=== PATIENT | female | born 1940 | race Caucasian/White ===

== ENCOUNTER 2019-09-26 19:50 | Emergency (ER) | payer OTHER ==
--- OUTSIDE RECORDS SUMMARY | 2019-09-26 19:53 | XMS REPORT ---
:1940 Author Organization eClinicalWorks Care Team Providers Name Role Phone Reinier Maurice Provider Role Unavailable Allergies No Known Allergies Problems Problem Type Condition Code Onset Dates Condition Status Problem Prediabetes R73.09 Active Problem Hypothyroidism E03.9 Active Problem Chronic kidney disease N18.9 Active Problem Balance problem R26.89 Active Problem Osteoarthritis of multiple joints M15.9 Active Problem Urinary incontinence, unspecified R32 Active type Problem Functional incontinence R39.81 Active Problem Hypertension I10 Active Problem Rheumatoid arthritis M06.9 Active Problem 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
--- OUTSIDE RECORDS SUMMARY | 2019-09-26 19:53 | XMS REPORT ---
:1940 Author Organization [employer]Works Care Team Providers Name Role Phone Reinier Maurice Provider Role Unavailable Allergies, Adverse Reactions, Alerts Substance Reaction Event Type N.K.D.A. Info Not Available Non Drug Allergy Problems Problem Type Condition Code Onset Dates Condition Status Assessment Urinary incontinence, unspecified R32 Active type Assessment Bilateral lower extremity edema R60.0 Active Assessment Hyperlipidemia E78.5 Active Assessment Rheumatoid arthritis M06.9 Active Assessment Hypertension I10 Active Assessment Radiculopathy, lumbar region M54.16 Active Assessment Spinal stenosis, lumbar region M48.061 Active without neurogenic claudication Assessment Iron deficiency anemia, unspecified D50.9 Active iron deficiency anemia type Assessment Hypothyroidism E03.9 Active Problem Chronic kidney disease N18.9 Active Problem Hypothyroidism E03.9 Active Problem Osteoarthritis of multiple joints M15.9 Active Problem Rheumatoid arthritis M06.9 Active Problem Hyperlipidemia E78.5 Active Problem Hypertension I10 Active Problem Iron deficiency anemia, unspecified D50.9 Active iron deficiency anemia type Problem Peripheral polyneuropathy G62.9 Active Problem Stasis dermatitis I83.10 Active Problem Pain in left ankle and joints of M25.572 Active left foot Assessment Vitamin B1 deficiency E51.9 Active Problem Anemia, unspecified type D64.9 Active Problem Pain in right foot M79.671 Active Assessment Peripheral polyneuropathy G62.9 Active Problem Urinary incontinence, unspecified R32 Active type Problem 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 Problem Functional incontinence R39.81 Active Problem Balance problem R26.89 Active Assessment Gout M10.9 Active Problem Bilateral lower extremity edema R60.0 Active Assessment Encounter for wheelchair assessment Z76.89 Active Problem Gastro-esophageal reflux disease K21.9 Active without esophagitis Assessment History of fall within past 90 days Z91.81 Active Problem Degenerative joint disease M19.90 Active Assessment Gastro-esophageal reflux disease K21.9 Active without esophagitis Problem Restless legs syndrome G25.81 Active Assessment Physical debility R53.81 Active Problem Constipation K59.00 Active Assessment 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 Problem Prediabetes R73.09 Active Problem Hypokalemia E87.6 Active Problem Gout M10.9 Active Medications Medication Code Code Instructions Start End Status Dosage System Date Date Align [facility] 54176007895 4 MG Orally Active not defined MiraLax [facility] 97305722435 - Orally twice Active 17 gram daily Klor-Con 10 [facility] 52277340609 10 MEQ Orally Active 1 tablet Twice a day with food Allopurinol [facility] 49052393009 100 MG Orally Active 2 tablet Once a day Tramadol HCl [facility] 71781122705 50 MG Orally Active 1 tablet every 6 hrs as needed Fish Oil [facility] [address]-66 Active not defined Neurontin [facility] 07788222208 300 MG Orally Active 1 capsule Once in the morning, 2 caps at bedtime Linzess [facility] 73623318564 290 MCG Orally Active 1 capsule Once a day Hydrocodone-Acet [facility] 08705388240 7.5-325 MG Active 1 tablet aminophen Orally every 6 as needed hrs Pravastatin [facility] 58040226802 20 MG Orally Active 1 tablet Sodium Once a day Sycamore [facility] [address]-70 Active not defined Tricor [facility] 34454982715 145 MG Orally Active 1 tablet Once a day with food Lasix [facility] 05554848265 40 MG Orally Active 1 tablet Twice a day Centrum Silver [facility] 21859363599 - Orally Active not defined Voltaren [facility] 98347084870 1 % Transdermal Active apply to 4 times a day affected area Gabapentin [facility] 14320044955 600 MG Orally Active 1 tablet Once a day Duloxetine HCl [facility] 67433535867 30 MG Orally Active 1 capsule Once a day Benazepril HCl [facility] 81734847902 40 MG Orally Active 1 tablet Once a day Prevacid [facility] 40807747009 30 MG Orally Active 1 capsule Once a day Plaquenil [facility] 90865294292 200 MG Orally Active 1 tablet Twice a day with food or milk B1 Natural [facility] 58876900916 250 MG Orally Active as directed Levothyroxine [facility] 70585188530 112 MCG Orally Active 1 tablet Sodium Once a day on an empty stomach in the morning Results No Known Results Summary Purpose eClinicalWorks Submission
--- OUTSIDE RECORDS SUMMARY | 2019-09-26 19:53 | XMS REPORT ---
:1940 Author Organization eClinicalWorks Care Team Providers Name Role Phone Reinier Maurice Provider Role Unavailable Allergies, Adverse Reactions, Alerts Substance Reaction Event Type N.K.D.A. Info Not Available Non Drug Allergy Problems Problem Type Condition Code Onset Dates Condition Status Assessment Gout M10.9 Active Assessment Gastro-esophageal reflux disease K21.9 Active without esophagitis Assessment Bilateral lower extremity edema R60.0 Active Assessment Encounter for wheelchair assessment Z76.89 Active Assessment Urinary incontinence, unspecified R32 Active type Assessment Spinal stenosis of lumbar region, M48.061 Active unspecified whether neurogenic claudication present Assessment Rheumatoid arthritis M06.9 Active Assessment Hyperlipidemia E78.5 Active Assessment Anemia, unspecified type D64.9 Active Problem Gout M10.9 Active Assessment Hypertension I10 Active Problem Constipation K59.00 Active Assessment Medicare annual wellness visit, Z00.00 Active subsequent Problem Prediabetes R73.09 Active Problem Hypothyroidism E03.9 Active Problem Chronic kidney disease N18.9 Active Problem Balance problem R26.89 Active Problem Urinary incontinence, unspecified R32 Active type Problem Osteoarthritis of multiple joints M15.9 Active Problem Functional incontinence R39.81 Active Assessment Hypothyroidism E03.9 Active Problem Hypertension I10 Active Problem Rheumatoid arthritis M06.9 Active Problem 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 Problem Hyperlipidemia E78.5 Active Assessment 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 Problem Stasis dermatitis I83.10 Active Assessment History of fall within past 90 days Z91.81 Active Problem Degenerative joint disease M19.90 Active Problem Pain in right foot M79.671 Active Assessment Physical debility R53.81 Active Problem Pain in left ankle and joints of M25.572 Active left foot Problem Gastro-esophageal reflux disease K21.9 Active without esophagitis Problem Hypokalemia E87.6 Active Problem Restless legs syndrome G25.81 Active Problem Bilateral lower extremity edema R60.0 Active Medications Medication Code Code Instructions Start End Status Dosage System Date Date Plaquenil [facility] 37074174263 200 MG Orally Active 1 tablet Twice a day with food or milk Levothyroxine [facility] 61837230777 112 MCG Orally Active 1 tablet Sodium Once a day on an empty stomach in the morning Centrum Silver [facility] 30331556307 - Orally Active not defined Fish Oil [facility] [address]-19 Active not defined Lasix [facility] 36275853265 40 MG Orally Active 1 tablet Twice a day Duloxetine HCl [facility] 28000060343 30 MG Orally Active 1 capsule Once a day Klor-Con 10 [facility] 15592991607 10 MEQ Orally Active 1 tablet Twice a day with food Allopurinol [facility] 60240145273 100 MG Orally Active 2 tablet Once a day Neurontin [facility] 84172785758 300 MG Orally Active 1 capsule Once in the morning, 2 caps at bedtime Mirabegron ER [facility] [address]-08 50 MG Orally January 19Jun Active 1 tablet Once a day 2018 Benazepril HCl [facility] 58435857914 40 MG Orally Active 1 tablet Once a day Gabapentin [facility] 09585228702 600 MG Orally Active 1 tablet Once a day Hydrocodone-Acet [facility] 10935641921 7.5-325 MG Active 1 tablet aminophen Orally every 6 as needed hrs Linzess [facility] 59570783693 290 MCG Orally Active 1 capsule Once a day Prevacid [facility] 37716566742 30 MG Orally Active 1 capsule Once a day Voltaren [facility] 12096747647 1 % Transdermal Active apply to 4 times a day affected area Crescent [facility] [address]-30 Active not defined Align [facility] 18947410667 4 MG Orally Active not defined Mirabegron ER [facility] [address]-12 50 MG Orally January 07Jun Active 1 tablet Once a day 2018 Pravastatin [facility] 10259612340 20 MG Orally Active 1 tablet Sodium Once a day Tramadol HCl [facility] 54813965122 50 MG Orally Active 1 tablet every 6 hrs as needed Tricor [facility] 79427569709 145 MG Orally Active 1 tablet Once a day with food MiraLax [facility] 99121823760 - Orally twice Active 17 gram daily Results No Known Results Summary Purpose eClinicalWorks Submission
--- OUTSIDE RECORDS SUMMARY | 2019-09-26 19:53 | XMS REPORT ---
:1940 Author Organization eClinicalWorks Care Team Providers Name Role Phone Maurice Hills Provider Role Unavailable Allergies No Known Allergies Problems Problem Type Condition Code Onset Dates Condition Status Problem Chronic kidney disease N18.9 Active Problem Rheumatoid arthritis M06.9 Active Problem Hypothyroidism E03.9 Active Problem Functional incontinence R39.81 Active Problem Pain in right foot M79.671 Active Problem Balance problem R26.89 Active Problem Osteoarthritis of multiple joints M15.9 Active Problem Anemia, unspecified type D64.9 Active Problem Hyperlipidemia E78.5 Active Problem Hypertension I10 Active Problem Urinary incontinence, unspecified R32 Active type Problem 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 Problem Degenerative joint disease M19.90 Active Problem Restless legs syndrome G25.81 Active Problem Pain in left ankle and joints of M25.572 Active left foot Problem Stasis dermatitis I83.10 Active Problem Hypokalemia E87.6 Active Problem Gout M10.9 Active Problem Bilateral lower extremity edema R60.0 Active Problem Constipation K59.00 Active Assessment Anemia, unspecified type D64.9 Active Problem Gastro-esophageal reflux disease K21.9 Active without esophagitis Problem Prediabetes R73.09 Active Medications No Known Medications Results No Known Results Summary Purpose eClinicalWorks Submission
--- OUTSIDE RECORDS SUMMARY | 2019-09-26 19:54 | XMS REPORT ---
:1940 [facility] Team Providers Name Role Phone Rach Gottlieb Provider Role Unavailable Allergies, Adverse Reactions, Alerts Substance Reaction Event Type N.K.D.A. 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 Problem Functional incontinence R39.81 Active Problem Balance problem R26.89 Active Problem Bilateral lower extremity edema R60.0 Active Problem Gastro-esophageal reflux disease K21.9 Active without esophagitis Problem Degenerative joint disease M19.90 Active Problem Restless legs syndrome G25.81 Active Problem Constipation K59.00 Active Problem Prediabetes R73.09 Active Problem Hypokalemia E87.6 Active Problem Gout M10.9 Active Medications Medication Code Code Instructions Start End Status Dosage System Date Date Hydrocodone-Acet [facility] 93830083182 7.5-325 MG Active 1 tablet aminophen Orally every 6 as needed hrs Align [facility] 11046807695 4 MG Orally Active not defined MiraLax ND 18758863583 - Orally twice Active 17 gram daily Huntly [facility] [address]-13 Active not defined Plaquenil ND 73271288230 200 MG Orally Active 1 tablet Twice a day with food or milk Klor-Con 10 [facility] 32446881372 10 MEQ Orally Active 1 tablet Twice a day with food Fish Oil [facility] [address]-90 Active not defined Gabapentin [facility] 39990218174 600 MG Orally Active 1 tablet Once a day B1 Natural [facility] 43121502651 250 MG Orally Active as directed Pravastatin [facility] 59590411677 20 MG Orally Active 1 tablet Sodium Once a day Tramadol HCl [facility] 26465560351 50 MG Orally Active 1 tablet every 6 hrs as needed Lasix [facility] 39718827349 40 MG Orally Active 1 tablet Twice a day Prevacid [facility] 87017260822 30 MG Orally Active 1 capsule Once a day Benazepril HCl [facility] 47672877075 40 MG Orally Active 1 tablet Once a day Levothyroxine [facility] 45743020016 112 MCG Orally Active 1 tablet Sodium Once a day on an empty stomach in the morning Linzess [facility] 75781548166 290 MCG Orally Active 1 capsule Once a day Duloxetine HCl [facility] 07245701555 30 MG Orally Active 1 capsule Once a day Neurontin [facility] 21343597147 300 MG Orally Active 1 capsule Once in the morning, 2 caps at bedtime Tricor [facility] 81839191603 145 MG Orally Active 1 tablet Once a day with food Voltaren [facility] 10450983974 1 % Transdermal Active apply to 4 times a day affected area Allopurinol [facility] 52298198809 100 MG Orally Active 2 tablet Once a day Centrum Silver [facility] 48313879792 - Orally Active not defined Results No Known Results Summary Purpose eClinicalWorks Submission
[2019-09-26] MEDS ORDERED: LIDOCAINE 1% MPF 30 ML VIAL ONE (20:17)
--- NOTE | 2019-09-26 20:59 | ER ---
Nurse's Notes [facility] Name: Hanane Huizar Age: 79 yrs Sex: Female : 1940 Arrival Date: 09/26/2019 Time: 19:52 Bed 24 Private MD: Diagnosis: Laceration without foreign body of right elbow Presentation: 19:53 Chief complaint: Patient states: lost her balance and fell, skin tear to right elbow, aj1 bleeding is controlled at this time. Coronavirus screen: The patient has NOT traveled to [place] in the past 14 days. Ebola Screen: Patient denies travel to an Ebola-affected area in the 21 days before illness onset. Complicating Factors: There are no complicating factors for this patient. Initial Sepsis Screen: Does the patient meet any 2 criteria? No. Patient's initial sepsis screen is negative. Does the patient have a suspected source of infection? No. Patient's initial sepsis screen is negative. Risk Assessment: Do you want to hurt yourself or someone else? Patient reports no desire to harm self or others. 19:53 Method Of Arrival: EMS: [facility] aj1 19:53 Acuity: ROSEMARY 4 aj1 Triage Assessment: 20:27 General: Appears in no apparent distress. comfortable, Behavior is calm, cooperative, aj1 appropriate for age. Pain: Complains of pain in right elbow. Injury Description: Laceration sustained to right elbow is bleeding no active bleeding noted. Historical: - Allergies: 20:16 No Known Allergies; aj1 - Home Meds: 20:16 benazepril 40 mg Oral tab 1 tab once daily [Active]; gabapentin 300 mg Oral cap 1 cap aj1 morning [Active]; lansoprazole 30 mg Oral cpDR 1 cap once daily [Active]; pravastatin 20 mg Oral tab 1 tab once daily [Active]; duloxetine oral oral [Active]; Myrbetriq oral oral [Active]; hydrocodone-acetaminophen 5-325 mg Oral tab 1 tab every 12 hours [Active]; hydrochlorothiazide Oral [Active]; - Immunization history:: Flu vaccine is up to date. - Social history:: Smoking status: Patient/guardian denies using tobacco. Screenin:28 Abuse screen: Denies threats or abuse. Denies injuries from another. Nutritional aj1 screening: No deficits noted. Tuberculosis screening: No symptoms or risk factors identified. Assessment: 20:28 General: Appears in no apparent distress. comfortable, Behavior is calm, cooperative, aj1 appropriate for age. Pain: Complains of pain in right elbow. Neuro: Level of Consciousness is awake, alert, obeys commands, Oriented to person, place, time, situation. Cardiovascular: Patient's skin is warm and dry. Respiratory: Airway is patent Respiratory effort is even, unlabored, Respiratory pattern is regular, symmetrical. GI: No signs and/or symptoms were reported involving the gastrointestinal system. : No signs and/or symptoms were reported regarding the genitourinary system. EENT: No signs and/or symptoms were reported regarding the EENT system. Derm: Skin is pink, warm \T\ dry. Musculoskeletal: Range of motion: intact in all extremities. Injury Description: Laceration sustained to right elbow is 0.5 to 2.5 cm long, not bleeding. 21:22 Reassessment: Patient appears in no apparent distress at this time. No changes from aj1 previously documented assessment. Patient and/or family updated on plan of care and expected duration. Pain level reassessed. Patient is alert, oriented x 3, equal unlabored respirations, skin warm/dry/pink. Vital Signs: 19:53 BP 121 / 72; Pulse 80; Resp 18; Temp 97.6; Pulse Ox 96% ; Height 5 ft. 8 in. (172.72 aj1 cm); 21:22 BP 135 / 80; Pulse 82; Resp 18; Pulse Ox 97% on R/A; aj1 ED Course: 19:52 Patient arrived in ED. aj1 19:55 Kenny Banda MD is Attending Physician. tw4 20:06 Triage completed. aj1 20:09 Nicki Veloz, RN is Primary Nurse. aj1 20:27 Arm band placed on. aj1 20:28 Patient has correct armband on for positive identification. Bed in low position. Call aj1 light in reach. Side rails up X2. 20:28 Assist provider with laceration repair on right elbow Set up tray. Performed by aj1 Kenny Banda MD. 21:22 Patient did not have IV access during this emergency room visit. aj1 Administered Medications: No medications were administered Outcome: 20:58 Discharge ordered by . tw4 21:22 Discharged to home via wheelchair, with family. aj1 21:22 Condition: good 21:22 Discharge instructions given to patient, Instructed on discharge instructions, follow up and referral plans. medication usage, wound care, Demonstrated understanding of instructions, follow-up care, medications, wound care, Prescriptions given X 1. 21:23 Patient left the ED. aj1 Signatures: Nicki Veloz RN RN aj1 Kenny Banda MD MD tw4
--- NOTE | 2019-09-26 21:24 | EDPHYS ---
Physician Documentation [facility] Name: Hanane Huizar Age: 79 yrs Sex: Female : 1940 Arrival Date: 09/26/2019 Time: 19:52 Bed 24 Private MD: ED Physician Kenny Banda HPI: 21:18 This 79 yrs old Female presents to ER via EMS with complaints of Laceration tw4 To Arm. 21:18 The patient has a laceration related to: occurred at home. The laceration(s) is(are) tw4 located on the . Onset: The symptoms/episode began/occurred today. Associated signs and symptoms: The patient has no apparent associated signs or symptoms. The patient has not experienced similar symptoms in the past. Historical: - Allergies: 20:16 No Known Allergies; aj1 - Home Meds: 20:16 benazepril 40 mg Oral tab 1 tab once daily [Active]; gabapentin 300 mg Oral cap 1 cap aj1 morning [Active]; lansoprazole 30 mg Oral cpDR 1 cap once daily [Active]; pravastatin 20 mg Oral tab 1 tab once daily [Active]; duloxetine oral oral [Active]; Myrbetriq oral oral [Active]; hydrocodone-acetaminophen 5-325 mg Oral tab 1 tab every 12 hours [Active]; hydrochlorothiazide Oral [Active]; - Immunization history:: Flu vaccine is up to date. - Social history:: Smoking status: Patient/guardian denies using tobacco. ROS: 21:18 Constitutional: Negative for fever, chills, and weight loss, Eyes: Negative for injury, tw4 pain, redness, and discharge, Cardiovascular: Negative for chest pain, palpitations, and edema, Respiratory: Negative for shortness of breath, cough, wheezing, and pleuritic chest pain, Abdomen/GI: Negative for abdominal pain, nausea, vomiting, diarrhea, and constipation, Back: Negative for injury and pain, Neuro: Negative for headache, weakness, numbness, tingling, and seizure, Psych: Negative for depression, anxiety, suicide ideation, homicidal ideation, and hallucinations. 21:18 MS/extremity: Positive for laceration, Negative for acute changes, injury or acute deformity, decreased range of motion, deformity, ecchymosis, erythema. Exam: 21:18 Constitutional: This is a well developed, well nourished patient who is awake, alert, tw4 and in no acute distress. Head/Face: Normocephalic, atraumatic. Chest/axilla: Normal chest wall appearance and motion. Nontender with no deformity. No lesions are appreciated. Cardiovascular: Regular rate and rhythm with a normal S1 and S2. No gallops, murmurs, or rubs. Normal PMI, no JVD. No pulse deficits. Respiratory: Lungs have equal breath sounds bilaterally, clear to auscultation and percussion. No rales, rhonchi or wheezes noted. No increased work of breathing, no retractions or nasal flaring. Abdomen/GI: Soft, non-tender, with normal bowel sounds. No distension or tympany. No guarding or rebound. No evidence of tenderness throughout. Neuro: Awake and alert, GCS 15, oriented to person, place, time, and situation. Cranial nerves II-XII grossly intact. Motor strength 5/5 in all extremities. Sensory grossly intact. Cerebellar exam normal. Normal gait. 21:18 Musculoskeletal/extremity: Extremities: noted in the right elbow: laceration, ROM: no acute changes, Circulation is intact in all extremities. Sensation intact. Vital Signs: 19:53 BP 121 / 72; Pulse 80; Resp 18; Temp 97.6; Pulse Ox 96% ; Height 5 ft. 8 in. (172.72 aj1 cm); 21:22 BP 135 / 80; Pulse 82; Resp 18; Pulse Ox 97% on R/A; aj1 Laceration: 21:18 Wound Repair of 5.1cm ( 2in ) subcutaneous laceration to right elbow. Distal tw4 neuro/vascular/tendon intact. Anesthesia: Local anesthetic administered with 3 mls of 1% lidocaine. Wound prep: Moderate cleansing by nurse. Skin closed with 3-0 Ethilon using interrupted sutures and sterile technique. Dressed with 4x4's. Patient tolerated well. MDM: 19:55 Patient medically screened. tw4 21:18 Differential diagnosis: superficial laceration. Data reviewed: vital signs, nurses tw4 notes. Counseling: I had a detailed discussion with the patient and/or guardian regarding: the historical points, exam findings, and any diagnostic results supporting the discharge/admit diagnosis. Special discussion: I discussed with the patient/guardian in detail that at this point there is no indication for admission to the hospital. It is understood, however, that if the symptoms persist or worsen the patient needs to return immediately for re-evaluation. Administered Medications: No medications were administered Disposition: 09/26/19 20:58 Discharged to Home. Impression: Laceration without foreign body of right elbow. - Condition is Stable. - Discharge Instructions: Laceration Care, Adult. - Prescriptions for Cleocin 150 mg Oral Capsule - take 1 capsule by ORAL route every 6 hours for 5 days; 20 capsule. - Medication Reconciliation Form, Thank You Letter, Antibiotic Education, Prescription Opioid Use form. - Follow up: Private Physician; When: Upon discharge from the Emergency Department; Reason: If symptoms return, Recheck today's complaints, Continuance of care, Re-evaluation by your physician. - Problem is new. - Symptoms have improved. Signatures: Nicki Veloz RN RN aj1 Kenny Banda MD MD tw4 Corrections: (The following items were deleted from the chart) 21:23 20:58 09/26/2019 20:58 Discharged to Home. Impression: Laceration without foreign body aj1 of right elbow. Condition is Stable. Forms are Medication Reconciliation Form, Thank You Letter, Antibiotic Education, Prescription Opioid Use. Follow up: Private Physician; When: Upon discharge from the Emergency Department; Reason: If symptoms return, Recheck today's complaints, Continuance of care, Re-evaluation by your physician. Problem is new. Symptoms have improved. tw4
[2019-09-26 21:35] VITALS: BP 121/72; TEMP 97.6; O2SAT 96
== END 2019-09-26 21:23 | disposition home or self-care (01) ==
LOC: ER 19:50
PROC: 0JQG0ZZ Repair Right Lower Arm Subcutaneous Tissue and Fascia, Open Approach (ICD-10-PCS; principal; 2019-09-26)
DX: S51.011A Laceration without foreign body of right elbow, initial encounter (principal); W18.39XA Other fall on same level, initial encounter; Y93.9 Activity, unspecified; Y92.9 Unspecified place or not applicable
CPT/HCPCS: 99283

== ENCOUNTER 2019-10-07 13:32 | Emergency (ER) | payer OTHER ==
--- OUTSIDE RECORDS SUMMARY | 2019-10-07 13:42 | XMS REPORT ---
[...] End Status Dosage System Date Date Plaquenil [facility] 14504229071 200 MG Orally Active 1 tablet Twice a day with food or milk Levothyroxine [facility] 80466139222 112 MCG Orally Active 1 tablet Sodium Once a day on an empty stomach in the morning Centrum Silver [facility] 78162829191 - Orally Active not defined Fish Oil [facility] [address]-55 Active not defined Lasix [facility] 26956977227 40 MG Orally Active 1 tablet Twice a day Duloxetine HCl [facility] 04028380512 30 MG Orally Active 1 capsule Once a day Klor-Con [address] [facility] 05307557102 10 MEQ Orally Active 1 tablet Twice a day with food Allopurinol [facility] 61647725705 100 MG Orally Active 2 tablet Once a day Neurontin [facility] 93097898901 300 MG Orally Active 1 capsule Once in the morning, 2 caps at bedtime Mirabegron ER [facility] [address]-58 50 MG Orally January 19Jun Active 1 tablet Once a day 2018 Benazepril HCl [facility] 39488203337 40 MG Orally Active 1 tablet Once a day Gabapentin [facility] 44986618864 600 MG Orally Active 1 tablet Once a day Hydrocodone-Acet [facility] 81238650061 7.5-325 MG Active 1 tablet aminophen Orally every 6 as needed hrs Linzess [facility] 43559243037 290 MCG Orally Active 1 capsule Once a day Prevacid [facility] 76641915560 30 MG Orally Active 1 capsule Once a day Voltaren [facility] 63187632673 1 % Transdermal Active apply to 4 times a day affected area [place] [facility] [address]-28 Active not defined Align [facility] 38618696891 4 MG Orally Active not defined Mirabegron ER [facility] [address]-41 50 MG Orally January 07Jun Active 1 tablet Once a day 2018 Pravastatin [facility] 05751172575 20 MG Orally Active 1 tablet Sodium Once a day Tramadol HCl [facility] 89306031379 50 MG Orally Active 1 tablet every 6 hrs as needed Tricor [facility] 70745084120 145 MG Orally Active 1 tablet Once a day with food MiraLax [facility] 79251004216 - Orally twice Active 17 gram daily Results No Known Results Summary Purpose eClinicalWorks Submission
--- OUTSIDE RECORDS SUMMARY | 2019-10-07 13:43 | XMS REPORT ---
[...] End Status Dosage System Date Date Align [facility] 46290190554 4 MG Orally Active not defined MiraLax [facility] 74388352232 - Orally twice Active 17 gram daily Klor-Con 10 [facility] 35423796809 10 MEQ Orally Active 1 tablet Twice a day with food Allopurinol [facility] 45033213718 100 MG Orally Active 2 tablet Once a day Tramadol HCl [facility] 99638780469 50 MG Orally Active 1 tablet every 6 hrs as needed Fish Oil [facility] [address]-39 Active not defined Neurontin [facility] 41132472542 300 MG Orally Active 1 capsule Once in the morning, 2 caps at bedtime Linzess [facility] 30211744950 290 MCG Orally Active 1 capsule Once a day Hydrocodone-Acet [facility] 46714864997 7.5-325 MG Active 1 tablet aminophen Orally every 6 as needed hrs Pravastatin [facility] 58199785741 20 MG Orally Active 1 tablet Sodium Once a day Lamont [facility] [address]-05 Active not defined Tricor [facility] 07470187821 145 MG Orally Active 1 tablet Once a day with food Lasix [facility] 46543573461 40 MG Orally Active 1 tablet Twice a day Centrum Silver [facility] 49678599388 - Orally Active not defined Voltaren [facility] 73592779677 1 % Transdermal Active apply to 4 times a day affected area Gabapentin [facility] 89942649912 600 MG Orally Active 1 tablet Once a day Duloxetine HCl [facility] 23331265880 30 MG Orally Active 1 capsule Once a day Benazepril HCl [facility] 58684506978 40 MG Orally Active 1 tablet Once a day Prevacid [facility] 88249757421 30 MG Orally Active 1 capsule Once a day Plaquenil [facility] 30051509739 200 MG Orally Active 1 tablet Twice a day with food or milk B1 Natural [facility] 68943237719 250 MG Orally Active as directed Levothyroxine [facility] 27017539735 112 MCG Orally Active 1 tablet Sodium Once a day on an empty stomach in the morning Results No Known Results Summary Purpose eClinicalWorks Submission
--- OUTSIDE RECORDS SUMMARY | 2019-10-07 13:43 | XMS REPORT ---
:1940 [facility] Team Providers Name Role Phone Rach [...] End Status Dosage System Date Date Hydrocodone-Acet [facility] 97116922236 7.5-325 MG Active 1 tablet aminophen Orally every 6 as needed hrs Align [facility] 11328143459 4 MG Orally Active not defined MiraLax ND 29155913123 - Orally twice Active 17 gram daily [place] [facility] [address]-86 Active not defined Plaquenil ND 49488957041 200 MG Orally Active 1 tablet Twice a day with food or milk Klor-Con [address] [facility] 41828434683 10 MEQ Orally Active 1 tablet Twice a day with food Fish Oil [facility] [address]-37 Active not defined Gabapentin [facility] 99649136760 600 MG Orally Active 1 tablet Once a day B1 Natural [facility] 22999379231 250 MG Orally Active as directed Pravastatin [facility] 12253879997 20 MG Orally Active 1 tablet Sodium Once a day Tramadol HCl [facility] 64968726645 50 MG Orally Active 1 tablet every 6 hrs as needed Lasix [facility] 05365497773 40 MG Orally Active 1 tablet Twice a day Prevacid [facility] 63005495228 30 MG Orally Active 1 capsule Once a day Benazepril HCl [facility] 05498540754 40 MG Orally Active 1 tablet Once a day Levothyroxine [facility] 92480258959 112 MCG Orally Active 1 tablet Sodium Once a day on an empty stomach in the morning Linzess [facility] 30377393150 290 MCG Orally Active 1 capsule Once a day Duloxetine HCl [facility] 67188091784 30 MG Orally Active 1 capsule Once a day Neurontin [facility] 20630215974 300 MG Orally Active 1 capsule Once in the morning, 2 caps at bedtime Tricor [facility] 72972126312 145 MG Orally Active 1 tablet Once a day with food Voltaren [facility] 66587564624 1 % Transdermal Active apply to 4 times a day affected area Allopurinol [facility] 59103891061 100 MG Orally Active 2 tablet Once a day Centrum Silver [facility] 93441429258 - Orally Active not defined Results No Known Results Summary Purpose eClinicalWorks Submission
--- OUTSIDE RECORDS SUMMARY | 2019-10-07 13:43 | XMS REPORT ---
:1940 Author Organization eClinicalWorks Care Team Providers Name Role Phone [place] Provider Role Unavailable Allergies No Known Allergies Problems Problem Type Condition Code Onset Dates Condition Status Problem Rheumatoid arthritis M06.9 Active Problem Hyperlipidemia E78.5 Active Problem Hypertension I10 Active Problem Iron deficiency anemia, unspecified D50.9 Active iron deficiency anemia type Problem Stasis dermatitis I83.10 Active Problem Peripheral polyneuropathy G62.9 Active Problem Pain in left ankle and joints of M25.572 Active left foot Problem Pain in right foot M79.671 Active Problem Anemia, unspecified type D64.9 Active Problem Urinary incontinence, unspecified R32 Active [...] R73.09 Active Problem Hypokalemia E87.6 Active Problem Chronic kidney disease N18.9 Active Problem Osteoarthritis of multiple 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
[2019-10-07] MEDS ORDERED: LIDOCAINE 1% MPF 5 ML VIAL ONE (14:10)
--- NOTE | 2019-10-07 14:35 | ER ---
Nurse's Notes [facility] Name: Hanane Huizar Age: 79 yrs Sex: Female : 1940 Arrival Date: 10/07/2019 Time: 13:37 Bed 20 Private MD: Diagnosis: Wound Dehiscence Presentation: 10/06 14:09 Chief complaint: Patient states: "I came in last week for stitches, my home health vc nurse took one out on Saturday and it was not ready, she took another one out on Saturday and now the whole thing opened back up.". Coronavirus screen: The patient has NOT traveled to a country currently being monitored by the CDC within the last 14 days. Coronavirus screen: The patient has NOT traveled to a country currently being monitored by the CDC within the last 14 days. Proceed with normal triage procedures. Ebola Screen: No symptoms or risks identified at this time. Initial Sepsis Screen: Does the patient meet any 2 criteria? No. Patient's initial sepsis screen is negative. Does the patient have a suspected source of infection? No. Patient's initial sepsis screen is negative. Risk Assessment: Do you want to hurt yourself or someone else? Patient reports no desire to harm self or others. 14:09 Acuity: ROSEMARY 4 vc 14:09 Method Of Arrival: Wheelchair vc 14:26 Onset of symptoms is unknown. vc Triage Assessment: 14:25 General: Appears in no apparent distress. uncomfortable, Behavior is calm, cooperative, vc appropriate for age. Pain: Denies pain. Historical: - Allergies: 14:25 No Known Allergies; vc - Home Meds: 14:25 benazepril 40 mg Oral tab 1 tab once daily [Active]; duloxetine Oral [Active]; vc gabapentin 300 mg Oral cap 1 cap morning [Active]; Hydrochlorothiazide Oral [Active]; hydrocodone-acetaminophen 5-325 mg Oral tab 1 tab every 12 hours [Active]; lansoprazole 30 mg Oral cpDR 1 cap once daily [Active]; Myrbetriq Oral [Active]; pravastatin 20 mg Oral tab 1 tab once daily [Active]; - PMHx: 14:25 Hypothyroidism; Arthritis; spinal stenosis; Hypertension; Hyperlipidemia; vc - Immunization history:: Adult Immunizations up to date. - Social history:: Smoking status: Patient denies any tobacco usage or history of. Screenin:08 Abuse screen: Denies threats or abuse. Nutritional screening: No deficits noted. vc Tuberculosis screening: No symptoms or risk factors identified. Fall Risk None identified. Assessment: 14:27 General: Appears in no apparent distress. Behavior is calm, cooperative, appropriate vc for age. Pain: Denies pain. Neuro: Level of Consciousness is awake, alert, obeys commands, Oriented to person, place, time, situation, Appropriate for age. Cardiovascular: Capillary refill Patient's skin is warm and dry. Respiratory: Airway is patent Respiratory effort is even, unlabored, Respiratory pattern is regular, symmetrical. GI: No signs and/or symptoms were reported involving the gastrointestinal system. : No signs and/or symptoms were reported regarding the genitourinary system. EENT: No signs and/or symptoms were reported regarding the EENT system. Derm: Wound noted right elbow. Musculoskeletal: No signs and/or symptoms reported regarding the musculoskeletal system. Vital Signs: 13:48 BP 131 / 79; Pulse 85; Resp 18; Temp 98.6; Pulse Ox 94% ; Weight 145.15 kg; Height 5 ms ft. 8 in. (172.72 cm); Pain 6/10; 14:30 BP 139 / 77; Pulse 81; Resp 18; Pulse Ox 90% on R/A; vc 13:48 Body Mass Index 48.66 (145.15 kg, 172.72 cm) ms ED Course: 13:37 Patient arrived in ED. fj1 13:44 Otf Paulino FNP-C is [facility]. la1 13:44 Jovanni Lucas MD is Attending Physician. la1 14:03 Elina Lazaro RN is Primary Nurse. vc 14:13 Triage completed. vc 14:26 Arm band placed on. vc 14:27 Patient has correct armband on for positive identification. cardiac monitor on. Pulse vc ox on. 14:30 Assist provider with laceration repair on right elbow that was 2.5 cm. or less using vc sutures. Set up tray. Performed by Otf VALLE Dressed with 4X4s, Kerlix, Patient tolerated well. Patient did not have IV access during this emergency room visit. Administered Medications: 14:20 Drug: Lidocaine (1 %) 5 mg Route: Infiltration; vc Outcome: 14:33 Discharge ordered by MD. dietz 14:50 Discharged to home via wheelchair, with home health nurse 14:50 Condition: good 14:50 Discharge instructions given to patient, Instructed on discharge instructions, follow up and referral plans. medication usage, Demonstrated understanding of instructions, follow-up care. 14:53 Patient left the ED. vc Signatures: Lucinda Bush ms, Lee, DOSIER OPERATOR-C DOSIER OPERATOR-Cla1 Elina Lazaro RN RN Hood Bedoya fj1
--- NOTE | 2019-10-07 14:35 | EDPHYS ---
Physician Documentation [facility] Name: Hanane Huizar Age: 79 yrs Sex: Female : 1940 Arrival Date: 10/07/2019 Time: 13:37 Bed 20 Private MD: ED Physician Jovanni Lucas HPI: 10/06 13:58 This 79 yrs old Female presents to ER via Unassigned with complaints of la1 Suture Recheck. 13:58 Patient presents to ED for recheck of: laceration. The affected area is on the right la1 elbow. Previous treatment: Treatment type: The patient's original treatment included sutures, Previous recheck: sutures removed a few days ago. Progress: The patient reports wound has dehisced . The patient has not experienced similar symptoms in the past. Historical: - Allergies: 14:25 No Known Allergies; vc - Home Meds: 14:25 benazepril 40 mg Oral tab 1 tab once daily [Active]; duloxetine Oral [Active]; vc gabapentin 300 mg Oral cap 1 cap morning [Active]; Hydrochlorothiazide Oral [Active]; hydrocodone-acetaminophen 5-325 mg Oral tab 1 tab every 12 hours [Active]; lansoprazole 30 mg Oral cpDR 1 cap once daily [Active]; Myrbetriq Oral [Active]; pravastatin 20 mg Oral tab 1 tab once daily [Active]; - PMHx: 14:25 Hypothyroidism; Arthritis; spinal stenosis; Hypertension; Hyperlipidemia; vc - Immunization history:: Adult Immunizations up to date. - Social history:: Smoking status: Patient denies any tobacco usage or history of. ROS: 13:58 Constitutional: Negative for fever, chills, and weight loss, Neck: Negative for injury, la1 pain, and swelling, Cardiovascular: Negative for chest pain, palpitations, and edema, Respiratory: Negative for shortness of breath, cough, wheezing, and pleuritic chest pain, Abdomen/GI: Negative for abdominal pain, nausea, vomiting, diarrhea, and constipation, Back: Negative for injury and pain. 13:58 Skin: Negative for injury, rash, and discoloration, Neuro: Negative for headache, weakness, numbness, tingling, and seizure. 13:58 MS/extremity: Positive for laceration. Exam: 13:59 Constitutional: This is a well developed, well nourished patient who is awake, alert, la1 and in no acute distress. Head/Face: Normocephalic, atraumatic. Chest/axilla: Normal chest wall appearance and motion. Respiratory: No increased work of breathing, Skin: Warm, dry with normal turgor. Normal color with no rashes, no lesions, and no evidence of cellulitis. No redness, swelling, or drainage from right elbow wound, tissue appears healthy. About 1cm wound dehiscence in length and about 1cm deep. Full ROM, cap refill < 2 secs distal to wound. Vital Signs: 13:48 BP 131 / 79; Pulse 85; Resp 18; Temp 98.6; Pulse Ox 94% ; Weight 145.15 kg; Height 5 ms ft. 8 in. (172.72 cm); Pain 6/10; 14:30 BP 139 / 77; Pulse 81; Resp 18; Pulse Ox 90% on R/A; vc 13:48 Body Mass Index 48.66 (145.15 kg, 172.72 cm) ms Laceration: 14:31 Wound Repair of 1cm ( 0.4in ) subcutaneous laceration to right elbow. Linear shaped.. la1 Distal neuro/vascular/tendon intact. Anesthesia: Local anesthetic administered with 2 mls of 1% lidocaine. Wound prep: Moderate cleansing with hibiclenz by me. Skin closed with 1 3-0 Prolene using simple sutures and sterile technique. Patient tolerated well. MDM: 13:51 Patient medically screened. la1 14:32 Data reviewed: vital signs, nurses notes, I have discussed the patient's la1 presentation/case with the attending Emergency Department Physician; and as a result, I will discharge patient. Data interpreted: Pulse oximetry: on room air is 94 %. Interpretation: acceptable. Counseling: I had a detailed discussion with the patient and/or guardian regarding: the historical points, exam findings, and any diagnostic results supporting the discharge/admit diagnosis, the need for outpatient follow up, a family practitioner, to return to the emergency department if symptoms worsen or persist or if there are any questions or concerns that arise at home. ED course: wound was deep through sub q tissue, placed one suture to grossly approximate wound. Instructed pt to FU with the next 7-10 days for wound recheck. . 10/06 14:31 Order name: Wound dressing; Complete Time: 16:25 la1 Administered Medications: 14:20 Drug: Lidocaine (1 %) 5 mg Route: Infiltration; vc Disposition: 16:36 Co-signature as Attending Physician, Jovanni Lucas MD I agree with the assessment and kdr plan of care. Disposition: 10/07/19 14:33 Discharged to Home. Impression: Wound Dehiscence. - Condition is Stable. - Discharge Instructions: Laceration Care, Adult, Sutured Wound Care, Sutured Wound Care, [id number], Wound Dehiscence, [id number]. - Medication Reconciliation Form, Thank You Letter form. - Follow up: Private Physician; When: 2 - 3 days; Reason: Recheck today's complaints, Re-evaluation by your physician. - Problem is an ongoing problem. - Symptoms have improved. Signatures: Jovanni Lucas MD MD kdr Otf Paulino, [facility] Elina Lazaro RN RN vc Corrections: (The following items were deleted from the chart) 14:53 14:33 10/07/2019 14:33 Discharged to Home. Impression: Wound Dehiscence. Condition is vc Stable. Forms are Medication Reconciliation Form, Thank You Letter, Antibiotic Education, Prescription Opioid Use. Follow up: Private Physician; When: 2 - 3 days; Reason: Recheck today's complaints, Re-evaluation by your physician. Problem is an ongoing problem. Symptoms have improved. la1
[2019-10-07 15:00] VITALS: BP 131/79; TEMP 98.6; O2SAT 94
== END 2019-10-07 14:53 | disposition home or self-care (01) ==
LOC: ER 13:32
PROC: 0JQG0ZZ Repair Right Lower Arm Subcutaneous Tissue and Fascia, Open Approach (ICD-10-PCS; principal; 2019-10-07)
DX: T81.30XA Disruption of wound, unspecified, initial encounter (principal); I10 Essential (primary) hypertension; E78.5 Hyperlipidemia, unspecified
CPT/HCPCS: 99284

== ENCOUNTER 2019-10-18 08:16 | Emergency (ER) | payer OTHER ==
--- OUTSIDE RECORDS SUMMARY | 2019-10-18 08:19 | XMS REPORT ---
[...] End Status Dosage System Date Date Plaquenil [facility] [place] [facility]] 95718573970 200 MG Orally Active 1 tablet Twice a day with food or milk Levothyroxine [facility] [place] 2] 79328709153 112 MCG Orally Active 1 tablet Sodium Once a day on an empty stomach in the morning Centrum Silver [facility] [place] 2] 79738933634 - Orally Active not defined Fish Oil [facility] [place]NOTE 2[place] [address]-81 Active not defined Lasix [facility] [place] 2] 11747486812 40 MG Orally Active 1 tablet Twice a day Duloxetine HCl [facility] [place]NOTE 2] 90999758819 30 MG Orally Active 1 capsule Once a day Klor-Con 10 [facility] [place]NOTE 2] 25042581639 10 MEQ Orally Active 1 tablet Twice a day with food Allopurinol [facility] [place]NOTE 2] 62616341848 100 MG Orally Active 2 tablet Once a day Neurontin [facility] [place]NOTE 2] 84745186465 300 MG Orally Active 1 capsule Once in the morning, 2 caps at bedtime Mirabegron ER [facility] [place]NOTE 2] [address]-32 50 MG Orally January 19Jun Active 1 tablet Once a day 2018 Benazepril HCl [facility] [place]NOTE 2] 28577255362 40 MG Orally Active 1 tablet Once a day Gabapentin [facility] [place] 2] 95892751626 600 MG Orally Active 1 tablet Once a day Hydrocodone-Acet [facility] [place]NOTE 2] 43853988828 7.5-325 MG Active 1 tablet aminophen Orally every 6 as needed hrs Linzess [facility] [place] 2] 07403443736 290 MCG Orally Active 1 capsule Once a day Prevacid [facility] [place] 2] 96164473718 30 MG Orally Active 1 capsule Once a day Voltaren [facility] [place]NOTE 2] 97550988411 1 % Transdermal Active apply to 4 times a day affected area [place] [facility] [place]NOTE 2[facility] [address]-48 Active not defined Align [facility] [place]NOTE 2] 40521219467 4 MG Orally Active not defined Mirabegron ER [facility] [place]NOTE 2] [address]-19 50 MG Orally January 07Jun Active 1 tablet Once a day 2018 Pravastatin [facility] [place]NOTE 2] 89268985119 20 MG Orally Active 1 tablet Sodium Once a day Tramadol HCl [facility] [place]NOTE 2] 55003236770 50 MG Orally Active 1 tablet every 6 hrs as needed Tricor [facility] [place]NOTE 2] 23645209070 145 MG Orally Active 1 tablet Once a day with food MiraLax [facility] [place]NOTE 2] 57869607461 - Orally twice Active 17 gram daily Results No Known Results Summary Purpose eClinicalWorks Submission
--- OUTSIDE RECORDS SUMMARY | 2019-10-18 08:20 | XMS REPORT ---
[...] End Status Dosage System Date Date Align [facility] 72806788044 4 MG Orally Active not defined MiraLax [facility] 88984349513 - Orally twice Active 17 gram daily Klor-Con 10 [facility] 76142724047 10 MEQ Orally Active 1 tablet Twice a day with food Allopurinol [facility] 67724712375 100 MG Orally Active 2 tablet Once a day Tramadol HCl [facility] 80047473461 50 MG Orally Active 1 tablet every 6 hrs as needed Fish Oil [facility] [address]-36 Active not defined Neurontin [facility] 20808794256 300 MG Orally Active 1 capsule Once in the morning, 2 caps at bedtime Linzess [facility] 01809271945 290 MCG Orally Active 1 capsule Once a day Hydrocodone-Acet [facility] 79060425914 7.5-325 MG Active 1 tablet aminophen Orally every 6 as needed hrs Pravastatin [facility] 43469236096 20 MG Orally Active 1 tablet Sodium Once a day Lynch [facility] [address]-56 Active not defined Tricor [facility] 34425713170 145 MG Orally Active 1 tablet Once a day with food Lasix [facility] 45231439252 40 MG Orally Active 1 tablet Twice a day Centrum Silver [facility] 44352698438 - Orally Active not defined Voltaren [facility] 24889135759 1 % Transdermal Active apply to 4 times a day affected area Gabapentin [facility] 04330720455 600 MG Orally Active 1 tablet Once a day Duloxetine HCl [facility] 17494947756 30 MG Orally Active 1 capsule Once a day Benazepril HCl [facility] 71781206798 40 MG Orally Active 1 tablet Once a day Prevacid [facility] 92288772910 30 MG Orally Active 1 capsule Once a day Plaquenil [facility] 65550573522 200 MG Orally Active 1 tablet Twice a day with food or milk B1 Natural [facility] 86057932652 250 MG Orally Active as directed Levothyroxine [facility] 14452595747 112 MCG Orally Active 1 tablet Sodium Once a day on an empty stomach in the morning Results No Known Results Summary Purpose eClinicalWorks Submission
--- OUTSIDE RECORDS SUMMARY | 2019-10-18 08:20 | XMS REPORT ---
:1940 [facility] Providers Name Role Phone Rcah Gottlieb Provider Role Unavailable Allergies, Adverse Reactions, [...] System Date Date Hydrocodone-Acet [facility] 28508960875 7.5-325 MG Active 1 tablet aminophen Orally every 6 as needed hrs Align [facility] 67067103570 4 MG Orally Active not defined MiraLax ND 26334790135 - Orally twice Active 17 gram daily [place] [facility] [address]-39 Active not defined Plaquenil ND 78093998996 200 MG Orally Active 1 tablet Twice a day with food or milk Klor-Con 10 [facility] 81450043166 10 MEQ Orally Active 1 tablet Twice a day with food Fish Oil [facility] [address]-10 Active not defined Gabapentin [facility] 72067811126 600 MG Orally Active 1 tablet Once a day B1 Natural [facility] 33835892048 250 MG Orally Active as directed Pravastatin [facility] 35663943219 20 MG Orally Active 1 tablet Sodium Once a day Tramadol HCl [facility] 43020044262 50 MG Orally Active 1 tablet every 6 hrs as needed Lasix [facility] 34287339440 40 MG Orally Active 1 tablet Twice a day Prevacid [facility] 46101546956 30 MG Orally Active 1 capsule Once a day Benazepril HCl [facility] 80193514654 40 MG Orally Active 1 tablet Once a day Levothyroxine [facility] 63937099170 112 MCG Orally Active 1 tablet Sodium Once a day on an empty stomach in the morning Linzess [facility] 77443129403 290 MCG Orally Active 1 capsule Once a day Duloxetine HCl [facility] 27797798262 30 MG Orally Active 1 capsule Once a day Neurontin [facility] 27189906651 300 MG Orally Active 1 capsule Once in the morning, 2 caps at bedtime Tricor [facility] 13058991503 145 MG Orally Active 1 tablet Once a day with food Voltaren [facility] 96584901691 1 % Transdermal Active apply to 4 times a day affected area Allopurinol [facility] 82614039742 100 MG Orally Active 2 tablet Once a day Centrum Silver [facility] 71689539069 - Orally Active not defined Results No Known Results Summary Purpose eClinicalWorks Submission
[2019-10-18] MEDS ORDERED: MUPIROCIN 2% OINT 22GM TUBE TOP ONE (09:33)
[2019-10-18] MEDS ORDERED: Mastisol Adhesive Liq ONE (09:35)
--- NOTE | 2019-10-18 09:46 | ER ---
Nurse's Notes [facility] Name: Hanane Huizar Age: 79 yrs Sex: Female : 1940 Arrival Date: 10/18/2019 Time: 08:23 Bed 20 Private MD: Diagnosis: Fall on same level from slipping, tripping and stumbling;Laceration without foreign body of right elbow Presentation: 10/17 08:15 Chief complaint: EMS states: Pt. legs are weak and she fell this morning. denies rb1 hitting head or LOC. Has a previous laceration on the right elbow that has reopened due to the fall. Pain 02/04. History HTN, hypothyroidism, high cholesterol. NKDA, home medications are Benazepril, Gabapentin, and Hydrocodone. BP 148/61, P 80's, 95-98% RA. Care prior to arrival: None. Mechanism of Injury: Fall from standing position. 08:15 Acuity: ROSEMARY 3 rb1 08:15 Method Of Arrival: EMS: [facility] rb1 08:15 Coronavirus screen: Patient denies fever greater than 100.4F, cough, shortness of rb1 breath, or difficulty breathing. Proceed with normal triage process. Ebola Screen: Patient negative for fever greater than or equal to 101.5 degrees Fahrenheit, and additional compatible Ebola Virus Disease symptoms. Initial Sepsis Screen: Does the patient meet any 2 criteria? No. Patient's initial sepsis screen is negative. Does the patient have a suspected source of infection? Yes: Skin breakdown/wound. Risk Assessment: Do you want to hurt yourself or someone else? Patient reports no desire to harm self or others. 08:15 Onset of symptoms was October 18, 2019. rb1 Historical: - Allergies: 08:15 No Known Allergies; rb1 - Home Meds: 08:15 benazepril 40 mg Oral tab 1 tab once daily [Active]; duloxetine Oral [Active]; rb1 gabapentin 300 mg Oral cap 1 cap morning [Active]; Hydrochlorothiazide Oral [Active]; hydrocodone-acetaminophen 5-325 mg Oral tab 1 tab every 12 hours [Active]; lansoprazole 30 mg Oral cpDR 1 cap once daily [Active]; Myrbetriq Oral [Active]; pravastatin 20 mg Oral tab 1 tab once daily [Active]; - PMHx: 08:15 Arthritis; Hyperlipidemia; Hypertension; Hypothyroidism; spinal stenosis; rb1 - Immunization history: Last tetanus immunization: - up to date. - Social history:: Smoking status: Patient/guardian denies using. Screenin:15 Abuse screen: Denies threats or abuse. Nutritional screening: No deficits noted. rb1 Tuberculosis screening: No symptoms or risk factors identified. Fall Risk Fall in past 12 months (25 points). Secondary diagnosis (15 points) impaired mobility, No IV (0 pts). Ambulatory Aid- Crutches/Cane/Walker (15 pts). Gait- Impaired (20 pts.). Mental Status- Oriented to own ability (0 pts). Total Pacheco Fall Scale indicates High Risk Score (45 or more points). Fall prevention measures have been instituted. Side Rails Up X 2 Placed Close to Nursing Station 1:1 Attendant Assigned Frequent Obs/Assessments Occuring As available patient and family educated on Fall Prevention Program and Strategies. Assessment: 08:15 General: Appears in no apparent distress. comfortable, obese, Behavior is calm, rb1 cooperative, Denies feeling ill. Pain: Complains of pain in right elbow Pain currently is 7 out of 10 on a pain scale. Neuro: Level of Consciousness is awake, alert, obeys commands, Oriented to person, place, time, situation. Neuro: Denies blurred vision dizziness, headache. Cardiovascular: Capillary refill < 3 seconds is brisk in bilateral fingers. Cardiovascular: Denies chest pain. Respiratory: Airway is patent Respiratory effort is even, unlabored, Respiratory pattern is regular, symmetrical. GI: No signs and/or symptoms were reported involving the gastrointestinal system. : No signs and/or symptoms were reported regarding the genitourinary system. Derm: Skin is pink, warm \\T\\ dry. Musculoskeletal: Range of motion: intact in all extremities. Injury Description: Laceration sustained to right elbow is not bleeding. 09:11 Reassessment: Patient appears in no apparent distress at this time. No changes from rb1 previously documented assessment. 09:31 Reassessment: Removed the one loose stitch that was in the right elbow. Performed wound rb1 care on the right elbow, pt. tolerated well. Minimal bleeding noted during cleaning and after wound care. 09:58 Reassessment: Called [facility] and spoke to Maddie. She stated, "Unfortunately we [facility] don't have anyone here that can come and get her." I notified Susana, Screener Perfumer that the pt. needs transportation. Discharge pending due to awaiting transportation. 10:15 Reassessment: Patient appears in no apparent distress at this time. Patient and/or rb1 family updated on plan of care and expected duration. Pain level reassessed. Patient is alert, oriented x 3, equal unlabored respirations, skin warm/dry/pink. No bleeding noted on the right elbow dressing. Vital Signs: 08:15 BP 132 / 66; Pulse 80; Resp 19; Temp 99.2(O); Pulse Ox 96% on R/A; Weight 139.71 kg rb1 (R); Height 5 ft. 8 in. (172.72 cm); Pain 7/10; 09:15 BP 146 / 73; Pulse 83; Resp 18; Pulse Ox 97% on R/A; rb1 10:15 BP 128 / 62; Pulse 84; Resp 18; Pulse Ox 97% on R/A; rb1 08:15 Body Mass Index 46.83 (139.71 kg, 172.72 cm) rb1 ED Course: 08:15 Patient has correct armband on for positive identification. Bed in low position. Call rb1 light in reach. Side rails up X2. Pulse ox on. NIBP on. Warm blanket given. 08:15 Arm band placed on right wrist. rb1 08:23 Patient arrived in ED. rb1 08:24 Peggy Zu[facility]C [facility]. kb 08:24 Jovanni Lucas MD is Attending Physician. kb 08:27 Triage completed. rb1 08:38 Nara Lamb, RN is Primary Nurse. rb1 08:58 Shoulder Right (2 View) XRAY In Process Unspecified. EDMS 08:58 Elbow Right 3 View XRAY In Process Unspecified. EDMS 10:37 No provider procedures requiring assistance completed. Patient did not have IV access rb1 during this emergency room visit. Administered Medications: No medications were administered Outcome: 09:45 Discharge ordered by . kb 10:37 Discharged to [facility] rb1 10:37 Condition: stable 10:37 Discharge instructions given to patient, Instructed on discharge instructions, follow up and referral plans. Demonstrated understanding of instructions, follow-up care, Prescriptions given X none 10:38 Patient left the ED. rb1 Signatures: Dispatcher [employer] EDMS Peggy Zuñiga FNP-C [employer]-Ckb Nara Lamb, RN RN rb1
--- NOTE | 2019-10-18 09:46 | EDPHYS ---
Physician Documentation [facility] Name: Hanane Huizar Age: 79 yrs Sex: Female : 1940 Arrival Date: 10/18/2019 Time: 08:23 Bed 20 Private MD: ED Physician Jovanni Lucas HPI: 10/17 08:32 This 79 yrs old Female presents to ER via EMS with complaints of Fall Injury. kb 08:32 Details of fall: The patient fell from an upright position, while walking. Onset: The kb symptoms/episode began/occurred this morning. Associated injuries: The patient sustained right elbow, hematoma, laceration, swelling. Severity of symptoms: At their worst the symptoms were moderate, in the emergency department the symptoms are unchanged. The patient has not experienced similar symptoms in the past. The patient has been recently seen at the [facility] Emergency Department, a couple of weeks ago, for similar complaints. Pt reports she has weakness in her legs that is chronic from spinal stenosis. Was walking to the restroom this morning and fell hitting her right elbow. Reports she has had a laceration to right elbow from a previous fall that has not healed so it busted back open. Old records reviewed, indicating pt had sutures placed on 09/26/19, then had one suture to reapproximate the wound after dehiscence on 10/07/19. Suture noted to wound now, but no longer tied. Bleeding controlled. Hematoma noted below wound with point tenderness. Full ROM of all other extremities in all joints with no pain. No pain with ROM of right wrist or shoulder. Reports some tenderness upon palpation of right shoulder. . Historical: - Allergies: 08:15 No Known Allergies; rb1 - Home Meds: 08:15 benazepril 40 mg Oral tab 1 tab once daily [Active]; duloxetine Oral [Active]; rb1 gabapentin 300 mg Oral cap 1 cap morning [Active]; Hydrochlorothiazide Oral [Active]; hydrocodone-acetaminophen 5-325 mg Oral tab 1 tab every 12 hours [Active]; lansoprazole 30 mg Oral cpDR 1 cap once daily [Active]; Myrbetriq Oral [Active]; pravastatin 20 mg Oral tab 1 tab once daily [Active]; - PMHx: 08:15 Arthritis; Hyperlipidemia; Hypertension; Hypothyroidism; spinal stenosis; rb1 - Immunization history: Last tetanus immunization: - up to date. - Social history:: Smoking status: Patient/guardian denies using. ROS: 08:32 Constitutional: Negative for fever, chills, and weight loss, ENT: Negative for injury, kb pain, and discharge, Neck: Negative for injury, pain, and swelling, Cardiovascular: Negative for chest pain, palpitations, and edema, Respiratory: Negative for shortness of breath, cough, wheezing, and pleuritic chest pain, Abdomen/GI: Negative for abdominal pain, nausea, vomiting, diarrhea, and constipation, Back: Negative for injury and pain, Neuro: Negative for headache, weakness, numbness, tingling, and seizure. 08:32 MS/extremity: Positive for laceration, pain, swelling, tenderness, of the right elbow. 08:39 MS/extremity: Positive for pain, tenderness, of the anterior aspect of right shoulder. kb Exam: 08:39 Constitutional: This is a well developed, well nourished patient who is awake, alert, kb and in no acute distress. Head/Face: Normocephalic, atraumatic. Neck: Trachea midline, no thyromegaly or masses palpated, and no cervical lymphadenopathy. Supple, full range of motion without nuchal rigidity, or vertebral point tenderness. No Meningismus. Chest/axilla: Normal chest wall appearance and motion. Nontender with no deformity. No lesions are appreciated. Cardiovascular: Regular rate and rhythm with a normal S1 and S2. No gallops, murmurs, or rubs. Normal PMI, no JVD. No pulse deficits. Respiratory: Lungs have equal breath sounds bilaterally, clear to auscultation and percussion. No rales, rhonchi or wheezes noted. No increased work of breathing, no retractions or nasal flaring. Abdomen/GI: Soft, non-tender, with normal bowel sounds. No distension or tympany. No guarding or rebound. No evidence of tenderness throughout. Neuro: Awake and alert, GCS 15, oriented to person, place, time, and situation. Cranial nerves II-XII grossly intact. Motor strength 5/5 in all extremities. Sensory grossly intact. Cerebellar exam normal. Normal gait. 08:39 Musculoskeletal/extremity: Extremities: grossly normal except: noted in the anterior aspect of right shoulder: pain, tenderness, noted in the right elbow: laceration, pain, swelling, tenderness, ROM: limited active range of motion due to pain, in the right elbow, Circulation is intact in all extremities. Sensation intact. Vital Signs: 08:15 BP 132 / 66; Pulse 80; Resp 19; Temp 99.2(O); Pulse Ox 96% on R/A; Weight 139.71 kg rb1 (R); Height 5 ft. 8 in. (172.72 cm); Pain 7/10; 09:15 BP 146 / 73; Pulse 83; Resp 18; Pulse Ox 97% on R/A; rb1 10:15 BP 128 / 62; Pulse 84; Resp 18; Pulse Ox 97% on R/A; rb1 08:15 Body Mass Index 46.83 (139.71 kg, 172.72 cm) rb1 MDM: 08:24 Patient medically screened. kb 08:39 Data reviewed: vital signs, nurses notes. Data reviewed: old medical records, noted in kb HPI. Data interpreted: Pulse oximetry: on room air is 96 %. Interpretation: normal. 09:37 Counseling: I had a detailed discussion with the patient and/or guardian regarding: the kb historical points, exam findings, and any diagnostic results supporting the discharge/admit diagnosis, radiology results, the need for outpatient follow up, a family practitioner, to return to the emergency department if symptoms worsen or persist or if there are any questions or concerns that arise at home. 09:42 ED course: Laceration cleaned with hibiclense, benzoine applied around wound and kb steri-strips placed to approximate the wound. Pt educated to keep wound clean and protected. Sutures not placed due to length of time that wound has been open. . 10/17 08:25 Order name: Shoulder Right (2 View) XRAY; Complete Time: 10:00 kb 10/17 08:25 Order name: Elbow Right 3 View XRAY; Complete Time: 10:00 kb 10/17 08:25 Order name: Wound Care; Complete Time: 09:54 kb Administered Medications: No medications were administered Disposition: 13:23 Co-signature as Attending Physician, Jovanni Lucas MD I agree with the assessment and kdr plan of care. Disposition: 10/18/19 09:45 Discharged to Home. Impression: Fall on same level from slipping, tripping and stumbling, Laceration without foreign body of right elbow. - Condition is Stable. - Discharge Instructions: Nonsutured Laceration Care, Fall Prevention in the Home, [id number]. - Medication Reconciliation Form, Thank You Letter, Antibiotic Education, Prescription Opioid Use form. - Follow up: Private Physician; When: 2 - 3 days; Reason: Recheck today's complaints, Continuance of care, Re-evaluation by your physician. Follow up: Emergency Department; When: As needed; Reason: Worsening of condition. Signatures: Dispatcher [employer] EDMS Peggy Zuñiga, EFREN-Anthony TORRESP-Jovanni Mendieta MD MD kdr Nara Lamb, RN RN rb1 Corrections: (The following items were deleted from the chart) 10:38 09:45 10/18/2019 09:45 Discharged to Home. Impression: Fall on same level from rb1 slipping, tripping and stumbling; Laceration without foreign body of right elbow. Condition is Stable. Forms are Medication Reconciliation Form, Thank You Letter, Antibiotic Education, Prescription Opioid Use. Follow up: Private Physician; When: 2 - 3 days; Reason: Recheck today's complaints, Continuance of care, Re-evaluation by your physician. Follow up: Emergency Department; When: As needed; Reason: Worsening of condition. kb
--- NOTE | 2019-10-18 09:49 | RAD REPORT ---
EXAM DESCRIPTION: Shoulder Right 2 View - 10/18/2019 8:57 am CLINICAL HISTORY: PAIN, fall, right shoulder pain COMPARISON: Chest Single View dated 11/18/2016; Chest Single View dated 10/26/2016 TECHNIQUE: Internal and external rotation views of the right shoulder were obtained. FINDINGS: No fracture or dislocation of the proximal humerus seen. On the internal rotation view the re is a curvilinear calcification along the origin could be a joint or tendon calcification. An acute bone injury is not suspected. Acromial humeral joint space is normal. No AC joint separation suspect ed. There is degenerative change at the AC joint. Small bone density along the superior margin of the clavicle at the AC joint could be a small bone injury or joint capsule calcification. Significant A C joint injury is not suspected. No pathologic bone process. IMPRESSION: As detailed above, degenerative changes at the joint are present. An acute fracture is n ot suspected and no dislocation.
--- NOTE | 2019-10-18 09:51 | RAD REPORT ---
EXAM DESCRIPTION: RAD - Elbow Right 3 View - 10/18/2019 8:57 am CLINICAL HISTORY: PAIN, fall, elbow pain COMPARISON: No comparisons FINDINGS: No fracture is identified and there is no dislocation. No periosteal reaction or pathologi c bone changes seen. Calcifications are seen in the soft tissues proximal forearm possibly small vasc ular calcifications. Foreign body is unlikely. Patient has prominent soft tissues along the posterior aspect of the elbow joint and proximal ulna. T here are questionable air densities present. No history was detailed regarding the soft tissue wound. Extension into the capsule is not suspected. Correlation is needed with any posterior elbow soft tis andreas wound. There is no foreign body seen. IMPRESSION: No fracture or dislocation. No acute bone or joint finding seen. Possible posterior extracapsular soft tissue injury. This needs correlation with exam findings. No fo reign body.
[2019-10-18 10:42] VITALS: BP 146/73; O2SAT 97
== END 2019-10-18 10:38 | disposition home or self-care (01) ==
LOC: ER 08:16
DX: S51.011A Laceration without foreign body of right elbow, initial encounter (principal); W01.0XXA Fall on same level from slipping, tripping and stumbling without subsequent striking against object, initial encounter; Y93.9 Activity, unspecified; Y92.9 Unspecified place or not applicable; I10 Essential (primary) hypertension; E03.9 Hypothyroidism, unspecified; E78.5 Hyperlipidemia, unspecified
CPT/HCPCS: 99284

== ENCOUNTER 2020-01-01 14:01 | Emergency (ER) | payer OTHER ==
--- OUTSIDE RECORDS SUMMARY | 2020-01-01 14:19 | XMS REPORT | Clinical Summary ---
:1940 Author Organization [facility] Address [address] [place] [address] Care Team Providers Name Role Phone Asked, Pcp Primary Care Provider Unavailable Allergies Not on File Medications Not on file Active Problems Not on file Social History Tobacco Use Types Packs/Day Years Used Date Never Assessed Sex Assigned at Date Recorded Not on file Job Start Date Occupation Industry Not on file Not on file Not on file Travel History Travel Start Travel End No recent travel history available. 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
--- OUTSIDE RECORDS SUMMARY | 2020-01-01 14:19 | XMS REPORT | Continuity of Care Document ---
:1940 Author Organization [employer] [facility] Care Team Providers Name Role Phone [employer] [facility] Unavailable Un available Problems Problem Status Onset Classification Date Comments Sourc e Date Reported Hyperlipidemia Active Problem 10/17/2019 Misc her (disorder) Neuro Hypertensive Active Problem 10/17/2019 Mische r disorder, systemic N euro arterial (disorder) Hypothyroidism Active Problem 10/17/2019 Misc her (disorder) Neuro Lumbar Active Problem 10/17/2019 [facility] radiculopathy Neuro (disorder) Morbid obesity Active Problem 10/17/2019 Misc her (disorder) Neuro Muscle pain Active Problem 10/17/2019 [facility] (finding) Neuro Peripheral nerve Active Problem 10/17/2019 Mi yuri disease (disorder) N euro Localized edema Active Problem 10/17/2019 Mis eron (finding) Neuro Thiamin deficiency Active Problem 10/17/2019 Mischer (disorder) Neuro Medications Medication Details Route Status Patient Ordering Order Source Instructions Provider Date thiamine 100 mg 100 mg = 1 Active Misch er oral tablet tab, PO, 019 Neuro Daily, X 60 day, # 60 tab, 2 Refill(s), Pharmacy: [id number] duloxetine 30 MG 30 mg = 1 Active Misch er Enteric Coated cap, PO, 019 Neuro Capsule Daily, # [Cymbalta] 30 cap, 3 Refill(s), Pharmacy: [id number] duloxetine 20 MG 20 mg = 1 Active Misch er Enteric Coated cap, PO, 019 Neuro Capsule Daily, # [Cymbalta] 30 cap, 3 Refill(s), Pharmacy: [id number] tramadol 50 mg = 1 Active Mischer hydrochloride 50 tab, PO, 019 Neuro MG Oral Tablet TID, 0 Refill(s) Allergies, Adverse Reactions, Alerts Substance Category Reaction Severity Reaction Status Date Comments S ource type Reported No Known Assertion Drug Misch er Medication allergy Neuro Allergies Immunizations No Data Provided for This Section Results No Data Provided for This Section Pathology Reports No Data Provided for This Section Diagnostic Reports No Data Provided for This Section Consultation Notes No Data Provided for This Section Discharge Summaries No Data Provided for This Section History and Physicals No Data Provided for This Section Vital Signs Vital Sign Value Date Comments Source Systolic (mm Hg) 125 06/18/2019 [facility]any ro Diastolic (mm Hg) 75 06/18/2019 [facility] Heart Rate 90 06/18/2019 [facility] Respitory Rate 16 06/18/2019 [facility] Height 172.72 cm 06/18/2019 [facility] Weight 145.455 06/18/2019 [facility] BMI Calculated 48.76 06/18/2019 [facility] Systolic (mm Hg) 150 04/23/2019 [facility]any ro Diastolic (mm Hg) 87 04/23/2019 [facility] Heart Rate 79 04/23/2019 [facility] Respitory Rate 16 04/23/2019 [facility] Height 172.72 cm 04/23/2019 [facility] Weight 145.455 04/23/2019 [facility] BMI Calculated 48.76 04/23/2019 [facility] Weight 145.455 01/13/2019 [facility] BMI Calculated 48.76 01/13/2019 [facility] Height 172.72 cm 01/13/2019 [facility] Heart Rate 80 01/13/2019 [facility] Respitory Rate 16 01/13/2019 [facility] Systolic (mm Hg) 148 01/13/2019 [facility]any ro Diastolic (mm Hg) 83 01/13/2019 [facility] BMI Calculated 48.76 11/11/2018 [facility] Heart Rate 91 11/11/2018 [facility] Respitory Rate 16 11/11/2018 [facility] Weight 145.455 11/11/2018 [facility] Height 172.72 cm 11/11/2018 [facility] Systolic (mm Hg) 117 11/11/2018 [facility] Diastolic (mm Hg) 68 11/11/2018 [facility] Encounters Location Location Encounter Encounter Reason Attending ADM [place] Stat us Source Details Type Number For Provider Date Date Visit Outpatient [id number] CAREY 09/10 Active [facility] [id number] CAREY 10/14 Active [facility] [id number] Carey 11/11 Active [facility] [place] [facility] [id number] Carey 11/11 11/12 [facility] [id number] [facility]13 [facility] [place] [facility] [id number] Carey 01/13 01/14 [facility] [id number] Carey 04/23 [facility] [id number] Carey 04/23 04/24 [facility] [id number] Carey 06/18 [facility] [place] [facility] [id number] Carey 06/18 Active [facility] [place] [facility] [id number] Carey 06/18 06/18 [facility] [id number] Carey 06/18 06/19 [facility] [id number] Carey 10/14 Active [facility] [place] [facility] [id number] Carey 10/14 10/14 [facility] Procedures Procedure Code Date Perfomer Comments Source Knee replacement [id number] [facility] Neuro Assessment and Plan No Data Provided for This Section Plan of Care No Data Provided for This Section Social History Social History Date Source Social History TypeResponse 09/10/2018 [facility] Neur o Employment/School 1 Smoking Status Unknown if ever smoked; 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 Reinier Ambrose-PCP Family History No Data Provided for This Section Advance Directives No Data Provided for This Section Functional Status No Data Provided for This Section
--- OUTSIDE RECORDS SUMMARY | 2020-01-01 14:20 | XMS REPORT | Summary of Care ---
:1940 Author Organization [facility] Address [address] [place] [address]- phone Encounter HQ Encntr_alijoel(FIN) [id number] Date(s): 10/15/19 - 10/15/19 [facility] [address] [place] [address]- [phone] Attending Physician: Tho Garcia MD Referring Physician: Tho Garcia MD Vital Signs No data available for this section Problem List Condition Effective Dates Status Health Status Informant Hyperlipidemia(Confirmed) Active Hypertension(Confirmed) Active Hypothyroidism(Confirmed) Active Localized edema Active Lumbar radiculopathy(Confirmed) Active Morbid obesity(Confirmed) Active Myalgia(Confirmed) Active Peripheral neuropathy(Confirmed) Active Vitamin B1 deficiency(Confirmed) Active Allergies, Adverse Reactions, Alerts No Known Medication Allergies Medications No data available for this section Results No data available for this section Immunizations No data available for this section Procedures Procedure Date Related Diagnosis Body Site Status Knee replacement Completed Social History Social History Type Response Employment/School 1 Smoking Status Unknown if ever smoked; Expo sure to Tobacco Smoke Unable to obtain; Cigarette Smoking Last 365 Days Unable to obtain; Reg Smoking Cessation Counseling No entered on: 06/18/19 1Can release medical information to - Dr. Reinier Ambrose-PCP Assessment and Plan No data available for this section
--- OUTSIDE RECORDS SUMMARY | 2020-01-01 14:21 | XMS REPORT ---
:1940 Author Organization [employer] Care Team Providers Name Role Phone Reinier Maurice Provider Role Unavailable Allergies No Known Allergies Problems Problem Type Condition Code Onset Dates Condition Statu s Problem Rheumatoid arthritis M06.9 Active Problem Hyperlipidemia E78.5 Active Problem Hypertension I10 Active Problem Iron deficiency anemia, unspecified D50.9 Active iron deficiency anemia type Problem Stasis dermatitis I83.10 Active Problem Peripheral polyneuropathy G62.9 Ac tive Problem Pain in left ankle and joints of M25.572 Active left foot Problem Pain in right foot M79.671 Active Problem Anemia, unspecified type D64.9 Act carrie Problem Urinary incontinence, unspecified R32 Active type Problem 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 Problem Functional incontinence R39.81 Acti ve Problem Balance problem R26.89 Active Problem Bilateral lower extremity edema R60.0 Active Problem Gastro-esophageal reflux disease K21.9 Active without esophagitis Problem Degenerative joint disease M19.90 A ctive Problem Restless legs syndrome G25.81 Activ e Problem Constipation K59.00 Active Problem Prediabetes R73.09 Active Problem Hypokalemia E87.6 Active Problem Chronic kidney disease N18.9 Activ e Problem Osteoarthritis of multiple 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
--- OUTSIDE RECORDS SUMMARY | 2020-01-01 14:21 | XMS REPORT | Continuity of Care Document ---
:1940 Author Organization [facility] t Address [address] [place] [address] Care Team Providers Name Role Phone Asked, Pcp Primary Care Physician Unavailable Edgar Garcia Attending Clinician Problems Condition Condition Condition Status Onset Resolution Last Treating Co mments Source Name Details Category Date Date Treatment Clinician Date Status Status Problem Active [facility] post total post total Maisha kes - right knee right knee Me moria replacemen replacemen l t [facility] Bilateral Bilateral Problem Active [facility] - extremity extremity Jai annabelle edema edema l [facility] Gastro-eso Gastro-eso Problem Active [facility] phageal phageal [facility] - reflux reflux Memoria disease disease l without without Outpati esophagiti esophagiti en t s s Clinics Gout Gout Problem Active [facility] Hypokalemi Hypokalemi Problem Active [facility] Constipati Constipati Problem Active [facility] on [facility] Hyperlipid Hyperlipid Problem Active [facility] emia emia [facility] Hypertensi Hypertensi Problem Active [facility] Rheumatoid Rheumatoid Problem Active [facility] arthritis arthritis Luke s - Memoria l [facility] Chronic Chronic Problem Active [facility] kidney kidney [facility] - disease disease [facility]ics Prediabete Prediabete Problem Active [facility]ics Hypothyroi Hypothyroi Problem Active [facility] dism dism [facility]ics Osteoarthr Osteoarthr Problem Active [facility] itis of itis of [facility] - multiple multiple Memori a joints joints l Outpati ent Clinics Pain in Pain in Problem Active [facility] right foot right foot Maisha kes - [facility] ent Clinics 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 [facility] - disease disease [facility] Restless Restless Problem Active [facility] legs legs [facility] - syndrome syndrome Mem[facility] a l Outpati ent Clinics Pain in Pain in Problem Active [facility] left ankle left ankle Maisha kes - and joints and joints Me moria of left of left l foot foot Outpati ent Clinics Stasis Stasis Problem Active [facility] dermatitis dermatitis Maisha kes - [facility]oria l Outpat[facility] ent Clinics Urinary Urinary Problem Active [facility] incontinen incontinen Maisha kes - ce, ce, Memoria unspecifie unspecifie l d type d type Outpati ent Clinics Balance Balance Problem Active [facility] problem problem [facility]ics Functional Functional Problem Active [facility] incontinen incontinen Maisha kes - ce ce [facility] Anemia, Anemia, Problem Active [facility] unspecifie unspecifie Maisha kes - d type d type Memoria l Outpati ent Clinics Iron Iron Problem Active [facility] deficiency deficiency Maisha kes - anemia, anemia, Memoria unspecifie unspecifie l d iron d iron Outpati deficiency deficiency en t anemia anemia Clinics type type Peripheral Peripheral Problem Active [facility] polyneurop polyneurop Maisha kes - athy athy [facility]oria l [facility] Hyperlipid Problem Active 2019-10-17 M emoria emia 21:49:45 l (disorder) Andrea n Hyperlipid emia (disorder) Active Problem 10/17/2019 [facility] Hypertensi Problem Active 2019-10-17 M emoria ve 21:49:45 l disorder, [place] systemic Hypertensi arterial ve (disorder) disorder, systemic arterial (disorder) Active Problem 10/17/2019 [facility] Hypothyroi Problem Active 2019-10-17 M emoria dism 21:49:45 l (disorder) Andrea n Hypothyroi dism (disorder) Active Problem 10/17/2019 [facility] Lumbar Problem Active 2019-10-17 Memor ia radiculopa 21:49:45 l thy Lumbar [place] (disorder) radiculopa thy (disorder) Active Problem 10/17/2019 [facility] Morbid Problem Active 2019-10-17 Memor ia obesity 21:49:45 l (disorder) Morbid Herm carolyn obesity (disorder) Active Problem 10/17/2019 [facility] Muscle Problem Active 2019-10-17 Memor ia pain 21:49:45 l (finding) Muscle Lizzette nn pain (finding) Active Problem 10/17/2019 [facility] Peripheral Problem Active 2019-10-17 M emoria nerve 21:49:45 l disease Marlon (disorder) Peripheral nerve disease (disorder) Active Problem 10/17/2019 [facility] Localized Problem Active 2019-10-17 Me moria edema 21:49:45 l (finding) Marlon Localized edema (finding) Active Problem 10/17/2019 [facility] Thiamin Problem Active 2019-10-17 Jai annabelle deficiency 21:49:45 l (disorder) Thiamin Her ohara deficiency (disorder) Active Problem 10/17/2019 [facility] Allergies, Adverse Reactions, Alerts Allergy Allergy Status Severity Reaction(s) Onset Inactive Treating Comm ents Source Name Type Date Date Clinician No Known No Known Active Memori a Medicati Medicati l on on Marlon Allergie Allergie s s Social History Social Habit Start Date Stop Date Quantity Comments Source Sex [facility] [place] [facility] 2018-09-10 2018-09-10 [facility] Sara reynolds 17:28:20 17:28:20 Medications Ordered Filled Start Stop Current Ordering Indication Dosage Frequency Signature Comments Components Source Medication Medication Date Date Medication? Clinician (SIG) Name Name Slow Slow Yes Maurice [address] [facility] Release Release 4-23 [place] [facility] - Iron Iron 00:00: Memoria 00 l Outpati ent Clinics thiamine 2018-07 Yes 100 mg = 1 Mem oria 100 mg oral 0-10 tab, PO, l tablet 13:09: Daily, X Marlon 00 60 day, # 60 tab, 2 Refill(s), Pharmacy: [id number] duloxetine 2018- Yes 30 mg = 1 Me moria 30 MG 6-18 cap, PO, l Enteric 19:19: Daily, # Andrea n Coated 00 30 cap, 3 Capsule Refill(s), [Cymbalta] Pharmacy: [id number] duloxetine 2018- Yes 20 mg = 1 Me moria 20 MG 4-16 cap, PO, l Enteric 19:41: Daily, # Andrea n Coated 00 30 cap, 3 Capsule Refill(s), [Cymbalta] Pharmacy: [id number] tramadol 2018- Yes 50 mg = 1 Jai annabelle hydrochlori 4-16 tab, PO, l de 50 MG 19:40: TID, 0 [place] Oral Tablet 00 Refill(s) Gabapentin Gabapentin Yes Maurice [address] [facility] [place] [facility] MiraLax MiraLax Yes Maurice [address] [facility] [place] [facility] Tramadol Tramadol Yes Maurice [address] HCl HCl [place] as needed [facility] Plaquenil Plaquenil Yes Maurice [address] [facility] [place] with food [facility] - or milk [facility]oria l Outpati ent Clinics Tricor Tricor Yes Maurice TAKE [address] [facility] [place] TABLET [facility] - DAILY WITH Memoria FOOD l Outpati ent Clinics Benazepril Benazepril Yes Maurice [address] [facility] HCl HCl [place] [facility] Hydrocodone Hydrocodone Yes Maurice [address] [facility] [address] -Acetaminop -Acetaminop [place] as needed [facility] - hen hen [facility] l [facility]i ent [facility] Pravastatin Pravastatin Yes Maurice TAKE [address] [facility] Sodium Sodium [place] TABLET [facility] - ONCE DAILY [facility] l Outpati ent Clinics Allopurinol Allopurinol Yes Maurice [address] [facility] [place] [facility] Lasix Lasix Yes Maurice [address] [facility] [place] [facility]ics Linzess Linzess Yes Maurice [address] [place] [facility]ics Fish Oil Fish Oil Yes Maurice not [facility] [place] defined [facility] Neurontin Neurontin Yes Maurice [address] [facility] [place] [facility] Klor-Con 10 Klor-Con 10 Yes Maurice [address] [facility] [place] with food [facility] Duloxetine Duloxetine Yes Maurice [address] [facility] HCl HCl [place] [facility] Levothyroxi Levothyroxi Yes Maurice [address] [facility] ne Sodium ne Sodium [place] on an Martin es - empty Memoria stomach in l the Outpati morning ent Clinics Prevacid Prevacid Yes Maurice [address] [facility] [place] [facility] Cash Cash Yes Maurice not [facility] [place] defined [facility] Align Align Yes Maurice not [facility] [place] defined [facility]ics Voltaren Volterneston Yes Maurice apply to [facility] [place] affected [facility] - area [facility] l Out[facility]i ent Clinics Centrum Centrum Yes Maurice not [facility] Silver Silver [place] defined [facility] B1 Natural B1 Natural Yes Maurice as [facility] [place] directed [facility] Prevacid Prevacid Yes Maurice TAKE [address] [facility] [place] CAPSULE [facility] - ONCE DAILY [facility]oria l Outpati ent Clinics Benazepril Benazepril Yes Maurice TAKE [address] [facility] HCl HCl [place] TABLET [facility] - ONCE DAILY [facility] l Outpati ent Clinics Immunizations Ordered Filled Immunization Date Status Comments [facility] e Immunization Name Name FluAD FluAD 2019-04-[address] [facility] - 00:[facility]00 [facility] Out[facility] FluAD FluAD 2019-04-[address] [facility] 00:[facility]00 [facility] Vital Signs Vital Name Observation Time Observation Value Comments Source Systolic (mm Hg) 2019-06-18 21:30:00 Jai garcia [place] Diastolic (mm Hg) 2019-06-18 21:30:00 [facility] maribelal [place] Heart Rate 2019-06-18 21:30:00 [facility] Respitory Rate 2019-06-18 21:30:00 Sandra Gray Height 2019-06-18 21:30:00 172.72 cm [facility] Weight 2019-06-18 21:30:00 [facility] BMI Calculated 2019-06-18 21:30:00 Sandra Houghann Systolic (mm Hg) 2019-04-23 15:43:00 Jaieric garcia [place] Diastolic (mm Hg) 2019-04-23 15:43:00 [facility] orial [place] Heart Rate 2019-04-23 15:43:00 [facility] Respitory Rate 2019-04-23 15:43:00 Memori al [place] Height 2019-04-23 15:43:00 172.72 cm [facility] [place] Weight 2019-04-23 15:43:00 [facility] [place] BMI Calculated 2019-04-23 15:43:00 [facility] [place] Weight 2019-01-13 18:46:00 [facility] [place] BMI Calculated 2019-01-13 18:46:00 Mem[facility] al [place] Height 2019-01-13 18:46:00 172.72 cm [facility] [place] Heart Rate 2019-01-13 18:46:00 [facility] [place] Respitory Rate 2019-01-13 18:46:00 Mem[facility] al [place] Systolic (mm Hg) 2019-01-13 18:46:00 Jai rial [place] Diastolic (mm Hg) 2019-01-13 18:46:00 Mem orial [place] BMI Calculated 2018-11-11 19:15:00 Memori al [place] Heart Rate 2018-11-11 19:15:00 [facility] [place] Respitory Rate 2018-11-11 19:15:00 Memori al [place] Weight 2018-11-11 19:15:00 [facility] [place] Height 2018-11-11 19:15:00 172.72 cm [facility] [place] Systolic (mm Hg) 2018-11-11 19:15:00 Jai rial [place] Diastolic (mm Hg) 2018-11-11 19:15:00 Mem orial [place] Procedures Procedure Date / Time Performed Performing Clinician [facility] e Knee replacement Ashleigh Chaan n Plan of Care Planned Activity Planned Date Details Comments Source Future Scheduled 2020-02-27 INFLUENZA VACCINE [place] [employer] [facility] 00:00:00 [code = INFLUENZA VACCINE] Future Scheduled 2007 65+ PNEUMOCOCCAL [place] [employer] [facility] 00:00:00 VACCINE (1 of 2 - PCV13) [code = 65+ PNEUMOCOCCAL VACCINE (1 of 2 - PCV13)] Future Scheduled 1992 SHINGLES VACCINES (#1) [place] [facility] [facility] 00:00:00 [code = SHINGLES VACCINES (#1)] Encounters Start End Encounter Admission Attending Care Care Encounter Source Date/Time Date/Time Type Type Clinicians Facility Department ID 2019-12-14 2019-12-14 [facility] [id number] [address] 09:21:00 09:21:00 [facility] Medicine Outpati ent Clinics 2019-11-19 2019-11-19 [facility] [id number] [address] 09:45:00 09:45:00 [place] [employer] [place] - Drive [facility] Medicine Outpati ent Clinics 2019-11-18 2019-11-18 [facility] [id number] [address] 10:34:00 10:34:00 t [place] mention [employer]Decalog s - Drive [facility] Medicine Outpati ent Clinics 2019-10-19 2019-10-19 [facility] [id number] 11:41:00 11:41:00 [place] [employer] - Drive [facility] Medicine Outpati ent Clinics 2019-10-15 2019-10-15 [id number] 13:30:00 13:30:00 Tho Hernández 2019-09-28 2019-09-28 [facility] [id number] [address] 15:31:00 15:31:00 [place] - Drive [facility] Medicine Outpati ent Clinics 2019-07-28 2019-07-28 [facility] [id number] 10:00:00 10:00:00 t Specialty/U Maisha kes - Specialty rology [facility] a /Urology Clinic l Clinic Outpati ent Clinics 2019-07-21 2019-07-21 [facility] [id number] 10:00:00 10:00:00 [place] - Drive [facility] Medicine Outpati ent Clinics 2019-07-14 2019-07-14 [facility] [id number] 09:34:00 09:34:00 [place] - Drive [facility] Medicine Outpati ent Clinics 2019-07-03 2019-07-03 [facility] [id number] 11:52:00 11:52:00 [place] - Drive [facility] Medicine Outpati ent Clinics 2019-06-18 2019-06-18 Outpatient KIERAN Garcia MISCH [id number] 14:45:00 23:59:59 Tho 08 Edgar 2019-06-18 2019-06-18 Outpatient Radha [facility] [id number] 11:15:00 11:15:00 Tho 07 Edgar 2019-06-08 2019-06-08 [facility] [id number] 15:57:00 15:57:[address] Luke [place] - Drive [facility] Medicine Outpati ent Clinics 2019-05-28 2019-05-28 [facility] [id number] 10:15:00 10:15:[address] Luke s - Drive [facility] Medicine Outpati ent Clinics 2019-05-20 2019-05-20 [facility] [id number] 09:33:00 09:33:[address] Luke s - Drive [facility] Medicine Outpati ent Clinics 2019-04-27 2019-04-27 [facility] [id number] [address] 14:22:00 14:22:00 t Specialty/U Maisha kes - Specialty rology [facility] Outpati ent Clinics 2019-04-23 2019-04-23 Outpatient Radha [facility] [id number] 10:30:00 23:59:59 Tho Maranda Edgar 2019-04-17 2019-04-17 [facility] [id number] 14:00:00 14:00:00 t Specialty/U Maisha kes - Specialty rology [facility] Clinic Outpati ent Clinics 2019-04-17 2019-04-17 [facility] [id number] 10:33:00 10:33:[address] Luke s - Drive [facility] Medicine Outpati ent Clinics 2019-02-24 2019-02-24 [facility] [id number] 09:30:00 09:30:[address] Luke s - Drive [facility] Medicine Outpati ent Clinics 2019-01-20 2019-01-20 [facility] [id number] 10:59:00 10:59:00 t Specialty/U Maisha kes - Specialty rology Memori a /Urology Clinic l Clinic Outpati ent Clinics 2019-01-19 2019-01-19 [facility] [id number] 09:29:00 09:29:00 t Specialty/U Maisha kes - Specialty rology Memori a /Urology Clinic l Clinic Outpati ent Clinics 2019-01-15 2019-01-15 [facility] [id number] 10:02:00 10:02:00 t Specialty/U Maisha kes - Specialty rology Memori a /Urology Clinic l Clinic Outpati ent Clinics 2019-01-13 2019-01-13 [id number] 13:30:00 23:59:59 Thokailey Hernández 2019-01-06 2019-01-06 [facility] [id number] 13:15:00 13:15:00 t Specialty/U Maisha kes - Specialty rology Mem[facility] a /Urology Clinic l Clinic Outpati ent Clinics 2018-12-09 2018-12-09 [facility] [id number] 13:00:00 13:00:00 t Specialty/U Maisha kes - Specialty rology Memori a /Urology Clinic l Clinic Outpati ent Clinics 2018-11-25 2018-11-25 [facility] [id number] 09:15:00 09:15:00 [place] - Drive [facility] Outpati ent Clinics 2018-11-11 2018-11-11 [id number] 14:15:00 23:59:59 Thokailey Hernández 2018-08-21 2018-08-21 [facility] [id number] 10:30:00 10:30:00 t [place] mention [employer] s - Drive [facility] Medicine Outpati ent Clinics 2018-08-06 2018-08-06 [facility] [id number] 10:52:00 10:52:00 [place] - Drive [facility] Medicine Outpati ent Clinics 2018-08-04 2018-08-04 [facility] [id number] 09:26:00 09:26:00 [employer] [facility] Outpati ent Clinics 2018-07-31 2018-07-31 [facility] [id number] 13:30:00 13:30:00 [employer] [facility] Outpati ent Clinics 2018-02-19 2018-02-19 [facility] [id number] 13:45:00 13:45:00 [employer] [facility] Outpati ent Clinics 2017-11-05 2017-11-05 [facility] [id number] 09:30:00 09:30:00 [employer] [facility] Results This patient has no known results.
--- OUTSIDE RECORDS SUMMARY | 2020-01-01 14:22 | XMS REPORT ---
:1940 Author Organization [employer] Care Team Providers Name Role Phone Reinier Maurice Provider Role Unavailable Allergies, Adverse Reactions, Alerts Substance Reaction Event Type N.K.D.A. Info Not Available Non Drug Allergy Problems Problem Type Condition Code Onset Dates Condition Statu s Assessment Urinary incontinence, unspecified R32 Active type Assessment Bilateral lower extremity edema R60.0 Active Assessment Hyperlipidemia E78.5 Active Assessment Rheumatoid arthritis M06.9 Active Assessment Hypertension I10 Active Assessment Radiculopathy, lumbar region M54.16 Active Assessment Spinal stenosis, lumbar region M48.061 Active without neurogenic claudication Assessment Iron deficiency anemia, unspecified D50.9 Active iron deficiency anemia type Assessment Hypothyroidism E03.9 Active Problem Chronic kidney disease N18.9 Activ e Problem Hypothyroidism E03.9 Active Problem Osteoarthritis of multiple joints M15.9 Active Problem Rheumatoid arthritis M06.9 Active Problem Hyperlipidemia E78.5 Active Problem Hypertension I10 Active Problem Iron deficiency anemia, unspecified D50.9 Active iron deficiency anemia type Problem Peripheral polyneuropathy G62.9 Ac tive Problem Stasis dermatitis I83.10 Active Problem Pain in left ankle and joints of M25.572 Active left foot Assessment Vitamin B1 deficiency E51.9 Active Problem Anemia, unspecified type D64.9 Act carrie Problem Pain in right foot M79.671 Active Assessment Peripheral polyneuropathy G62.9 Ac tive Problem Urinary incontinence, unspecified R32 Active type Problem 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 Problem Functional incontinence R39.81 Acti ve Problem Balance problem R26.89 Active Assessment Gout M10.9 Active Problem Bilateral lower extremity edema R60.0 Active Assessment Encounter for wheelchair assessment Z76.89 Active Problem Gastro-esophageal reflux disease K21.9 Active without esophagitis Assessment History of fall within past 90 days Z91.81 Active Problem Degenerative joint disease M19.90 A ctive Assessment Gastro-esophageal reflux disease K21.9 Active without esophagitis Problem Restless legs syndrome G25.81 Activ e Assessment Physical debility R53.81 Active Problem Constipation K59.00 Active Assessment 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 Problem Prediabetes R73.09 Active Problem Hypokalemia E87.6 Active Problem Gout M10.9 Active Medications Medication Code Code Instructions Start End Status Dosage System Date Date Prevacid [facility] 57619457082 30 MG Active TAKE 1 CAPSULE ONCE DAILY Allopurinol [facility] 88057144432 100 MG Orally Active 2 tablet Once a day Hydrocodone-Acet [facility] 94418496285 7.5-325 MG Active 1 tablet aminophen Orally every 6 as need ed hrs Plaquenil [facility] 58874839354 200 MG Orally Active 1 ta blet Twice a day with food or milk Levothyroxine [facility] 92297942781 112 MCG Orally Active 1 tablet Sodium Once a day on an empty stomach in the morning Tricor [facility] 84730854535 145 MG Orally Active 1 tabl et Once a day with food Align [facility] 71396498767 4 MG Orally Active not defined Tramadol HCl [facility] 94524159563 50 MG Orally Active 1 tablet every 6 hrs as needed Gabapentin [facility] 74896496956 600 MG Orally Active 1 t ablet Once a day Benazepril HCl [facility] 43613373133 40 MG Active TAKE 1 TABLET ONCE DAILY Linzess [facility] 23315694635 290 MCG Orally Active 1 cap paula Once a day Tricor [facility] 16019360686 145 MG Active TAKE 1 TABLET DAILY WITH FOOD MiraLax [facility] 04016663092 - Orally twice Active 17 gr am daily Fish Oil [facility] [address]-85 Active not defined Lasix [facility] 56668592082 40 MG Active TAKE 1 TABLET TWICE A DAY B1 Natural [facility] 05958072031 250 MG Orally Active as directed Lasix [facility] 49316668414 40 MG Orally Active 1 table t Twice a day Pravastatin [facility] 20808255403 20 MG Orally Active 1 t ablet Sodium Once a day Klor-Con 10 [facility] 88096576510 10 MEQ Orally Active 1 tablet Twice a day with food Duloxetine HCl [facility] 24069025092 30 MG Orally Active 1 capsule Once a day Prevacid [facility] 31241431183 30 MG Orally Active 1 caps ule Once a day Pravastatin [facility] 94958252535 20 MG Active TAKE 1 Sodium TABLET ONCE DAILY Voltaren [facility] 79713583566 1 % Transdermal Active yeimy ly to 4 times a day affected area Slow Release [facility] 98167093034 160 (50 Fe) MG October Active 1 tablet Iron Orally Once a 2019 Centrum Silver [facility] 71631757829 - Orally Active not defined Winston [facility] [address]-78 Active not defined Neurontin [facility] 44228021749 300 MG Orally Active 1 ca psule Once in the morning, 2 caps at bedtime Benazepril HCl [facility] 82970600773 40 MG Orally Active 1 tablet Once a day Results No Known Results Summary Purpose [employer]ClinicalWorks Submission
--- NOTE | 2020-01-01 15:33 | RAD REPORT ---
EXAM DESCRIPTION: Latha Single View01/01/2020 3:00 pm CLINICAL HISTORY: Chest pain COMPARISON: 2016 FINDINGS: The lungs appear clear of acute infiltrate. The heart is normal size IMPRESSION: No acute abnormalities displayed
[2020-01-01 16:12] LABS: Absolute Lymphocytes (CBC) 0.7 K/uL (0.7-4.9); Basophils % 1.2 % (0-1.3); Hematocrit 37.8 % (36.0-45.0); Lymphocytes % 10.4 % (15.3-44.8); MPV 10.2 fL (7.6-11.3); RBC Red Blood Cell Count 4.44 M/uL (3.86-4.86)
[2020-01-01 16:37] LABS: Potassium 3.8 mmol/L (3.5-5.1)
--- NOTE | 2020-01-01 17:23 | RAD REPORT ---
EXAM DESCRIPTION: CT - Head Brain Wo Cont - 01/01/2020 5:06 pm CLINICAL HISTORY: Head injury status post fall. Ataxia. Weakness COMPARISON: None TECHNIQUE: Computed axial tomography of the head was obtained. IV contrast was not requested. All CT scans are performed using dose optimization technique as appropriate and may include automated exposure control or mA/KV adjustment according to patient size. FINDINGS: An intracranial bleed is not seen . The ventricles are normal in caliber. No extra-axial fluid collection is noted. 12 millimeter calcification along the left frontal convexity probably a meningioma. There is no surro unding edema. Mild to moderate low-density within periventricular, deep and subcortical white matter likely ischemi c changes secondary to small vessel disease Fluid within the sinuses/ mastoids is not seen. IMPRESSION: No acute intracranial abnormality is seen. If patient's symptoms persist MRI of the bra in would be recommended.
[2020-01-01 18:01] LABS: Anisocytosis 2+; Blood Morphology Comment NOTED (NOT SEEN); Platelet Estimate ADEQ; Polychromasia SLIGHT; Urine White Blood Cell Casts OK
--- NOTE | 2020-01-01 18:07 | RAD REPORT ---
EXAM DESCRIPTION: MRI - Lumbar Spine Wo Con - 01/01/2020 5:49 pm CLINICAL HISTORY: Spinal stenosis/worsening weakness COMPARISON: 2019 TECHNIQUE: Sagittal T1, T2 and STIR weighted sequences were obtained. Axial T1 and T2 sequences were obtained through the lumbar disc levels. FINDINGS: Small right posterolateral disc herniation L1-2. Ligamentum flavum and facet hypertrophy. Thecal sac measures 7.5 millimeters mild to moderate narrowing of the right neural foramina A large left posterior-lateral disc extrusion is present L2-3 extending superiorly into the left neur al foramina. Ligamentum flavum facet hypertrophy is present. Thecal sac measures 4 millimeters Disc bulge, ligamentum flavum facet hypertrophy L3-4. Moderate narrowing of the right neural foramina . Mild narrowing of the thecal sac Disc bulge, ligamentum flavum and facet hypertrophy L4-5. Moderate narrowing the right neural foramin a. Mild narrowing of the thecal sac Mild spondylosis L5-S1 No significant abnormal signal within the bones IMPRESSION: Large left posterolateral disc extrusion L2-3 extending superiorly and into the left sadia ral foramina. This in combination with spondylosis result in marked central spinal stenosis Small right posterolateral disc herniation L2-3. This in combination with spondylosis result in mild to moderate central spinal stenosis
[2020-01-01] MEDS ORDERED: LIDOCAINE 1% MPF 30 ML VIAL ONE (18:33)
--- NOTE | 2020-01-01 19:03 | EDPHYS ---
Physician Documentation [facility] Name: Hanane Huizar Age: 79 yrs Sex: Female : 1940 Arrival Date: 01/01/2020 Time: 14:17 Bed 14 Private MD: ED Physician Boone Stoner HPI: 12/31 14:58 This 79 yrs old Female presents to ER via EMS with complaints of General rn Weakness. 14:58 Reports generalized weakness, increased lower ext weakness. Reports falls frequently, rn attributed in past to spinal stenosis, has appointment this next week for spinal injections, denies recent changes. Fell today again 3 times, EMS made 3 trips, seemed weaker to them, so brought her in for evaluation. Denies head injury or LOC, neg for chest pain/sob/abd pain/vomiting/diarrhea/cough. No oxygen at home, EMS reports oxygen in mid 80s. . Onset: The symptoms/episode began/occurred today. Severity of symptoms: At their worst the symptoms were moderate in the emergency department the symptoms are unchanged. The patient has experienced similar episodes in the past. The patient has not recently seen a physician. Historical: - Allergies: 14:32 No Known Allergies; vc - Home Meds: 14:32 Myrbetriq Oral [Active]; benazepril 40 mg Oral tab 1 tab once daily [Active]; vc duloxetine Oral [Active]; gabapentin Oral [Active]; Hydrochlorothiazide Oral [Active]; hydrocodone-acetaminophen 5-325 mg Oral tab 1 tab every 12 hours [Active]; lansoprazole 30 mg Oral cpDR 1 cap once daily [Active]; pravastatin 20 mg Oral tab 1 tab once daily [Active]; - PMHx: 14:32 spinal stenosis; Hypothyroidism; Arthritis; Hyperlipidemia; Hypertension; vc - Immunization history:: Adult Immunizations up to date, Last tetanus immunization: up to date Pneumococcal vaccine is up to date, Flu vaccine is up to date. - Social history:: Smoking status: Patient denies any tobacco usage or history of. - Family history:: not pertinent. - Hospitalizations: : No recent hospitalization is reported. ROS: 14:58 Constitutional: Negative for fever, chills, and weight loss, Eyes: Negative for injury, rn pain, redness, and discharge, Neck: Negative for injury, pain, and swelling, Cardiovascular: Negative for chest pain, palpitations, and edema, Respiratory: Negative for shortness of breath, cough, wheezing, and pleuritic chest pain, Abdomen/GI: Negative for abdominal pain, nausea, vomiting, diarrhea, and constipation, Back: Negative for injury and pain, MS/Extremity: + laceration RLE Skin: Negative for injury, rash, and discoloration, Neuro: Negative for headache, and seizure. Exam: 14:58 Constitutional: Overweight female, no acute distress Head/Face: Normocephalic, rn atraumatic. ENT: MMM Cardiovascular: Regular rate and rhythm. No pulse deficits. Respiratory: Speaking full sentences, unlabored. Abdomen/GI: soft, non-tender MS/ Extremity: Pulses equal, no cyanosis. 2cm superficial laceration RLE latera/pre-tibial region. No active bleeding. Neuro: Awake and alert, GCS 15, oriented to person, place, time, and situation. Cranial nerves II-XII grossly intact. Motor strength 3+/5 in all extremities. Decreased but present sensation LLE. Vital Signs: 14:18 BP 115 / 58; Pulse 61; Resp 16; Temp 99.0(O); Pulse Ox 94% on R/A; Weight 145.15 kg; vc Height 5 ft. 8 in. (172.72 cm); 15:00 BP 124 / 57; Pulse 80; Resp 16; Pulse Ox 99% on 2 lpm NC; vc 17:00 BP 145 / 108; Pulse 85; Resp 15; Pulse Ox 97% on R/A; vc 18:00 BP 143 / 57; Pulse 81; Resp 17; Pulse Ox 96% on 2 lpm NC; vc 19:00 BP 144 / 73; Pulse 80; Resp 16; Pulse Ox 98% on R/A; vc 20:00 BP 133 / 71; Pulse 79; Resp 17; Temp 97.9; Pulse Ox 100% ; vc 14:18 Body Mass Index 48.66 (145.15 kg, 172.72 cm) vc MDM: 14:28 Patient medically screened. rn 18:55 Differential Diagnosis disc herniation, spinal cord compression, radiculopathy. Data rn reviewed: vital signs, nurses notes, lab test result(s), radiologic studies, MRI, and as a result, I will admit patient. Counseling: I had a detailed discussion with the patient and/or guardian regarding: the historical points, exam findings, and any diagnostic results supporting the discharge/admit diagnosis, radiology results, the need to transfer to another facility, for higher level of care, [facility] does not immediately have the required specialist. ED course: MRI shows large posterior disc extrusion causing significant spinal stenosis, given worsening symptoms of weakness and bladder. . 12/31 14:31 Order name: CBC with Diff; Complete Time: 18:11 rn 12/31 14:31 Order name: Basic Metabolic Panel; Complete Time: 17:12 rn 12/31 14:34 Order name: BNP; Complete Time: 17:12 rn 12/31 18:02 Order name: CBC Smear Scan; Complete Time: 18:11 EDOH 12/31 14:31 Order name: IV Start; Complete Time: 16:25 rn 12/31 14:31 Order name: Urine Dipstick-Ancillary (obtain specimen) rn 12/31 14:31 Order name: MRI Lumbar Spine wo Con; Complete Time: 18:11 rn 12/31 14:32 Order name: XRAY Chest (1 view); Complete Time: 16:19 rn 12/31 16:19 Order name: CT Head Brain wo Cont; Complete Time: 18:11 rn Administered Medications: 18:20 Drug: Lidocaine (1 %) 20 ml Volume: 20 ml; Route: Infiltration; vc Disposition: 01/01/20 19:02 Transfer ordered to [facility]. Diagnosis are Weakness, Spinal stenosis, lumbar region, Paresthesia of skin. - Reason for transfer: Higher level of care. - Accepting physician is Dr. Pantoja. - Condition is Stable. - Problem is an ongoing problem. - Symptoms have worsened. Signatures: Dispatcher [employer] EDMS Ousmane Silva PA PA jmm Nieto, Roman, MD MD rn Calcote, Vanessa, RN RN vc Corrections: (The following items were deleted from the chart) 22:01 19:02 01/01/2020 19:02 Transfer ordered to [facility]. vc Diagnosis is Weakness; Spinal stenosis, lumbar region; Paresthesia of skin. Reason for transfer: Higher level of care. Accepting physician is Dr. Pantoja. Condition is Stable. Problem is an ongoing problem. Symptoms have worsened. rn
--- NOTE | 2020-01-01 19:03 | ER ---
Nurse's Notes [facility] Name: Hanane Huizar Age: 79 yrs Sex: Female : 1940 Arrival Date: 01/01/2020 Time: 14:17 Bed 14 Private MD: Diagnosis: Weakness;Spinal stenosis, lumbar region;Paresthesia of skin Presentation: 12/31 14:18 Chief complaint: EMS states: "Patient falls everyday, we usually get called once a day vc to every other day for lift assist. Today this was the third time we were called to pick her up off of the floor. We convinced her to come in because she is a little more weak than normal.". Coronavirus screen: Surgical mask placed on patient. Patient moved to private room, placed in contact and droplet isolation with eye protection until further assessment. Patient denies a cough. Patient denies shortness of breath or difficulty breathing. Patient denies measured and/or subjective temperature greater than 100.4F prior to today's visit. Patient denies travel on a cruise ship or to a country the [facility] currently lists as an affected area. Patient denies contact with known and/or suspected case of COVID-19. Ebola Screen: No symptoms or risks identified at this time. Initial Sepsis Screen: Does the patient meet any 2 criteria? No. Patient's initial sepsis screen is negative. Does the patient have a suspected source of infection? No. Patient's initial sepsis screen is negative. Risk Assessment: Do you want to hurt yourself or someone else? Patient reports no desire to harm self or others. 14:18 Method Of Arrival: EMS: [facility] vc 14:18 Acuity: [facility] 3 vc 14:22 Onset of symptoms was January 01, 2020. vc Historical: - Allergies: 14:32 No Known Allergies; vc - Home Meds: 14:32 Myrbetriq Oral [Active]; benazepril 40 mg Oral tab 1 tab once daily [Active]; vc duloxetine Oral [Active]; gabapentin Oral [Active]; Hydrochlorothiazide Oral [Active]; hydrocodone-acetaminophen 5-325 mg Oral tab 1 tab every 12 hours [Active]; lansoprazole 30 mg Oral cpDR 1 cap once daily [Active]; pravastatin 20 mg Oral tab 1 tab once daily [Active]; - PMHx: 14:32 spinal stenosis; Hypothyroidism; Arthritis; Hyperlipidemia; Hypertension; vc - Immunization history:: Adult Immunizations up to date, Last tetanus immunization: up to date Pneumococcal vaccine is up to date, Flu vaccine is up to date. - Social history:: Smoking status: Patient denies any tobacco usage or history of. - Family history:: not pertinent. - Hospitalizations: : No recent hospitalization is reported. Screenin:30 Abuse screen: Denies threats or abuse. Nutritional screening: No deficits noted. vc Tuberculosis screening: No symptoms or risk factors identified. Fall Risk None identified. Assessment: 14:19 Reassessment: Daughter Larissa Huizar [phone]. hb 14:30 General: Appears in no apparent distress. uncomfortable, Behavior is calm, cooperative, vc appropriate for age. Pain: Complains of pain in back Pain currently is 7 out of 10 on a pain scale. Neuro: Level of Consciousness is awake, alert, obeys commands, Oriented to person, place, time, situation. Cardiovascular: Capillary refill < 3 seconds Patient's skin is warm and dry. Respiratory: Airway is patent Respiratory effort is even, unlabored, Respiratory pattern is regular, symmetrical. GI: No signs and/or symptoms were reported involving the gastrointestinal system. : Reports incontinence. EENT: No signs and/or symptoms were reported regarding the EENT system. Derm: Skin is moist, Skin temperature is cool Wound noted lateral aspect of right calf. Musculoskeletal: Range of motion: limited in left hip and right hip. 15:30 Reassessment: Patient appears in no apparent distress at this time. Patient and/or vc family updated on plan of care and expected duration. Pain level reassessed. 15:35 Reassessment: Attempted to start IV 2 times, tech tried twice, unable to start a line. vc Charge nurse notified, Genie will attempt to start an IV. 16:00 Reassessment: Patient appears in no apparent distress at this time. Patient and/or vc family updated on plan of care and expected duration. Pain level reassessed. Patient is alert, oriented x 3, equal unlabored respirations, skin warm/dry/pink. 17:00 Reassessment: Patient appears in no apparent distress at this time. Patient and/or vc family updated on plan of care and expected duration. Pain level reassessed. Patient is alert, oriented x 3, equal unlabored respirations, skin warm/dry/pink. 18:00 Reassessment: Patient appears in no apparent distress at this time. Patient and/or vc family updated on plan of care and expected duration. Pain level reassessed. Patient is alert, oriented x 3, equal unlabored respirations, skin warm/dry/pink. 19:00 Reassessment: Patient appears in no apparent distress at this time. Patient and/or vc family updated on plan of care and expected duration. Pain level reassessed. Patient is alert, oriented x 3, equal unlabored respirations, skin warm/dry/pink. 20:00 Reassessment: Patient appears in no apparent distress at this time. No changes from vc previously documented assessment. Patient and/or family updated on plan of care and expected duration. Pain level reassessed. 21:00 Reassessment: Spoke with daughter Larissa, family made aware patient is to be transferred. vc 22:00 Reassessment: Patient appears in no apparent distress at this time. Patient and/or vc family updated on plan of care and expected duration. Pain level reassessed. Patient changed from soiled clothes. Vital Signs: 14:18 BP 115 / 58; Pulse 61; Resp 16; Temp 99.0(O); Pulse Ox 94% on R/A; Weight 145.15 kg; vc Height 5 ft. 8 in. (172.72 cm); 15:00 BP 124 / 57; Pulse 80; Resp 16; Pulse Ox 99% on 2 lpm NC; vc 17:00 BP 145 / 108; Pulse 85; Resp 15; Pulse Ox 97% on R/A; vc 18:00 BP 143 / 57; Pulse 81; Resp 17; Pulse Ox 96% on 2 lpm NC; vc 19:00 BP 144 / 73; Pulse 80; Resp 16; Pulse Ox 98% on R/A; vc 20:00 BP 133 / 71; Pulse 79; Resp 17; Temp 97.9; Pulse Ox 100% ; vc 14:18 Body Mass Index 48.66 (145.15 kg, 172.72 cm) vc ED Course: 14:17 Patient arrived in ED. vc 14:21 Triage completed. vc 14:22 Elina Lazaro, KYA is Primary Nurse. vc 14:28 Boone Stoner MD is Attending Physician. rn 14:30 Arm band placed on right wrist. vc 14:30 Patient has correct armband on for positive identification. mds nurse on. Pulse vc ox on. NIBP on. 15:00 XRAY Chest (1 view) In Process Unspecified. EDMS 15:00 Missed attempt(s): 20 gauge Bleeding controlled, band aid applied, catheter tip intact. vc 15:10 Missed attempt(s): 24 gauge Bleeding controlled, band aid applied, catheter tip intact. vc 15:56 Inserted saline lock: 22 gauge in left antecubital area, using aseptic technique. Blood hb collected. 17:06 CT Head Brain wo Cont In Process Unspecified. EDMS 17:46 MRI Lumbar Spine wo Con In Process Unspecified. EDMS 18:25 initiated a transfer with Pamela Bro from the [facility]. eb 18:47 Assist provider with laceration repair on lateral aspect of right calf that was 2.5 cm. vc or less using sutures. Set up tray. Performed by Boone Stoner MD Patient tolerated well. 18:[address] Pantoja the neurologist cable television access coordinator for [facility] with Dr. Stoner for patient transfer consultation. 19:38 fidelina Abdul coordinator gave room number and approval time. Dr. Zulma Cuba tt3 is the accepting physician. Pt going to room 2238. Report to be called to [phone]. 22:00 Patient transferred, IV remains in place. vc Administered Medications: 18:20 Drug: Lidocaine (1 %) 20 ml Volume: 20 ml; Route: Infiltration; vc Outcome: 19:02 ER care complete, transfer ordered by . rn 22:00 Transferred by ground EMS to [facility], Transfer form completed. vc X-rays sent w/ patient. 22:00 Condition: good 22:00 Instructed on discharge instructions, the need for transfer. vc 22:01 Patient left the ED. vc Signatures: Dispatcher [employer] EDMS Boone Stoner MD MD rn Baxter, Heather, RN RN hb Botello, Elizabeth eb Calcote, Vanessa, RN RN vc Trim, Tyler tt3 Corrections: (The following items were deleted from the chart) 16:41 16:17 Reassessment: Attempted to start IV 2 times, tech tried twice, unable to start a vc line. Charge nurse notified, Genie will attempt to start an IV. vc
[2020-01-01 22:20] VITALS: BP 133/71; TEMP 97.9; O2SAT 100
== END 2020-01-01 22:01 | disposition short-term general hospital (02) ==
LOC: ER 14:01
DX: M48.061 Spinal stenosis, lumbar region without neurogenic claudication (principal); R20.2 Paresthesia of skin; I10 Essential (primary) hypertension; E78.5 Hyperlipidemia, unspecified
CPT/HCPCS: 36415; 70450; 71045; 72148; 80048; 83880; 85025; 99285

== ENCOUNTER 2021-06-17 19:42 | Emergency (ER) | payer OTHER ==
--- OUTSIDE RECORDS SUMMARY | 2021-06-17 19:45 | XMS REPORT | Continuity of Care Document ---
:[address] [facility] t Address 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 Me moria replacemen replacemen l t [facility] Bilateral Bilateral Problem Active [facility] - extremity extremity Jai annabelle edema edema l [facility] Gastro-eso Gastro-eso Problem Active [facility] phageal phageal [facility] - reflux reflux Memoria disease disease l without without Outpati esophagiti esophagiti en t s s Clinics Gout Gout Problem Active [facility] Hypokalemi Hypokalemi Problem Active [facility] Constipati Constipati Problem Active [facility] on [facility] Hyperlipid Hyperlipid Problem Active [facility] emia emia [facility] Hypertensi Hypertensi Problem Active [facility] on on [facility] - [facility] Rheumatoid Rheumatoid Problem Active [facility] arthritis arthritis Luke s - Memoria l [facility] Chronic Chronic Problem Active [facility] kidney kidney [facility] - disease disease [facility] l [facility] Prediabete Prediabete Problem Active [facility] s [facility]ics Hypothyroi Hypothyroi Problem Active [facility] dism dism [facility] - [facility]ics Osteoarthr Osteoarthr Problem Active [facility] itis of itis of [facility] - multiple multiple Memori a joints joints l [facility] Pain in Pain in Problem Active [facility] right foot right foot Maisha kes - Memoria l [facility]ics 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 [facility] - disease disease [facility] l [facility] Restless Restless Problem Active [facility] legs legs [facility] - syndrome syndrome Memori a l [facility] Pain in Pain in Problem Active [facility] left ankle left ankle Maisha kes - and joints and joints Me moria of left of left l foot foot [facility] Stasis Stasis Problem Active [facility] dermatitis dermatitis Maisha kes - Memoria l [facility] Urinary Urinary Problem Active [facility] incontinen incontinen Maisha kes - ce, ce, Memoria unspecifie unspecifie l d type d type [facility] Balance Balance Problem Active [facility] problem problem [facility] - [facility]ics Functional Functional Problem Active [facility] incontinen incontinen Maisha kes - ce ce [facility] l [facility] Anemia, Anemia, Problem Active [facility] unspecifie unspecifie Maisha kes - d type d type [facility] l [facility] Iron Iron Problem Active [facility] deficiency deficiency Maisha kes - anemia, anemia, Memoria unspecifie unspecifie l d iron d iron Outpati deficiency deficiency en t anemia anemia Clinics type type 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 Clinician (SIG) Name Name Slow Slow 2019-0 Yes Maurice [address] [facility] Release Release 4-23 [place] [facility] - Iron Iron 00:00: Memoria 00 l [facility] Supply Supply Yes Maurice not [facility] defined [facility] - [facility] Align Align Yes Maurice not [facility] defined [facility] - [facility] l [facility] Voltaren Volterneston Yes Maurice apply to [facility] affected [facility] - area [facility] l [facility]ics Centrum Centrum Yes Maurice not [facility] Silver Silver [place] defined [facility] - [facility] B1 Natural B1 Natural Yes Maurice as [facility] directed [facility] - [facility] Prevacid Prevacid Yes Maurice TAKE [address] [facility] [place] CAPSULE [facility] - ONCE DAILY [facility]oria l [facility] Benazepril Benazepril Yes Maurice TAKE [address] [facility] HCl HCl [facility] TABLET [facility] - ONCE DAILY [facility]oria l [facility] Gabapentin Gabapentin Yes Maurice [address] [facility] [place] [facility] MiraLax MiraLax Yes Maurice [address] [facility] [place] [facility] Tramadol Tramadol Yes Maurice [address] HCl HCl [place] as needed [facility] - [facility] Plaquenil Plaquenil Yes Maurice [address] [facility] [place] with food [facility] - or milk [facility]oria l [facility] Tricor Tricor Yes Maurice TAKE [address] [facility] [place] TABLET [facility] - DAILY WITH Memoria FOOD l [facility] Benazepril Benazepril Yes Maurice [address] [address] HCl HCl [place] [facility] Hydrocodone Hydrocodone Yes Maurice [address] -Acetaminop -Acetaminop [place] as needed [facility] - hen hen [facility]oria l [facility] Pravastatin Pravastatin Yes Maurice TAKE [address] [facility] Sodium Sodium [place] TABLET [facility] - ONCE DAILY Memoria l [facility] Allopurinol Allopurinol Yes Maurice [address] [facility] [place] [facility] Lasix Lasix Yes Maurice [address] [facility] [place] [facility]ics Linzess Linzess Yes Maurice [address] [place] [facility] Fish Oil Fish Oil Yes Maurice not [facility] [place] defined [facility] - [facility] Neurontin Neurontin Yes Maurice [address] [facility] [place] [facility] Klor-Con 10 Klor-Con 10 Yes Maurice [address] [facility] [place] with food [facility] - [facility] l [facility] Duloxetine Duloxetine Yes Maurice [address] HCl HCl Hlils [facility] - Memoria l Outpati ent Clinics Levothyroxi Levothyroxi Yes Maurice [address] [facility] ne Sodium ne Sodium [place] on an Martin es - empty Memoria stomach in l the Outpati morning ent Clinics Prevacid Prevacid Yes Maurice [address] [facility] [place] [facility] l Outpat[facility] ent Clinics Immunizations Ordered Filled Immunization Date Status Comments Sourc e Immunization Name Name FluAD FluAD 2019-04-[address] [facility] - 00:00:00 [facility] FluAD FluAD 2019-04-[address] [facility] - 00:00:00 [facility] Vital Signs Vital Name Observation Time Observation Value Comments Source HEIGHT 2020-01-01 00:00:00 172.7 cm WEIGHT 2020-01-01 00:00:00 145 kg HEIGHT 2020-01-01 00:00:00 172.7 cm WEIGHT 2020-01-01 00:00:00 145 kg Procedures This patient has no known procedures. Encounters Start End Encounter Admission Attending Care Care Encounter Source Date/Time Date/Time Type Type Clinicians Facility Department ID 2020-01-01 Inpatient ER [facility] Neurosurger [id number] [facility] 23:22:00 PATRICIA y 2020-01-01 2020-01-01 [facility] [id number] [facility] 13:28:00 13:28:00 [facility] Medicine Outpati ent Clinics 2019-12-14 2019-12-14 [facility] [id number] 09:21:00 09:21:00 [facility] Medicine l Medicine Outpati ent Clinics 2019-11-19 2019-11-19 [facility] [id number] 09:45:00 09:45:00 [facility] Medicine l Medicine Outpati ent Clinics 2019-11-18 2019-11-18 [facility] [id number] 10:34:00 10:34:00 [facility] Medicine l Medicine Outpati ent Clinics 2019-10-19 2019-10-19 [facility] [id number] 11:41:00 11:41:00 t Tyrone Tyrone [employer] Luke s - Drive [facility] Medicine l Medicine Outpati ent Clinics 2019-09-28 2019-09-28 [facility] [id number] 15:31:00 15:31:[address] Luke s - Drive [facility] Medicine l Medicine Outpati ent Clinics 2019-07-28 2019-07-28 [facility] [id number] 10:00:00 10:00:00 t Specialty/U Maisha kes - Specialty rology Memori a /Urology Clinic l Clinic Outpati ent Clinics 2019-07-21 2019-07-21 [facility] [id number] 10:00:00 10:00:00 t Tyrone Tyrone [employer] [place] s - Drive [facility] Medicine l Medicine Outpati ent Clinics 2019-07-14 2019-07-14 [facility] [id number] 09:34:00 09:34:00 t Tyrone Tyrone [employer] s - Drive [facility] Medicine l Medicine Outpati ent Clinics 2019-07-03 2019-07-03 [facility] [id number] 11:52:00 11:52:00 t Tyrone Tyrone [employer] [facility] s - Drive [facility] l Medicine Outpati ent Clinics 2019-06-08 2019-06-08 [facility] [id number] 15:57:00 15:57:00 t Tyrone Tyrone [employer] s - Drive [facility] Medicine l Medicine Outpati ent Clinics 2019-05-28 2019-05-28 [facility] [id number] 10:15:00 10:15:00 t Tyrone Tyrone [employer] Luke s - Drive [facility] Medicine l Medicine Outpati ent Clinics 2019-05-20 2019-05-20 [facility] [id number] 09:33:00 09:33:00 t Tyrone Tyrone [employer] [place] s - Drive [facility] Medicine l Medicine Outpati ent Clinics 2019-04-27 2019-04-27 [facility] [id number] 14:22:00 14:22:00 t Specialty/U Maisha kes - Specialty rology Memori a /Urology Clinic l Clinic Outpati ent Clinics 2019-04-17 2019-04-17 [facility] [id number] 14:00:00 14:00:00 t Specialty/U Maisha kes - Specialty rology Memori a /Urology Clinic l Clinic Outpati ent Clinics 2019-04-17 2019-04-17 [facility] [id number] 10:33:00 10:33:00 t [employer] [facility] Outpati ent Clinics 2019-02-24 2019-02-24 [facility] [id number] 09[facility]30:00 09:30:00 t [employer] Outpati ent Clinics 2019-01-20 2019-01-20 [facility] [id number] 10:59:00 10:59:00 t Specialty/U Maisha kes - Specialty rology Memori a /Urology Clinic l Clinic Outpati ent Clinics 2019-01-19 2019-01-19 [facility] [id number] 09:29:00 09:29:00 t Specialty/U Maisha kes - Specialty rology Memori a /Urology Clinic l Clinic Outpati ent Clinics 2019-01-15 2019-01-15 [facility] [id number] 10:02:00 10:02:00 t Specialty/U Maisha kes - Specialty rology Memori a /Urology Clinic l Clinic Outpati ent Clinics 2019-01-06 2019-01-06 [facility] [id number] 13:15:00 13:15:00 t Specialty/U Maisha kes - Specialty rology Memori a /Urology Clinic l Clinic Outpati ent Clinics 2018-12-09 2018-12-09 [facility] [id number] 13:00:00 13:00:00 t Specialty/U Maisha kes - Specialty rology Memori a /Urology Clinic l Clinic Outpati ent Clinics 2018-11-25 2018-11-25 [facility] [id number] 09:15:00 09:15:00 t [employer] [facility] Outpati ent Clinics 2018-08-21 2018-08-21 [facility] [id number] 10:30:00 10:30:00 t [employer] s - Drive [facility] Outpati ent Clinics 2018-08-06 2018-08-06 [facility] [id number] 10:52:00 10:52:00 t [employer] s - Drive [facility] Medicine Outpati ent Clinics 2018-08-04 2018-08-04 [facility] [id number] 09:26:00 09:26:00 t [employer] - [employer] [facility] Medicine Outpati ent Clinics 2018-07-31 2018-07-31 [facility] [id number] 13:30:00 13:30:00 t [employer] [facility] - [employer] [facility] Medicine Outpati ent Clinics 2018-02-19 2018-02-19 [facility] [id number] 13:45:00 13:45:00 t [employer] [facility] Medicine Outpati ent Clinics 2017-11-05 2017-11-05 [facility] [id number] 09:30:00 09:30:00 t [employer] [facility] Outpati ent Clinics Results Test Description Test Time Test Comments Results Result Comments Source POCT-GLUCOSE METER 2020-01-14 11:06:00 Test Item Value Reference Range Interpretation Comme nts POC-GLUCOSE METER ([employer]) 145 mg/dL 70-110 H : TESTED AT [address] (test code = 1538) [facility], [address]: Rest Room Attendant/Techni omid ID = [id number] for BROWN, SARA POCT-GLUCOSE [id number] 08:37:00 Test Item Value Reference Range Interpretation Comments POC-GLUCOSE METER 101 mg/dL 70-110 : TESTED A T [facility] 6720 (BEAKER) (test code = FRANCK Lundy [facility], 1538) [address]: Rest Room Attendant/Techni omid ID = [id number] for BR OWN, SARA POCT-GLUCOSE [id number] 20:48:00 Test Item Value Reference Range Interpretation Comments POC-GLUCOSE METER 143 mg/dL 70-110 H : TESTED A T [facility] 6720 (BEAKER) (test code = [facility], 1538) [address]: Rest Room Attendant/Techni omid ID = [id number] for KOREY HNSON, JOANQUETTA POCT-GLUCOSE [id number] 16:46:00 Test Item Value Reference Range Interpretation Comments POC-GLUCOSE METER 129 mg/dL 70-110 H : TESTED A T [facility] 6720 (BEAKER) (test code [facility], = 1538) [address]: Rest Room Attendant/Techni omid ID = [id number] for TSEG GAI, TSIGHEREDA POCT-GLUCOSE [id number] 12:23:00 Test Item Value Reference Range Interpretation Comments POC-GLUCOSE METER 130 mg/dL 70-110 H : TESTED A T [facility] 6720 (BEAKER) (test code [facility], = 1538) [address]: Rest Room Attendant/Techni omid ID = [id number] for TSEG GAI, TSIGHEREDA POCT-GLUCOSE [id number] 09:40:00 Test Item Value Reference Range Interpretation Comments POC-GLUCOSE METER 102 mg/dL 70-110 : TESTED A T [facility] 6720 (BEAKER) (test code [facility], = 1538) [address]: Rest Room Attendant/Techni omid ID = [id number] for TSEG GAI, TSIGHEREDA POCT-GLUCOSE [id number] 21:24:00 Test Item Value Reference Range Interpretation Comments POC-GLUCOSE METER 113 mg/dL 70-110 H : TESTED A T [facility] 6720 (BEAKER) (test code = [facility], 1538) [address]: Rest Room Attendant/Techni omid ID = [id number] for KOREY HNSON, JEQUETTA POCT-GLUCOSE [id number] 17:10:00 Test Item Value Reference Range Interpretation Comments POC-GLUCOSE METER 139 mg/dL 70-110 H : TESTED A T [facility] 6720 (BEAKER) (test code [facility], = 1538) [address]: Rest Room Attendant/Techni omid ID = [id number] for TSEG GAI, TSIGHEREDA POCT-GLUCOSE [id number] 13:07:00 Test Item Value Reference Range Interpretation Comments POC-GLUCOSE METER 94 mg/dL 70-110 : TESTED A T [facility] 6720 (BEAKER) (test code [facility], = 1538) [address]: Rest Room Attendant/Techni omid ID = [id number] for TSEG GAI, TSIGHEREDA POCT-GLUCOSE [id number] 09:57:00 Test Item Value Reference Range Interpretation Comments POC-GLUCOSE METER 101 mg/dL 70-110 : TESTED A T [facility] 6720 (BEAKER) (test code [facility], = 1538) [address]: Rest Room Attendant/Techni omid ID = [id number] for TSEG GAI, TSIGHEREDA POCT-GLUCOSE [id number] 00:40:00 Test Item Value Reference Range Interpretation Comments POC-GLUCOSE METER 111 mg/dL 70-110 H : TESTED A T [facility] 6720 (BEAKER) (test code = [facility], 1538) [address]: Rest Room Attendant/Techni omid ID = [id number] for DO VE, CHEKARA POCT-GLUCOSE [id number] 11:38:00 Test Item Value Reference Range Interpretation Comments POC-GLUCOSE METER 133 mg/dL 70-110 H : TESTED A T [facility] 6720 (BEAKER) (test code = [facility], 1538) [address]: Rest Room Attendant/Techni omid ID = [id number] for BR OWN, SARA POCT-GLUCOSE [id number] 08:45:00 Test Item Value Reference Range Interpretation Comments POC-GLUCOSE METER 106 mg/dL 70-110 : TESTED A T [facility] 6720 (BEAKER) (test code = [facility], 1538) [address]: Rest Room Attendant/Techni omid ID = [id number] for BR OWN, SARA TISSUE [id number] 22:15:00Surgical Pathology Report Case: [id number] Authorizing Provider: Zach Mendoza MD Collected: 01/03/2020 11:39 AM Ordering Location: [address] Received: 01/04/2020 09:02 AM Service Pathologist: Nazario Barakat MD Specimen: Disc L2-3 VERTEBRAL COLUMN,INTERVERTEBRAL DISC, L2-3, DISCECTOMY:FRAGMENTS OF FIBROCARTILAGE WITH MILD DEGENERATIVE CHANGES Signing Pathologist Direct Phone Line: [phone] signed by Nazario Barakat MD on 01/10/2020 at 10:15 [id number]; [id number] disc herniationA. Disc L2-3A. Received fresh, labeled with the patient's name, MRN and "disc L2-3" is a 2 x 1.5 x 0.3 cm aggregate of multiple pink-white fibrocar tilagenous tissue fragments. [employer] sections are submitted in A1, following light decalcification.SAMMI Leigh, PA (ASCP)PerformedPOCT- GLUCOSE [id number] 21:12:00 Test Item Value Reference Range Interpretation Comments POC-GLUCOSE METER 115 mg/dL 70-110 H : Notified RN/MD: (MACRINA) (test code = TESTED AT [place] [address]) [facility], [address]: Rest Room Attendant/Techni omid ID = [id number] for DO VE, CHEKARA POCT-GLUCOSE [id number] 17:47:00 Test Item Value Reference Range Interpretation Comments POC-GLUCOSE METER 116 mg/dL 70-110 H : [facility] ([facility] (test code = [facility], 1538) [address]: Rest Room Attendant/Techni omid ID = [id number] for RO DGERS, JAMECA POCT-GLUCOSE [id number] 13:03:00 Test Item Value Reference Range Interpretation Comments POC-GLUCOSE METER 96 mg/dL 70-110 : [facility] ([facility]) (test code = [facility], 153) [address]: Rest Room Attendant/Techni omid ID = [id number] for RODG ERS, JAMECA POCT-GLUCOSE [id number] 08:29:00 Test Item Value Reference Range Interpretation Comments POC-GLUCOSE METER 112 mg/dL 70-110 H : TESTED A T [facility] 6720 ([facility]) (test code = [facility], 153) [address]: Rest Room Attendant/Techni omid ID = [id number] for RO DGERS, JAMECA POCT-GLUCOSE [id number] 23:21:00 Test Item Value Reference Range Interpretation Comments POC-GLUCOSE METER 127 mg/dL 70-110 H : Notified RN/MD: (MACRINA) (test code = TESTED AT [place] [address]) [place], [address]: Rest Room Attendant/Techni omid ID = [id number] for FAISAL PEREZ BASIC METABOLIC [id number] 18:26:00 Test Item Value Reference Range Interpretation Comments SODIUM (BEAKER) 140 meq/L 136-145 (test code = 381) POTASSIUM (BEAKER) 4.0 meq/L 3.5-5.1 (test code = 379) CHLORIDE (BEAKER) 106 meq/L 98-107 (test code = 382) CO2 (BEAKER) (test 27 meq/L 22-29 code = 355) BLOOD UREA NITROGEN 14 mg/dL 7-21 (BEAKER) (test code = 354) CREATININE (BEAKER) 0.73 mg/dL 0.57-1.25 (test code = 358) GLUCOSE RANDOM 120 mg/dL 70-105 H (BEAKER) (test code = 652) CALCIUM (BEAKER) 9.2 mg/dL 8.4-10.2 (test code = 697) EGFR (BEAKER) (test 77 mL/min/1.73 ESTIMA EMIR GFR IS code = 1092) sq m NOT ACCURATE CREATININE CLEARANCE IN PREDICTING GLOMERULAR FILTRATION RATE . ESTIMATED GFR I S NOT APPLICABLE FOR DIALYSIS PATIEN TS. Rest Room Attendant ID - [id number] W/PLT COUNT & AUTO [id number] 18:14:00 Test Item Value Reference Range Interpretation Comments WHITE BLOOD CELL COUNT (BEAKER) 7.0 K/ L 3.5-10.5 (test code = 775) RED BLOOD CELL COUNT (BEAKER) 4.42 M/ L 3.93-5.22 (test code = 761) HEMOGLOBIN (BEAKER) (test code = 11.6 GM/DL 11.2-15.7 410) HEMATOCRIT (BEAKER) (test code = 40.2 % 34.1-44.9 411) MEAN CORPUSCULAR VOLUME (BEAKER) 91.0 fL 79.4-94.8 (test code = 753) MEAN CORPUSCULAR HEMOGLOBIN 26.2 pg 25.6-32.2 (BEAKER) (test code = 751) MEAN CORPUSCULAR HEMOGLOBIN CONC 28.9 GM/DL 32.2-35.5 L (BEAKER) (test code = 752) RED CELL DISTRIBUTION WIDTH 20.5 % 11.7-14.4 H (BEAKER) (test code = 412) PLATELET COUNT (BEAKER) (test 225 K/CU MM 150-450 code = 756) MEAN PLATELET VOLUME (BEAKER) 11.8 fL 9.4-12.3 (test code = 754) NUCLEATED RED BLOOD CELLS 0 /100 WBC 0-0 (BEAKER) (test code = 413) NEUTROPHILS RELATIVE PERCENT 72 % (BEAKER) (test code = 429) LYMPHOCYTES RELATIVE PERCENT 10 % (BEAKER) (test code = 430) MONOCYTES RELATIVE PERCENT 13 % (BEAKER) (test code = 431) EOSINOPHILS RELATIVE PERCENT 2 % (BEAKER) (test code = 432) BASOPHILS RELATIVE PERCENT 2 % (BEAKER) (test code = 437) NEUTROPHILS ABSOLUTE COUNT 5.09 K/ L 1.56-6.13 (BEAKER) (test code = 670) LYMPHOCYTES ABSOLUTE COUNT 0.73 K/ L 1.18-3.74 L (BEAKER) (test code = 414) MONOCYTES ABSOLUTE COUNT (BEAKER) 0.91 K/ L 0.24-0.36 H (test code = 415) EOSINOPHILS ABSOLUTE COUNT 0.17 K/ L 0.04-0.36 (BEAKER) (test code = 416) BASOPHILS ABSOLUTE COUNT (BEAKER) 0.11 K/ L 0.01-0.08 H (test code = 417) IMMATURE GRANULOCYTES-RELATIVE 0 % 0-1 PERCENT (BEAKER) (test code = 2801) POCT-GLUCOSE [id number] 17:23:00 Test Item Value Reference Range Interpretation Comments POC-GLUCOSE METER 125 mg/dL 70-110 H : TESTED A T [facility] 6720 (BEAKER) (test code = [facility], 1538) [address]: Rest Room Attendant/Techni omid ID = [id number] for AK INSONU, WILLIAM POCT-GLUCOSE [id number] 12:56:00 Test Item Value Reference Range Interpretation Comments POC-GLUCOSE METER 127 mg/dL 70-110 H : TESTED A T [facility] 6720 (BEAKER) (test code = [facility], 1538) [address]: Rest Room Attendant/Techni omid ID = [id number] for AK INSONU, WILLIAM POCT-GLUCOSE [id number] 08:53:00 Test Item Value Reference Range Interpretation Comments POC-GLUCOSE METER 105 mg/dL 70-110 : TESTED A T [facility] 6720 (BEAKER) (test code = [facility], 1538) [address]: Rest Room Attendant/Techni omid ID = [id number] for AK INSONU, WILLIAM POCT-GLUCOSE [id number] 21:56:00 Test Item Value Reference Range Interpretation Comments POC-GLUCOSE METER 132 mg/dL 70-110 H : TESTED A T [facility] 6720 (BEAKER) (test code = [facility], 1538) [address]: Rest Room Attendant/Techni omid ID = [id number] for DE NNIS, SILVA POCT-GLUCOSE [id number] 16:35:00 Test Item Value Reference Range Interpretation Comments POC-GLUCOSE METER 100 mg/dL 70-110 : TESTED A T [facility] 6720 (BEAKER) (test code = [facility], 1538) [address]: Rest Room Attendant/Techni omid ID = [id number] for BR OWN, SARA POCT-GLUCOSE [id number] 12:05:00 Test Item Value Reference Range Interpretation Comments POC-GLUCOSE METER 122 mg/dL 70-110 H : TESTED A T [facility] 6720 (BEAKER) (test code = [facility], 1538) 04563: Rest Room Attendant/Techni omid ID = [id number] for BR OWN, SARA POCT-GLUCOSE [id number] 09:03:00 Test Item Value Reference Range Interpretation Comments POC-GLUCOSE METER 100 mg/dL 70-110 : TESTED A T [facility] 6720 (BEAKER) (test code = [facility], 1538) 72627: Rest Room Attendant/Techni omid ID = [id number] for BR OWN, SARA POCT-GLUCOSE [id number] 22:05:00 Test Item Value Reference Range Interpretation Comments POC-GLUCOSE METER 135 mg/dL 70-110 H : TESTED A T [facility] 6720 (BEAKER) (test code = [facility], 153) 79443: Rest Room Attendant/Techni omid ID = [id number] for DE NNIS, SILVA POCT-GLUCOSE [id number] 16:38:00 Test Item Value Reference Range Interpretation Comments POC-GLUCOSE METER 107 mg/dL 70-110 : TESTED A T [facility] 6720 (BEAKER) (test code [facility], = 1538) 97635: Rest Room Attendant/Techni omid ID = [id number] for TSEG GAI, TSIGHEREDA POCT-GLUCOSE [id number] 12:03:00 Test Item Value Reference Range Interpretation Comments POC-GLUCOSE METER 111 mg/dL 70-110 H : TESTED A T [facility] 6720 (BEAKER) (test code [facility], = 1538) 09598: Rest Room Attendant/Techni omid ID = [id number] for TSEG GAI, TSIGHEREDA POCT-GLUCOSE [id number] 22:07:00 Test Item Value Reference Range Interpretation Comments POC-GLUCOSE METER 112 mg/dL 70-110 H : TESTED A T [facility] 6720 (BEAKER) (test code = [facility], 1538) 74833: Rest Room Attendant/Techni omid ID = [id number] for DE NNIS, SILVA POCT-GLUCOSE [id number] 17:28:00 Test Item Value Reference Range Interpretation Comments POC-GLUCOSE METER 93 mg/dL 70-110 : TESTED A T [facility] 6720 (BEAKER) (test code [facility], = 1538) 85247: Rest Room Attendant/Techni omid ID = [id number] for TSEG GAI, TSIGHEREDA POCT-GLUCOSE [id number] 15:47:00 Test Item Value Reference Range Interpretation Comments POC-GLUCOSE METER 128 mg/dL 70-110 H : TESTED A T [facility] 6720 (BEAKER) (test code = [facility], 1538) 02659: Rest Room Attendant/Techni omid ID = [id number] for BR OWN, SARA POCT-GLUCOSE [id number] 09:01:00 Test Item Value Reference Range Interpretation Comments POC-GLUCOSE METER 108 mg/dL 70-110 : TESTED A T [facility] 6720 (BEAKER) (test code = [facility], 1538) 55719: Rest Room Attendant/Techni omid ID = [id number] for BR OWN, SARA POCT-GLUCOSE [id number] 11:17:00 Test Item Value Reference Range Interpretation Comments POC-GLUCOSE METER 105 mg/dL 70-110 : TESTED A T [facility] 6720 (BEAKER) (test code = [facility] [place], 1538) 68367: Rest Room Attendant/Techni omid ID = [id number] for HU NT, KAYKAY POCT-GLUCOSE [id number] 09:40:00 Test Item Value Reference Range Interpretation Comments POC-GLUCOSE METER 106 mg/dL 70-110 : [facility] (test code = [facility], 1538) 89608: Rest Room Attendant/Techni omid ID = [id number] for HU NT, KAYKAY CBC W/PLT COUNT & AUTO [id number] 06:05:00 Test Item Value Reference Range Interpretation Comments WHITE BLOOD CELL COUNT (BEAKER) 5.2 K/ L 3.5-10.5 (test code = 775) RED BLOOD CELL COUNT (BEAKER) 3.77 M/ L 3.93-5.22 L (test code = 761) HEMOGLOBIN (BEAKER) (test code = 9.8 GM/DL 11.2-15.7 L 410) HEMATOCRIT (BEAKER) (test code = 34.6 % 34.1-44.9 411) MEAN CORPUSCULAR VOLUME (BEAKER) 91.8 fL 79.4-94.8 (test code = 753) MEAN CORPUSCULAR HEMOGLOBIN 26.0 pg 25.6-32.2 (BEAKER) (test code = 751) MEAN CORPUSCULAR HEMOGLOBIN CONC 28.3 GM/DL 32.2-35.5 L (BEAKER) (test code = 752) RED CELL DISTRIBUTION WIDTH 21.1 % 11.7-14.4 H (BEAKER) (test code = 412) PLATELET COUNT (BEAKER) (test 149 K/CU MM 150-450 L code = 756) MEAN PLATELET VOLUME (BEAKER) 11.6 fL 9.4-12.3 (test code = 754) NUCLEATED RED BLOOD CELLS 0 /100 WBC 0-0 (BEAKER) (test code = 413) NEUTROPHILS RELATIVE PERCENT 64 % (BEAKER) (test code = 429) LYMPHOCYTES RELATIVE PERCENT 15 % (BEAKER) (test code = 430) MONOCYTES RELATIVE PERCENT 15 % (BEAKER) (test code = 431) EOSINOPHILS RELATIVE PERCENT 4 % (BEAKER) (test code = 432) BASOPHILS RELATIVE PERCENT 3 % (BEAKER) (test code = 437) NEUTROPHILS ABSOLUTE COUNT 3.30 K/ L 1.56-6.13 (BEAKER) (test code = 670) LYMPHOCYTES ABSOLUTE COUNT 0.75 K/ L 1.18-3.74 L (BEAKER) (test code = 414) MONOCYTES ABSOLUTE COUNT (BEAKER) 0.76 K/ L 0.24-0.36 H (test code = 415) EOSINOPHILS ABSOLUTE COUNT 0.20 K/ L 0.04-0.36 (BEAKER) (test code = 416) BASOPHILS ABSOLUTE COUNT (BEAKER) 0.13 K/ L 0.01-0.08 H (test code = 417) IMMATURE GRANULOCYTES-RELATIVE 1 % 0-1 PERCENT (BEAKER) (test code = 2801) LACTIC ACID, [id number] 06:03:00 Test Item Value Reference Range Interpretation Comments LACTATE BLOOD VENOUS (2) (BEAKER) 0.81 mmol/L 0.50-2.20 (test code = 2872) Rest Room Attendant ID - BRIAN MPOCT-GLUCOSE [id number] 08:30:00 Test Item Value Reference Range Interpretation Comments POC-GLUCOSE METER 101 mg/dL 70-110 : TESTED A T [facility] 6720 (BEAKER) (test code = [facility], 1538) 10236: Rest Room Attendant/Techni omid ID = [id number] for WILLIAM LYNCH BASIC METABOLIC [id number] 05:19:00 Test Item Value Reference Range Interpretation Comments SODIUM (BEAKER) 139 meq/L 136-145 (test code = 381) POTASSIUM (BEAKER) 4.2 meq/L 3.5-5.1 (test code = 379) CHLORIDE (BEAKER) 109 meq/L 98-107 H (test code = 382) CO2 (BEAKER) (test 25 meq/L 22-29 code = 355) BLOOD UREA NITROGEN 12 mg/dL 7-21 (BEAKER) (test code = 354) CREATININE (BEAKER) 0.67 mg/dL 0.57-1.25 (test code = 358) GLUCOSE RANDOM 108 mg/dL 70-105 H (BEAKER) (test code = 652) CALCIUM (BEAKER) 7.9 mg/dL 8.4-10.2 L (test code = 697) EGFR (BEAKER) (test 85 mL/min/1.73 ESTIMA EMIR GFR IS code = 1092) sq m NOT ACCURATE CREATININE CLEARANCE IN PREDICTING GLOMERULAR FILTRATION RATE . ESTIMATED GFR I S NOT APPLICABLE FOR DIALYSIS PATIEN TS. Rest Room Attendant ID - BRIAN MPOCT-GLUCOSE [id number] 22:02:00 Test Item Value Reference Range Interpretation Comments POC-GLUCOSE METER 140 mg/dL 70-110 H : TESTED A T [facility] 6720 ([employer]) (test code = [facility], 1538) 32210: Rest Room Attendant/Techni omid ID = [id number] for DE NNIS, SILVA POCT-GLUCOSE [id number] 18:05:00 Test Item Value Reference Range Interpretation Comments POC-GLUCOSE METER 128 mg/dL 70-110 H : TESTED A T [facility] 6720 ([employer]) (test code [facility], = 1538) 10575: Rest Room Attendant/Techni omid ID = [id number] for ZULEYMA TONEYEREDA RAD, CHEST, 1 VIEW, NON [id number] 14:05:00Reason for exam:->Check position of central lineFINAL REPORT TECHNIQUE: Frontal view of the chest. INDICATION: 79-year-old woman after central line placement. COMPARISON: Chest radiograph 01/02/2020. FINDINGS: LINES/TUBES: Right internal jugular central venous catheter tip projects over the expected region of the right brachiocephalic vein. LUNGS: Lungs are well inflated. Mild streaky atelectasis in the left lower lung zone. PLEURA: No pneumothorax or significant pleural effusion. HEART AND MEDIASTINUM: Cardiomediastinal silhouette is unchanged. BONES AND SOFT TISSUES: Unremarkable. IMPRESSION:Lines/tubes as above. Otherwise, no significant change since 01/02/2020. Signed: Nat Mcclellan MDReport Verified Date/Time: 01/03/2020 14:05:38 Reading Location: [facility] C013Y CT Body Reading Room FL, FLUORO, NON-SPECIFIC, UP TO 1 [id number] 10:07:00 Reason for exam:->Lumbar LaminectomyFINAL REPORT Fluoroscopy, less than 1 hour History:Localization for lumbar spine surgery Comparison: none Findings:Fluoroscopic assistance was provided during lumbar spine surgery. The images are taken in lateral projection. The localization device appears at L3. Please see separate procedure note for full details. Total Fluoroscopy time: 46.4 seconds Number of fluoroscopic images obtained: 2 Impression:Fluoroscopy assistance as described above. Findings discussed with Dr. Sosa the emergency room at the time of this dictation. Signed: Nitin Naranjo MDReport Verified Date/Time: 01/03/2020 10:07:45 Reading Location: [facility] B1 C013X Ortho Consult Reading Room [id number] 06:23:00 Test Item Value Reference Range Interpretation Comments FERRITIN (BEAKER) (test code = 39.88 ng/mL 5.00-275.00 361) Rest Room Attendant ID - BRIAN MVITAMIN B12 AND [id number] 06:23:00 Test Item Value Reference Range Interpretation Comments VITAMIN B12 (BEAKER) (test code = 232 pg/mL 213-816 774) FOLATE (BEAKER) (test code = 362) 9.30 ng/mL >=7.00 Rest Room Attendant ID - BRIAN LACY, TIBC, % SAT. (WITHOUT FERRITIN)2020-01-03 05:49:00 Test Item Value Reference Range Interpretation Comments IRON (BEAKER) (test code = 547) 37.0 ug/dL 40.0-160.0 L TOTAL IRON BINDING CAPACITY 436 ug/dL 250-450 (BEAKER) (test code = 769) IRON % SATURATION (2) (BEAKER) 8 % 20-55 L (test code = 2590) Rest Room Attendant ID - BRIAN MBASIC METABOLIC [id number] 05:25:00 Test Item Value Reference Range Interpretation Comments SODIUM (BEAKER) 141 meq/L 136-145 (test code = 381) POTASSIUM (BEAKER) 4.1 meq/L 3.5-5.1 (test code = 379) CHLORIDE (BEAKER) 109 meq/L 98-107 H (test code = 382) CO2 (BEAKER) (test 24 meq/L 22-29 code = 355) BLOOD UREA NITROGEN 13 mg/dL 7-21 (BEAKER) (test code = 354) CREATININE (BEAKER) 0.67 mg/dL 0.57-1.25 (test code = 358) GLUCOSE RANDOM 103 mg/dL 70-105 (DIORAKER) (test code = 652) CALCIUM (DIORAKER) 8.9 mg/dL 8.4-10.2 (test code = 697) EGFR (MACRINA) (test 85 mL/min/1.73 ESTIMA EMIR GFR IS code = 1092) sq m NOT ACCURATE CREATININE CLEARANCE IN PREDICTING GLOMERULAR FILTRATION RATE . ESTIMATED GFR I S NOT APPLICABLE FOR DIALYSIS PATIEN TS. Rest Room Attendant ID - BRIAN MPOCT-GLUCOSE [id number] 18:11:00 Test Item Value Reference Range Interpretation Comments POC-GLUCOSE METER 80 mg/dL 70-110 : [facility] (test code = [facility] [place], 1538) 63517: Rest Room Attendant/Techni omid ID = [id number] for WILLIAM MAGANA SARS-COV2/RT-PCR ([facility])2020-01-02 14:35:00 Test Item Value Reference Range Interpretation Comments SARS-COV2/RT-PCR (test Not Detected Not Detected, Negative code = 0947714) SARS-COV-2 PERFORMING LAB [facility] (test code = 6611317) Negative results do not preclude SARS-CoV-2 infection and should not be used as the sole basis for patient management decisions. Negative results must be combined with clinical observations, patient history, and epidemiological information. A false negative result may occur if a specimen is improperly collected, transported or handled.The limit of detection for this assay is 250 copies/mL.This SARS CoV-2 test is a rapid, real-time RT-PCR test intended for the qualitative detection of nucleic acid from SARS-CoV-2 in a nasopharyngeal swab specimen collected from individuals suspected of COVID-19 by their healthcare provider.This test has not been Food and Drug Administration (FDA) cleared or approved and has been authorized by FDA under an Emergency Use Authorization (EUA). This EUA will be effective until the declaration that circumstances exist justifying the authorization of the emergency use of in vitro diagnostic tests for detection and/or diagnosis of COVID-19 is terminated under Section 564(b)(2) of the Act or the EUA is revoked under Section 564(g) of the Act.Fact Sheet for Healthcare Pro viders:https://www.[employer]/Documents/Xpert%20Xpress%20SARS%20CoV-2/Fact%20Sh eets/302-3802%29AVWR-ISR-0%20HEALTHCARE%20PROVIDERS%20FACT%20SHEET.pdfFact Sheet for Healthcare Patients:https://www.[employer]/Documents/Xpert%20Xpress%20SARS%20CoV-2/Fact%20Sheets/302-3801%20SARS-COV -2%20PATIENT%20FACT%20SHEET.pdfPerforming Laboratory:[facility], [place] [address]MT, SPINE, LUMBAR, WO [id number] 13:56:00FINAL REPORT CT, SPINE, LUMBAR, WO CONTRAST INDICATION: L2-3 disc herniation/surgical planning COMPARISON: None TECHNIQUE: Contiguous noncontrast axial images of the lumbar spineare obtained. Computer reformatted coronal and sagittal images are also provided. Axial images are av ailable in both bone and soft tissue algorithm. DOSE REDUCTION: Dose modulation, iterative reconstruction, and/or weight-based adjustment of the mA/kV was utilized to reduce the radiation dose to as low as reasonably achievable. FINDINGS: Exam is limited by low mlmxnp-qp-vtiav ratio due to patient body habitus. Nomenclature: L5-S1 is axial image 116. Alignment: Normal. Vertebrae: No acute fracture. No aggressive osseous lesions. Spondylosis: Large disc herniation at L2-3 is suboptimally evaluated byCT. There is likely at least moderate canal stenosis. Soft tissues: No acute abnormality. IMPRESSION :Preoperative planning exam. 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 Signed: Catherine Vaughan MDReport Verified Date/Time: 01/02/2020 13:56:46 RAD, CHEST, 1 VIEW, NON [id number] 12:49:00Reason for exam:- >preopShould this be performed at the bedside?->YesFINAL REPORT RAD, CHEST, 1 VIEW, NON DEPT CLINICAL INDICATION: preop TECHNIQUE : AP view of the chest COMPARISON: None FINDINGS: Contents retrocardiac opacity reflect atelectasis.Lungs are otherwise clear. No pleural effusion or pneumothorax. Cardiomediastinal silhouette, dariana, and pulmonary vasculature are normal. No acute osseous abnormality. IMPRESSION:Dense retrocardiac opacity likely reflects atelectasis. Otherwise no acute cardiopulmonary abnormality. Signed: Catherine Vaughan Verified Date/Time: 01/02/2020 12:49:44 /FREE T4 IF [id number] 12:14:00 Test Item Value Reference Range Interpretation Comments THYROID STIMULATING HORMONE 4.784 uIU/mL 0.350-4.940 (BEAKER) (test code = 772) Rest Room Attendant ID - RICHIE CVITAMIN D, [id number] 12:07:00 Test Item Value Reference Range Interpretation Comments VITAMIN D 25-OH (BEAKER) (test 10.1 ng/mL 6.6-49.9 code = 2764) Effective 05/08/2017: Reference Range ChangeNew: 6.6-49.9 ng/mL Previous: 13.0-47.8 ng/mLRecommended Vitamin D Target Range: 30.0-40.0 ng/mLOperator ID - [id number] 11:46:00 Test Item Value Reference Range Interpretation Comments PARTIAL THROMBOPLASTIN TIME 28.1 seconds 22.5-36.0 (BEAKER) (test code = 760) HEPATIC FUNCTION [id number] 08:59:00 Test Item Value Reference Range Interpretation Comments TOTAL PROTEIN (BEAKER) (test code = 5.8 gm/dL 6.0-8.3 L 770) ALBUMIN (BEAKER) (test code = 1145) 3.4 g/dL 3.5-5.0 L BILIRUBIN TOTAL (BEAKER) (test code 0.3 mg/dL 0.2-1.2 = 377) BILIRUBIN DIRECT (BEAKER) (test 0.2 mg/dL 0.1-0.5 code = 706) ALKALINE PHOSPHATASE (BEAKER) (test 46 U/L 40-150 code = 346) AST (SGOT) (BEAKER) (test code = 30 U/L 5-34 353) ALT (SGPT) (BEAKER) (test code = 15 U/L 6-55 347) Rest Room Attendant ID - RICHIE CPROTHROMBIN [id number] 08:53:00 Test Item Value Reference Range Interpretation Comments PROTIME (BEAKER) (test code = 13.5 seconds 11.9-14.2 759) INR (BEAKER) (test code = 370) 1.1 <=5.9 Effective 12/24/2018: PT Reference Range ChangeNew: 11.9-14.2 Previous: 11.7- 14.7RECOMMENDED COUMADIN/WARFARIN INR THERAPY RANGESSTANDARD DOSE: 2.0-3.0 Includes: PROPHYLAXIS for venous thrombosis, systemic embolization; TREATMENT for venous thrombosis and/or pulmonary embolus.HIGH RISK: Target INR is2.5-3.5 for patients wiht mechanical heart valves.BASIC METABOLIC [id number] 06:12:00 Test Item Value Reference Range Interpretation Comments SODIUM (BEAKER) 140 meq/L 136-145 (test code = 381) POTASSIUM (BEAKER) 3.6 meq/L 3.5-5.1 (test code = 379) CHLORIDE (BEAKER) 106 meq/L 98-107 (test code = 382) CO2 (BEAKER) (test 27 meq/L 22-29 code = 355) BLOOD UREA NITROGEN 19 mg/dL 7-21 (BEAKER) (test code = 354) CREATININE (BEAKER) 0.68 mg/dL 0.57-1.25 (test code = 358) GLUCOSE RANDOM 94 mg/dL 70-105 (BEAKER) (test code = 652) CALCIUM (BEAKER) 8.5 mg/dL 8.4-10.2 (test code = 697) EGFR (BEAKER) (test 84 mL/min/1.73 ESTIMA EMIR GFR IS code = 1092) sq m NOT ACCURATE CREATININE CLEARANCE IN PREDICTING GLOMERULAR FILTRATION RATE . ESTIMATED GFR I S NOT APPLICABLE FOR DIALYSIS PATIEN TS. Rest Room Attendant ID - ANEL WCBC W/PLT COUNT & AUTO [id number] 05:39:00 Test Item Value Reference Range Interpretation Comments WHITE BLOOD CELL COUNT (BEAKER) 6.4 K/ L 3.5-10.5 (test code = 775) RED BLOOD CELL COUNT (BEAKER) 3.93 M/ L 3.93-5.22 (test code = 761) HEMOGLOBIN (BEAKER) (test code = 10.1 GM/DL 11.2-15.7 L 410) HEMATOCRIT (BEAKER) (test code = 35.1 % 34.1-44.9 411) MEAN CORPUSCULAR VOLUME (BEAKER) 89.3 fL 79.4-94.8 (test code = 753) MEAN CORPUSCULAR HEMOGLOBIN 25.7 pg 25.6-32.2 (BEAKER) (test code = 751) MEAN CORPUSCULAR HEMOGLOBIN CONC 28.8 GM/DL 32.2-35.5 L (BEAKER) (test code = 752) RED CELL DISTRIBUTION WIDTH 22.0 % 11.7-14.4 H (BEAKER) (test code = 412) PLATELET COUNT (BEAKER) (test 193 K/CU MM 150-450 code = 756) MEAN PLATELET VOLUME (BEAKER) 12.4 fL 9.4-12.3 H (test code = 754) NUCLEATED RED BLOOD CELLS 0 /100 WBC 0-0 (BEAKER) (test code = 413) NEUTROPHILS RELATIVE PERCENT 67 % (BEAKER) (test code = 429) LYMPHOCYTES RELATIVE PERCENT 14 % (BEAKER) (test code = 430) MONOCYTES RELATIVE PERCENT 14 % (BEAKER) (test code = 431) EOSINOPHILS RELATIVE PERCENT 3 % (BEAKER) (test code = 432) BASOPHILS RELATIVE PERCENT 2 % (BEAKER) (test code = 437) NEUTROPHILS ABSOLUTE COUNT 4.29 K/ L 1.56-6.13 (BEAKER) (test code = 670) LYMPHOCYTES ABSOLUTE COUNT 0.90 K/ L 1.18-3.74 L (BEAKER) (test code = 414) MONOCYTES ABSOLUTE COUNT (BEAKER) 0.92 K/ L 0.24-0.36 H (test code = 415) EOSINOPHILS ABSOLUTE COUNT 0.16 K/ L 0.04-0.36 (BEAKER) (test code = 416) BASOPHILS ABSOLUTE COUNT (BEAKER) 0.12 K/ L 0.01-0.08 H (test code = 417) IMMATURE GRANULOCYTES-RELATIVE 0 % 0-1 PERCENT (BEAKER) (test code = 9781)
--- NOTE | 2021-06-17 20:41 | RAD REPORT ---
EXAM DESCRIPTION: RAD - Chest Single View - 06/17/2021 8:27 pm CLINICAL HISTORY: SWELLING Chest pain. COMPARISON: Chest Single View dated 01/01/2020; Chest Single View dated 11/18/2016; Chest Single View d ated 10/26/2016; Chest Single View dated 10/04/2016 FINDINGS: Portable technique limits examination quality. The lungs are grossly clear. The heart is normal in size. No displaced fractures. IMPRESSION: No acute intrathoracic process suspected.
[2021-06-17 21:03] LABS: Absolute Lymphocytes (CBC) 1.4 K/uL (0.7-4.9); Basophils % 0.8 % (0-1.3); Hematocrit 40.4 % (36.0-45.0); Lymphocytes % 13.9 % (15.3-44.8); MPV 9.6 fL (7.6-11.3); RBC Red Blood Cell Count 4.62 M/uL (3.86-4.86)
[2021-06-17 21:08] LABS: Protime INR 0.88
[2021-06-17 21:15] LABS: Albumin 2.6 g/dL (3.4-5.0); BUN Blood Urea Nitrogen 15 mg/dL (7-18); Bicarbonate 29 mmol/L (21-32); Glucose Level 144 mg/dL (74-106); Magnesium 1.9 mg/dL (1.8-2.4); Potassium 3.7 mmol/L (3.5-5.1); Sodium Level 142 mmol/L (136-145)
[2021-06-17 21:24] LABS: ALT/SGPT 15 U/L (12-78); AST/SGOT 15 U/L (15-37); Alkaline Phosphatase 107 U/L (45-117); Bilirubin Direct < 0.1 mg/dL (0-0.2); Bilirubin Total 0.2 mg/dL (0.2-1.0); NT PRO-BNP 158 pg/mL (<450); Protein, Total 6.2 g/dL (6.4-8.2); Troponin (Emerg Dept Use Only) < 0.02 ng/mL (0.0-0.045)
--- NOTE | 2021-06-18 00:05 | EDPHYS ---
Physician Documentation [facility] Name: Hanane Huizar Age: 81 yrs Sex: Female : 1940 Arrival Date: 06/17/2021 Time: 19:43 Bed 13 Private MD: ED Physician Rob Trejo HPI: 06/17 20:54 This 81 yrs old Female presents to ER via Unassigned with complaints of Edema. mh7 20:54 The patient presents with swelling. The complaints affect the left hand and left foot. mh7 Context: The problem was sustained at a fci or assisted living facility, resulted from an unknown cause, the patient is not able to bear weight, the patient is not able to ambulate, Problem is a result from a previous injury: No. Onset: The symptoms/episode began/occurred at an unknown time. Modifying factors: The symptoms are alleviated by nothing. the symptoms are aggravated by nothing. Associated signs and symptoms: Pertinent negatives calf tenderness, fever, nausea, numbness, rash, tingling, vomiting, warmth, weakness. Treatment prior to arrival includes: no previous treatment. Severity of symptoms: At their worst the symptoms were moderate, earlier today, in the emergency department the symptoms are unchanged. According to patient's daughter she has had increased swelling of left foot and left hand that she noticed today. She states patient has had some mild swelling of both areas when last seen a week ago. Patient denies any injuries. She denies any chest pain, shortness of breath, fever, nausea, vomiting, numbness/tingling, or weakness.. Historical: - Home Meds: 20:00 benazepril 40 mg Oral tab 1 tab once daily [Active]; duloxetine Oral [Active]; mr2 hydrocodone-acetaminophen 5-325 mg Oral tab 1 tab every 12 hours [Active]; Hydrochlorothiazide Oral [Active]; - PMHx: 20:00 Arthritis; Hyperlipidemia; Hypertension; Hypothyroidism; spinal stenosis; mr2 - Immunization history:: Adult Immunizations up to date. - Social history:: Smoking status: Patient denies any tobacco usage or history of. ROS: 20:54 Constitutional: Negative for fever, chills, and weight loss, Eyes: Negative for injury, mh7 pain, redness, and discharge, ENT: Negative for injury, pain, and discharge, Neck: Negative for injury, pain, and swelling, Cardiovascular: Negative for chest pain, palpitations, and edema, Respiratory: Negative for shortness of breath, cough, wheezing, and pleuritic chest pain, Abdomen/GI: Negative for abdominal pain, nausea, vomiting, diarrhea, and constipation, Back: Negative for injury and pain, : Negative for injury, bleeding, discharge, and swelling, Skin: Negative for injury, rash, and discoloration, Neuro: Negative for headache, weakness, numbness, tingling, and seizure, Psych: Negative for depression, anxiety, suicide ideation, homicidal ideation, and hallucinations, Allergy/Immunology: Negative for hives, rash, and allergies, Endocrine: Negative for neck swelling, polydipsia, polyuria, polyphagia, and marked weight changes, Hematologic/Lymphatic: Negative for swollen nodes, abnormal bleeding, and unusual bruising. Exam: 20:54 Constitutional: This is a well developed, well nourished patient who is awake, alert, mh7 and in no acute distress. Head/Face: Normocephalic, atraumatic. Eyes: Pupils equal round and reactive to light, extra-ocular motions intact. Lids and lashes normal. Conjunctiva and sclera are non-icteric and not injected. Cornea within normal limits. Periorbital areas with no swelling, redness, or edema. Neck: Trachea midline, no thyromegaly or masses palpated, and no cervical lymphadenopathy. Supple, full range of motion without nuchal rigidity, or vertebral point tenderness. No Meningismus. Chest/axilla: Normal chest wall appearance and motion. Nontender with no deformity. No lesions are appreciated. Cardiovascular: Regular rate and rhythm with a normal S1 and S2. No gallops, murmurs, or rubs. Normal PMI, no JVD. No pulse deficits. 20:54 Abdomen/GI: Soft, non-tender, with normal bowel sounds. No distension or tympany. No guarding or rebound. No evidence of tenderness throughout. Back: No spinal tenderness. No costovertebral tenderness. Full range of motion. 20:54 Skin: Warm, dry with normal turgor. Normal color with no rashes, no lesions, and no evidence of cellulitis. 20:54 Psych: Awake, alert, with orientation to person, place and time. Behavior, mood, and affect are within normal limits. 20:54 Respiratory: the patient does not display signs of respiratory distress, Respirations: normal, Breath sounds: rhonchi, that are mild, are scattered, Respiratory rate: 20 20:54 Musculoskeletal/extremity: Extremities: noted in the left hand and left foot: swelling, ROM: no acute changes, Circulation is intact in all extremities. Sensation intact. Compartment Syndrome exam of affected extremity: is normal. no pain, no numbness, no tingling, no sensation deficit, no palor, no weak pulses, Joints: All joints appear normal with full range of motion. Weight bearing: is unable to bear weight, Tendon exam: specific tendon testing normal through active and passive range of motion Calves: are non-tender, are not equal in size: left is larger than right. 20:54 Neuro: Orientation: is normal, Mentation: is normal, Memory: is normal, Cranial nerves: grossly normal, Cerebellar function: is grossly normal, Motor: moves all fours, Sensation: is normal, Gait: not tested. seizure activity, is not displayed by the patient, Abnormal movements: there are no abnormal movements. Vital Signs: 19:54 BP 121 / 56; Pulse 70; Resp 20; Temp 98.0(O); Pulse Ox 92% on R/A; oe 06/18 00:15 BP 142 / 68; Pulse 64; Resp 18; Temp 98.4; Pulse Ox 97% on R/A; Weight 136.08 kg; mr2 Height 5 ft. 4 in. (162.56 cm); Pain 08/07; 00:15 Body Mass Index 51.49 (136.08 kg, 162.56 cm) mr2 MDM: 00:00 Differential diagnosis: closed fracture, contusion, abrasion, CHF, peripheral edema, mh7 DVT. Data reviewed: vital signs, nurses notes, fci records, old medical records, lab test result(s), cardiac enzymes, CBC, electrolytes, EKG, radiologic studies, plain films, ultrasound. Counseling: I had a detailed discussion with the patient and/or guardian regarding: the historical points, exam findings, and any diagnostic results supporting the discharge/admit diagnosis, lab results, radiology results, the need for outpatient follow up, to return to the emergency department if symptoms worsen or persist or if there are any questions or concerns that arise at home. Response to treatment: the patient's symptoms have markedly improved after treatment. ED course: Well-appearing, no acute distress, vital signs stable, no focal deficits. Discussed all test results and findings with the patient and her family. She denies any complaints. She noted that she has had this swelling for a long time intermittently and was on medication in the past for this. Patient request to be discharged back to nursing facility at this time.. 00:04 Patient medically screened. [facility] 06/17 20:08 Order name: Basic Metabolic Panel; Complete Time: 21:30 [facility] 06/17 20:08 Order name: CBC with Diff; Complete Time: 21:11 [facility] 06/17 20:08 Order name: LFT's; Complete Time: 21:30 [facility] 06/17 20:08 Order name: Magnesium; Complete Time: 21:30 [facility] 06/17 20:08 Order name: NT PRO-BNP; Complete Time: 21:30 [facility] 06/17 20:08 Order name: PT-INR; Complete Time: 21:11 [facility] 06/17 20:08 Order name: Troponin (emerg Dept Use Only); Complete Time: 21:30 [facility] 06/17 20:08 Order name: XRAY Chest (1 view); Complete Time: 21:11 [facility] 06/17 20:08 Order name: EKG; Complete Time: 20:10 [facility] 06/17 20:08 Order name: Cardiac monitoring; Complete Time: 20:14 [facility] 06/17 20:09 Order name: US Extremity Venous Unilateral Ltd [facility] 06/17 20:31 Order name: UPPER EXTREMITY VENOUS UNILATE [facility] 06/17 21:12 Order name: Foot Left 3 View XRAY [facility] 06/17 21:12 Order name: Hand Left 3 View XRAY [facility] 06/17 20:08 Order name: EKG - Nurse/Tech; Complete Time: 20:14 [facility] 06/17 20:08 Order name: IV Saline Lock; Complete Time: 20:14 [facility] 06/17 20:08 Order name: Labs collected and sent; Complete Time: 20:14 [facility] 06/17 20:08 Order name: O2 Per Protocol; Complete Time: 20:14 [facility] 06/17 20:08 Order name: O2 Sat Monitoring; Complete Time: 20:14 [facility] Administered Medications: No medications were administered Disposition Summary: 06/18/21 00:04 Discharge Ordered Location: Home [facility] Problem: chronic [facility] Symptoms: have improved [facility] Condition: Stable [facility] Diagnosis - Peripheral edema [facility] Followup: [facility] - With: Private Physician - When: 1 - 2 days - Reason: Worsening of condition, Recheck today's complaints, Continuance of care, Re-evaluation by your physician Discharge Instructions: - Discharge Summary Sheet [facility] - Edema, [id number] [facility] Forms: - Medication Reconciliation Form [facility] - Thank You Letter [facility] - Antibiotic Education [facility] - Prescription Opioid Use [facility] Signatures: Dispatcher [employer] Rob Rogel MD MD 7 Tin Abarca RN RN mr2
--- NOTE | 2021-06-18 00:05 | ER ---
Nurse's Notes [facility] Name: Hanane Huizar Age: 81 yrs Sex: Female : 1940 Arrival Date: 06/17/2021 Time: 19:43 Bed 13 Private MD: Diagnosis: Peripheral edema Presentation: 06/17 20:00 Chief complaint: Patient states: she has been having edema of the l arm and l leg for mr2 the past few weeks. denies cp, sob. Coronavirus screen: Vaccine status: Patient reports receiving the 2nd dose of the covid vaccine. Ebola Screen: No symptoms or risks identified at this time. Initial Sepsis Screen: Does the patient meet any 2 criteria? No. Patient's initial sepsis screen is negative. Does the patient have a suspected source of infection? No. Patient's initial sepsis screen is negative. Risk Assessment: Do you want to hurt yourself or someone else? Patient reports no desire to harm self or others. Onset of symptoms was May 29, 2021. 20:00 Method Of Arrival: EMS: [facility] mr2 20:00 Acuity: ROSEMARY 3 mr2 Triage Assessment: 20:00 General: Appears in no apparent distress. comfortable. General: Behavior is calm, mr2 cooperative. Pain: Denies pain. Historical: - Home Meds: 20:00 benazepril 40 mg Oral tab 1 tab once daily [Active]; duloxetine Oral [Active]; mr2 hydrocodone-acetaminophen 5-325 mg Oral tab 1 tab every 12 hours [Active]; Hydrochlorothiazide Oral [Active]; - PMHx: 20:00 Arthritis; Hyperlipidemia; Hypertension; Hypothyroidism; spinal stenosis; mr2 - Immunization history:: Adult Immunizations up to date. - Social history:: Smoking status: Patient denies any tobacco usage or history of. Screenin:00 Abuse screen: Denies threats or abuse. Denies injuries from another. Nutritional mr2 screening: No deficits noted. Tuberculosis screening: No symptoms or risk factors identified. Fall Risk IV access (20 points). Gait- Impaired (20 pts.). Assessment: 20:00 Musculoskeletal: Swelling present in left arm and left leg. mr2 Vital Signs: 19:54 BP 121 / 56; Pulse 70; Resp 20; Temp 98.0(O); Pulse Ox 92% on R/A; oe 11/21 00:15 BP 142 / 68; Pulse 64; Resp 18; Temp 98.4; Pulse Ox 97% on R/A; Weight 136.08 kg; mr2 Height 5 ft. 4 in. (162.56 cm); Pain 08/07; 00:15 Body Mass Index 51.49 (136.08 kg, 162.56 cm) mr2 ED Course: 06/17 19:43 Patient arrived in ED. 19:50 Rob Trejo MD is Attending Physician. [facility] 20:00 No provider procedures requiring assistance completed. Inserted saline lock: 20 gauge mr2 in right forearm, using aseptic technique. 20:00 Arm band placed on. mr2 20:00 Bed in low position. Side rails up X2. mr2 20:14 Tin Abarca, RN is Primary Nurse. mr2 20:14 Basic Metabolic Panel Sent. mr2 20:14 CBC with Diff Sent. mr2 20:14 LFT's Sent. mr2 20:14 Magnesium Sent. mr2 20:14 NT PRO-BNP Sent. mr2 20:14 PT-INR Sent. mr2 20:14 Troponin (emerg Dept Use Only) Sent. mr2 20:27 XRAY Chest (1 view) In Process Unspecified. EDMS 22:27 US Extremity Venous Unilateral Ltd In Process Unspecified. EDMS 22:27 UPPER EXTREMITY VENOUS UNILATE In Process Unspecified. EDMS 22:45 Foot Left 3 View XRAY In Process Unspecified. EDMS 22:45 Hand Left 3 View XRAY In Process Unspecified. EDMS 06/18 01:08 Triage completed. mr2 Administered Medications: No medications were administered Outcome: 00:04 Discharge ordered by . Erin 00:30 Discharged to home via ambulance. mr2 00:30 Condition: stable 00:30 Discharge instructions given to patient, Instructed on discharge instructions, follow up and referral plans. 01:08 Patient left the ED. bb Signatures: Dispatcher [employer] EDMS Rizwana Estrada, RN RN Azar Carrillo Maurice, MD MD mh7 Marsh, Wendy Tin Abarca, RN RN mr2 Corrections: (The following items were deleted from the chart) 01:12 01:11 Musculoskeletal: Swelling present in left arm and left leg mr2 mr2
[2021-06-18 01:21] VITALS: BP 121/56; TEMP 98; O2SAT 92
--- NOTE | 2021-06-18 07:44 | RAD REPORT ---
EXAM DESCRIPTION: US - Extremity Venous Uni Ltd - 06/17/2021 10:27 pm CLINICAL HISTORY: SWELLINGof the left leg Preliminary findings provided at the time of the study. COMPARISON: None. TECHNIQUE: Real-time sonographic evaluation of the left lower extremity deep venous system was perfo rmed. FINDINGS: Normal compressibility, flow augmentation, phasic flow and spontaneous flow are identified in the left lower extremity common femoral, superficial femoral, popliteal and posterior tibial vein s. No intraluminal filling defects seen. IMPRESSION: No DVT in the left lower extremity.
--- NOTE | 2021-06-18 07:45 | RAD REPORT ---
EXAM DESCRIPTION: US - UPPER EXTREMITY VENOUS UNILATE - 06/17/2021 10:27 pm CLINICAL HISTORY: Left arm pain and swelling Preliminary findings provided at the time of the study. COMPARISON: None. TECHNIQUE: Real-time sonographic evaluation of the left upper extremity deep venous systems was perf ormed. FINDINGS: Normal compressibility, flow augmentation, phasic flow and spontaneous flow are identified in the left upper extremity deep venous system. No intraluminal filling defects seen. Internal jugul ar and subclavian veins are normal as well. Exam was technically limited due to large body habitus and patient's limited range of motion. IMPRESSION: No DVT identifiable in the left upper extremity.
--- NOTE | 2021-06-18 15:24 | RAD REPORT ---
EXAM DESCRIPTION: RAD - Hand Left 3 View - 06/17/2021 10:45 pm CLINICAL HISTORY: 81 years Female SWELLING COMPARISON: None TECHNIQUE: Four images of the left hand were obtained. FINDINGS: No acute fractures seen. Soft tissue swelling in region of the metacarpals. Degenerative changes DIP joints and PIP joints second, third, fourth, fifth fingers as well as the in terphalangeal joint of thumb. Mild bony demineralization. Well-circumscribed bone density ulna styloid likely related to more remot e trauma. Additional degenerative changes distal radius and ulna. No cortical disruption. No abnormal periosteal reaction. IMPRESSION: No acute fracture or dislocation seen. Moderate osteoarthritic change. Soft tissue swell ing in region of the metacarpals. Electronically signed by: Medina Villalobos MD 06/17/2021 11:19 PM CONCRETE FORM SETTER Due to temporary technical issues with the PACS/Fluency reporting system, reports are being signed by the in house radiologists without review as a courtesy to insure prompt reporting. The interpreting radiologist is fully responsible for the content of the report.
--- NOTE | 2021-06-18 15:36 | RAD REPORT ---
EXAM DESCRIPTION: RAD - Foot Left 3 View - 06/17/2021 10:45 pm CLINICAL HISTORY: SWELLING. COMPARISON: None. TECHNIQUE: Three views of the left foot were obtained: AP, oblique, and lateral radiographs. FINDINGS: No acute osseous abnormality. Lisfranc joint alignment is grossly maintained. Osteopenia a nd diffuse bony heterogeneity. Prominent soft tissue swelling along the dorsum of the foot. Chronic p lantar fascial enthesophyte. Mild hallux valgus. Mild to moderate multifocal degenerative changes IMPRESSION: 1. Prominent soft tissue swelling along the dorsum of the foot. No acute osseous abnor mality identified. 2. Osteopenia and diffuse bony heterogeneity, nonspecific. 3. Mild to moderate degenerative changes. Electronically signed by: Tiffanie Arauz MD 06/17/2021 11:15 PM KENO ATTENDANT Due to temporary technical issues with the PACS/Fluency reporting system, reports are being signed by the in house radiologists without review as a courtesy to insure prompt reporting. The interpreting radiologist is fully responsible for the content of the report.
--- NOTE | 2021-06-21 08:14 | EKG ---
Test Date: 2021-06-17 Test Time: 22:44:47 [place] Hand: RICHARD MEASUREMENT RESULTS: Intervals: Rate: 66 [place]: QRSD: 118 QT: 392 QTc: 410 [place]: P: [place]: QRS: -58 T: -15 INTERPRETIVE STATEMENTS: Accelerated Junctional rhythm Left axis deviation Incomplete right bundle branch block Inferior infarct, age undetermined Possible Anterolateral infarct, age undetermined Abnormal ECG Compared to ECG 11/18/2016 06:17:35 Accelerated junctional rhythm now present Incomplete right bundle-branch block now present Myocardial infarct finding now present Sinus rhythm no longer present Right bundle-branch block no longer present Electronically Signed On 06-21-21 08:04:30 [employer] BLOCKER by Justen Andres
== END 2021-06-18 01:08 | disposition home or self-care (01) ==
LOC: ER 19:42
DX: R60.9 Edema, unspecified (principal); I10 Essential (primary) hypertension; E78.5 Hyperlipidemia, unspecified; E03.9 Hypothyroidism, unspecified
CPT/HCPCS: 36415; 71045; 80048; 80076; 83735; 83880; 84484; 85025; 85610; 93005; 93971; 99284

== ENCOUNTER 2022-04-13 19:21 | Inpatient (IN) | payer OTHER, SELFPAY ==
--- OUTSIDE RECORDS SUMMARY | 2022-04-13 19:26 | XMS REPORT | Continuity of Care Document ---
:1940 Author Organization [facility] t Address [address] [place] [address] Care Team Providers Name Role Phone Asked, No Pcp Primary Care Physician Unavailable Maurice [place] Attending Clinician Unavailable PATRICIA SU Attending Clinician Unavailable Tho Garcia Attending Clinician PATRICIA SU Admitting Clinician Unavailable BROOKE MAHARAJ Admitting Clinician Unavailable Problems Condition Condition Condition Status Onset Resolution Last Treating Co mments Source Name Details Category Date Date Treatment Clinician Date Spinal Spinal Disease Active [facility]05 [facility] lumbar [facility]: Medi crispin region region 00 Center Status Status Problem Active Common post total post total Sp franklyn right knee right knee - [facility] replacemen replacemen [facility] Bilateral Bilateral Problem Active Com mon lower lower Spirit extremity extremity - CH I edema edema [facility] Gastro-eso Gastro-eso Problem Active C ommon phageal phageal Spirit reflux reflux - [facility] disease disease [facility] without without [facility] esophagiti esophagiti Pa dical s s Center Gout Gout Problem Active Common [facility] Hypokalemi Hypokalemi Problem Active C ommon a a [facility] Constipati Constipati Problem Active C ommon on on [facility] Hyperlipid Hyperlipid Problem Active C ommon emia emia [facility] Hypertensi Hypertensi Problem Active C ommon on on Spirit [facility] Rheumatoid Rheumatoid Problem Active Anthony andrews arthritis arthritis Spir it - [facility] Chronic Chronic Problem Active Common kidney kidney Spirit disease disease [facility] Prediabete Prediabete Problem Active Anthony andrews s s [facility] Hypothyroi Hypothyroi Problem Active Anthony andrews dism dism [facility] Osteoarthr Osteoarthr Problem Active Anthony andrews itis of itis of [facility] multiple multiple [facility] joints joints [facility] Pain in Pain in Problem Active Common right foot right foot Sp franklyn - [facility] Degenerati Degenerati Problem Active Anthony andrews ve joint ve joint Spirit disease disease - [facility] Restless Restless Problem Active Commo n legs legs Spirit syndrome syndrome - [facility] Pain in Pain in Problem Active Common left ankle left ankle Sp franklyn and joints and joints - [facility] of left of left foot [facility] Stasis Stasis Problem Active Common dermatitis dermatitis Sp franklyn [facility] Urinary Urinary Problem Active Common incontinen incontinen Sp franklyn ce, ce, - [facility] unspecifie unspecifie St d type d [facility] Balance Balance Problem Active Common problem problem [facility] Functional Functional Problem Active Anthony andrews incontinen incontinen Sp franklyn ce ce [facility] Anemia, Anemia, Problem Active Common unspecifie unspecifie Sp franklyn d type d type [facility] Iron Iron Problem Active Common deficiency deficiency Sp franklyn anemia, anemia, - [facility] unspecifie unspecifie d iron d iron 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 Sp franklyn athy athy [facility] Hyperlipid Hyperlipi Problem Active 2019-10-17 Memoria emia demia 21:49:45 l (disorder) (disorder) He rmann Active Problem 10/17/2019 [facility] Hypertensi Problem Active 2019-10-17 M emoria ve Hypertensi 21:49:45 l disorder, ve Marlon systemic disorder, arterial systemic (disorder) arterial (disorder) Active Problem 10/17/2019 [facility] Hypothyroi Hypothyro Problem Active 2019-10-17 Memoria dism idism 21:49:45 l (disorder) (disorder) Daniel rmann Active Problem 10/17/2019 [facility] Localized Localized Problem Active 2019-10-17 Memoria edema edema 21:49:45 l (finding) (finding) Starla ayde Active Problem 10/17/2019 [facility] Lumbar Lumbar Problem Active 2019-10-17 Jai annabelle radiculopa radiculopa 21:49:45 l thy thy [place] (disorder) (disorder) Active Problem 10/17/2019 [facility] Morbid Morbid Problem Active 2019-10-17 Jai annabelle obesity obesity 21:49:45 l (disorder) (disorder) He rmann Active Problem 10/17/2019 [facility] Muscle Muscle Problem Active 2019-10-17 Jai annabelle pain pain 21:49:45 l (finding) (finding) Starla ayde Active Problem 10/17/2019 [facility] Peripheral Periphera Problem Active 2019-10-17 Memoria nerve l nerve 21:49:45 l disease disease Marlon (disorder) (disorder) Active Problem 10/17/2019 [facility] Thiamin Thiamin Problem Active 2019-10-17 Me moria deficiency deficiency 21:49:45 l (disorder) (disorder) He rmann Active Problem 10/17/2019 [facility] Allergies, Adverse Reactions, Alerts Allergy Allergy Status Severity Reaction(s) Onset Inactive Treating Comm ents Source Name Type Date Date Clinician NO KNOWN Allergy Active [facility] Social History Social Habit Start Date Stop Date Quantity Comments Source History SDOH [facility] Alcohol Std Drinks Medica l Center History SDDE [facility] Alcohol Binge Medical Leif ter History SDDE [facility] Alcohol Comment Medical C enter Alcohol intake 2020-01-04 2020-01-[address] [facility] 00:00:00 00:00:00 non-drinker of Medical Ce nter alcohol (finding) Tobacco use and 2020-01-02 2020-01-[address] Maisha kes exposure 00:00:00 00:00:00 Medical Center History SDOH 2020-01-02 2020-01-[address] [facility] Alcohol Frequency 00:00:00 00:00:00 Medical Center Social History 2018-09-10 2018-09-10 [facility] rodolfo 17:28:20 17:28:20 Sex [birth year] At [birth year] Hindu 00:00:00 00:00:00 Hospital Smoking Status Start Date Stop Date Source Tobacco smoking consumption unknown [facility] Never smoker [facility] Medications Ordered Filled Start Stop Current Ordering Indication Dosage Frequency Signature Comments Components Source Medication Medication Date Date Medication? Clinician (SIG) Name Name benazepriL 2020-0 Yes 40mg QD Take [address] (LOTENSIN) 6-18 by mouth [facility] 40 MG 13:34: daily. Medical tablet [address] [place] [address] gabapentin 2020-0 Yes 600mg [id number] Take [address] (NEURONTIN) 6-18 [id number] mg by L ukes 600 MG 13:34: 3D mouth 3 Medical tablet 32 (three) Center times daily. lansoprazol 2020-0 Yes 30mg QD Take [address] e 6-18 by mouth [facility]ukes (PREVACID) 13:34: daily. Medic al [address] [place] [address] capsule pravastatin 2019-0 Yes 20mg QD Take [address] (PRAVACHOL) 6-18 by mouth Luke s 20 MG 13:34: daily. Medical tablet [address] [place] [address] mirabegron 2020-0 Yes Take by [facility] (MYRBETRIQ 6-18 mouth. [facility]ukes ORAL) 13:34: [address] zinc 2020-0 Yes 1g Q.5D Apply [address] oxide-serg 6-12 topically Martin es latum 00:00: 2 (two) Medical (CRITIC-AID 00 times Center ) 20-51 % daily. Pste topical paste Slow Slow 2019-0 Yes Maurice 1 tablet Common Release Release 4-23 [place] Spirit Iron Iron 00:00: - [facility] [address] [place] [address] thiamine 2018-1 Yes 100 mg = 1 Mem oria 100 mg oral 0-10 tab, PO, l tablet 13:09: Daily, X Marlon 00 60 day, # 60 tab, 2 Refill(s), Pharmacy: [id number] duloxetine 2018-0 Yes 30 mg = 1 Me moria 30 MG 6-18 cap, PO, l Enteric 19:19: Daily, # Andrea n Coated 00 30 cap, 3 Capsule Refill(s), [Cymbalta] Pharmacy: [id number] duloxetine 2018-0 Yes 20 mg = 1 Me moria 20 MG 4-16 cap, PO, l Enteric 19:41: Daily, # Andrea n Coated 00 30 cap, 3 Capsule Refill(s), [Cymbalta] Pharmacy: [id number] tramadol 2019-0 Yes 50 mg = 1 Jai annabelle hydrochlori 4-16 tab, PO, l de 50 MG 19:40: TID, 0 [place] Oral Tablet 00 Refill(s) Levothyroxi Levothyroxi Yes Maurice 1 tablet Common ne Sodium ne Sodium [place] on an Spi rit empty - [facility] stomach in [facility] Prevacid Prevacid Yes Maurice 1 capsule [place] [facility] [place] Yes Maurice not [place] defined [facility] Align Align Yes Maurice not Common [place] defined [facility] Voltaren Voltaren Yes Maurice apply to C ommon [place] [facility] Yes Maurice not Common Silver [place] defined [facility] B1 Natural B1 Natural Yes Maurice as C ommon [place] directed [facility] Prevacid Prevacid Yes Maurice TAKE 1 Com mon [place] CAPSULE Spirit ONCE DAILY [facility] Benazepril Benazepril Yes Maurice TAKE 1 Common HCl HCl Hills TABLET Spirit ONCE DAILY [facility] Gabapentin Gabapentin Yes Maurice 1 tablet [place] [facility] MiraLax MiraLax Yes Maurice 17 gram Comm on Hills [facility] Tramadol Tramadol Yes Maurice 1 tablet C ommon HCl HCl [place] as needed [facility] Plaquenil Plaquenil Yes Maurice 1 tablet [place] with food Spirit or milk [facility] Tricor Tricor Yes Maurice TAKE 1 [place] TABLET Spirit DAILY WITH - [facility] FOOD [facility] Benazepril Benazepril Yes Maurice 1 tablet Common HCl HCl Hills [facility] Hydrocodone Hydrocodone Yes Maurice 1 tablet Common -Acetaminop -Acetaminop [place] as needed [facility] hen hen [facility] Pravastatin Pravastatin Yes Maurice TAKE 1 Common Sodium Sodium [place] TABLET Spirit ONCE DAILY - [facility] Allopurinol Allopurinol Yes Maurice 2 tablet [place] [facility] Lasix Lasix Yes Maurice 1 tablet [place] [facility] Linzess Linzess Yes Maurice 1 capsule Co mmon Hills [facility] Fish Oil Fish Oil Yes Maurice not Commo n Hills defined [facility] Neurontin Neurontin Yes Maurice 1 capsule Common [place] [facility] Klor-Con 10 Klor-Con 10 Yes Maurice 1 tablet [place] with food [facility] Duloxetine Duloxetine Yes Maurice 1 capsule Common HCl HCl Hills [facility] Immunizations Ordered Immunization Filled Immunization Date Status Commen ts Source Name Name FluAD FluAD 2019-04-17 Completed [facility] 00:00:00 [facility] FluAD FluAD 2019-04-17 Completed [facility] 00:00:00 [facility] Vital Signs Vital Name Observation Time Observation Value Comments Source HEIGHT 2020-01-01 00:00:00 172.7 cm WEIGHT 2020-01-01 00:00:00 145 kg HEIGHT 2020-01-01 00:00:00 172.7 cm WEIGHT 2020-01-01 00:00:00 145 kg Systolic (mm Hg) 2019-06-18 21:30:00 Jai garcia Marlon Diastolic (mm Hg) 2019-06-18 21:30:00 [facility] orial Marlon Heart Rate 2019-06-18 21:30:[address] [facility] [place] Respitory Rate 2019-06-18 21:30:00 Sandra al [place] Height 2019-06-18 21:30:00 172.72 cm [facility] Weight 2019-06-18 21:30:00 [facility] BMI Calculated 2019-06-18 21:30:00 Sandra al [place] Systolic (mm Hg) 2019-04-23 15:43:00 Jai rial [place] Diastolic (mm Hg) 2019-04-23 15:43:00 Mem orial [place] Heart Rate 2019-04-23 15:43:[address] [facility] [place] Respitory Rate 2019-04-23 15:43:00 Memmaribel al [place] Height 2019-04-23 15:43:00 172.72 cm [facility] [place] Weight 2019-04-23 15:43:00 [facility] [place] BMI Calculated 2019-04-23 15:43:00 Memori al [place] Weight 2019-01-13 18:46:00 [facility] [place] BMI Calculated 2019-01-13 18:46:00 Memori al [place] Height 2019-01-13 18:46:00 172.72 cm [facility] [place] Heart Rate 2019-01-13 18:46:00 [facility] [place] Respitory Rate 2019-01-13 18:46:00 Memori al [place] Systolic (mm Hg) 2019-01-13 18:46:00 Jai rial [place] Diastolic (mm Hg) 2019-01-13 18:46:00 Mem orial Marlon BMI Calculated 2018-11-11 19:15:00 Memori al [place] Heart Rate 2018-11-11 19:15:00 [facility] [place] Respitory Rate 2018-11-11 19:15:00 Memori al [place] Weight 2018-11-11 19:15:00 [facility] [place] Height 2018-11-11 19:15:00 172.72 cm [facility] [place] Systolic (mm Hg) 2018-11-11 19:15:00 Jai rial [place] Diastolic (mm Hg) 2018-11-11 19:15:00 Mem orial Marlon Procedures Procedure Date / Time Performed Performing Clinician [facility] Knee replacement [facility] Andrea n Plan of Care Planned Activity Planned Date Details Comments Source Future Scheduled 2022-03-29 HEPATITIS B VACCINES Met [facility] Test 01:32:44 (1 of 3 - 3-dose series) [code = HEPATITIS B VACCINES (1 of 3 - 3-dose series)] Future Scheduled 2022-03-29 COVID-19 VACCINE (#1) [facility] Test 01:32:44 [code = COVID-19 VACCINE (#1)] Future Scheduled 2022-03-29 SHINGLES VACCINES (1 Met [facility] Test 01:32:44 of 2) [code = SHINGLES VACCINES (1 of 2)] Future Scheduled 2022-03-29 65+ [facility] 01:32:44 VACCINE (1 - PCV) [code = 65+ PNEUMOCOCCAL VACCINE (1 - PCV)] Future Scheduled 2022-03-29 INFLUENZA VACCINE Method [facility] Hospital Test 01:32:44 [code = INFLUENZA VACCINE] Future Scheduled 2022-03-29 INFLUENZA VACCINE (#1[facility] Test 00:00:00 [code = INFLUENZA Medical Ce nter VACCINE (#1)] Future Scheduled 2021-07-[address] [facility] Test 00:00:00 (12+) [code = Medical Center DEPRESSION SCREENING (12+)] Future Scheduled 2021-07-29 FALLS RISK SCREENING [facility] Test 00:00:00 [code = FALLS RISK Medical C enter SCREENING] Future Scheduled 2020-07-[address] [facility] Test 00:00:00 WELLNESS (YEAR 2 or Medical Center FIRST YEAR if no IPPE) [code = MEDICARE ANNUAL WELLNESS (YEAR 2 or FIRST YEAR if no IPPE)] Future Scheduled 2007 PNEUMOCOCCAL 65+ YRS [facility] Test 00:00:00 (1 - PCV) [code = Medical Ce nter PNEUMOCOCCAL 65+ YRS (1 - PCV)] Future Scheduled 1992 SHINGLES VACCINES ([address] [facility] Test 00:00:00 of 2) [code = SHINGLES Medic al Center VACCINES (1 of 2)] Future Scheduled 1961 DTAP/TDAP/TD VACCINES [facility] Test 00:00:00 (1 - Tdap) [code = Medical C enter DTAP/TDAP/TD VACCINES (1 - Tdap)] Future Scheduled 1960 HEPATITIS C SCREENING [facility] Test 00:00:00 [code = HEPATITIS C Medical Center SCREENING] Future Scheduled 1942 COVID-19 VACCINE (#1) [facility] Test 00:00:00 [code = COVID-[address] VACCINE (#1)] Future Scheduled 1940 DXA SCAN [code = DXA [facility] Test 00:00:00 SCAN] Medical Center Encounters Start End Encounter Admission Attending Care Care Encounter Source Date/Time Date/Time Type Type Clinicians Facility Department ID 2021-08-23 Outpatient [place], [facility] [id number] Common 11:18:47 Maurice [id number] [facility] 2021-08-23 Outpatient Reinier [facility] [id number] Common 11:18:31 Maurice [id number] [facility] 2020-01-01 Inpatient ER CHANGEPR, [facility] Neurosurger [id number] [facility] 23:22:00 PATRICIA de leon 2020-01-01 2020-01-01 [facility] [id number] Common 13:28:00 13:28:00 t [facility] Spir it Road [facility] 2019-12-14 2019-12-14 [facility] [id number] Common 09:21:00 09:21:[address] [facility] 2019-11-19 2019-11-19 [facility] [id number] Common 09:45:00 09:45:[address] [facility] 2019-11-18 2019-11-18 [facility] [id number] Common 10:34:00 10:34:[address] [facility] 2019-10-19 2019-10-19 [facility] [id number] Common 11:41:00 11:41:[address] [facility] 2019-10-15 2019-10-15 Ambulatory nullFlavo MNA [id number] [facility] 18:30:00 18:30:00 Pre-Reg r Neurology 09 l Adali Mason 2019-10-15 2019-10-15 Outpatient MHIE IE [id number] [facility] 13:30:00 13:30:00 09 carlos Mason 2019-10-15 2019-10-15 Outpatient VARSHA GarciaMISCHER MHMISCHER [id number] 13:30:00 13:30:00 Tho 09 Edgar 2019-09-28 2019-09-28 [facility] [id number] Common 15:31:00 15:31:[address] [facility] 2019-07-28 2019-07-28 [facility] [id number] Common 10:00:00 10:00:00 t Specialty/U Sp franklyn Specialty rology - [facility] 2019-07-21 2019-07-21 [facility] [id number] Common 10:00:00 10:00:[address] [facility] 2019-07-14 2019-07-14 [facility] [id number] Common 09:34:00 09:34:[address] [facility] 2019-07-03 2019-07-03 [facility] [id number] Common 11:52:00 11:52:[address] [facility] 2019-06-18 2019-06-19 Outpatient nullFlavo MNA [id number] Memoria 20:45:00 05:59:59 r Neurology 08 l Adali Marlon 2019-06-18 2019-06-18 Outpatient HAROON GarciaSCHMINE MADDOXMISCHER [id number] 14:45:00 23:59:59 Tho Sia Edgar 2019-06-18 2019-06-18 Ambulatory nullFlavo MNA [id number] [facility] 17:15:00 17:15:00 Pre-Reg r Neurology 07 l Adali Mason 2019-06-18 2019-06-18 Outpatient MHIE MHIE [id number] [facility] 14:45:00 14:45:00 08 carlos Marlon 2019-06-18 2019-06-18 Outpatient MHIE MHIE [id number] [facility] 11:15:00 11:15:00 07 carlos Mason 2019-06-18 2019-06-18 Outpatient HAROON GarciaSCHMINE MISCHER [id number] 11:15:00 11:15:00 Tho Robert Hernández 2019-06-08 2019-06-08 [facility] [id number] Common 15:57:00 15:57:[address] [facility] 2019-05-28 2019-05-28 [facility] [id number] Common 10:15:00 10:15:[address] [facility] 2019-05-20 2019-05-20 [facility] [id number] Common 09:33:00 09:33:00 t [employer] Spir it [address] [facility] 2019-04-27 2019-04-27 [facility] [id number] Common 14:22:00 14:22:00 t Specialty/U Sp franklyn Specialty rology - [facility] 2019-04-23 2019-04-24 Outpatient nullFlavo MNA [id number] [facility] 15:30:00 04:59:59 r Neurology 06 l Adali Mason 2019-04-23 2019-04-23 Outpatient Radha MHMISCHER MHMISCHER [id number] 10:30:00 23:59:59 Tho Maranda Edgar 2019-04-23 2019-04-23 Outpatient VARSHAIE VARSHAIE [id number] [facility] 10:30:00 10:30:00 06 carlos Marlon 2019-04-17 2019-04-17 [facility] [id number] Common 14:00:00 14:00:00 t Specialty/U Sp franklyn Specialty rology - [facility] 2019-04-17 2019-04-17 [facility] [id number] Common 10:33:00 10:33:00 t [employer] Spir [facility] 2019-02-24 2019-02-24 [facility] [id number] Common 09:30:00 09:30:00 t [employer] Spir it [facility] 2019-01-20 2019-01-20 [facility] [id number] Common 10:59:00 10:59:00 t Specialty/U Sp franklyn Specialty rology - [facility] 2019-01-19 2019-01-19 [facility] [id number] Common 09:29:00 09:29:00 t Specialty/U Sp franklyn Specialty rology - [facility] 2019-01-15 2019-01-15 Out[facility] [id number] Common 10:02:00 10:02:00 t Specialty/U Sp franklyn Specialty rology - [facility] 2019-01-13 2019-01-14 Outpatient nullFlavo MNA [id number] Memoria 18:30:00 04:59:59 r Neurology 05 l Adali Chaann 2019-01-13 2019-01-13 Outpatient HAROON GarciaSCHER MISCHER [id number] 13:30:00 23:59:59 Tho Shanda Hernández 2019-01-13 2019-01-13 Outpatient MHIE MHIE [id number] [facility] 13:30:00 13:30:00 05 carlos Marlon 2019-01-06 2019-01-06 [facility] [id number] Common 13:15:00 13:15:00 t Specialty/U Sp franklyn Specialty rology - [facility] 2018-12-09 2018-12-09 [facility] [id number] Common 13:00:00 13:00:00 t Specialty/U Sp franklyn Specialty rology - [facility] 2018-11-25 2018-11-25 [facility] [id number] Common 09:15:00 09:15:00 t [employer] [facility] it [facility] 2018-11-11 2018-11-12 Outpatient nullFlavo MNA [id number] Memoria 19:15:00 04:59:59 r Neurology 04 l [place] Marlon 2018-11-11 2018-11-11 Outpatient [facility] [id number] 14:15:00 23:59:59 Tho Arthur Hernández 2018-11-11 2018-11-11 Outpatient MHIE MHIE [id number] [facility] 14:15:00 14:15:00 04 carlos Mason 2018-10-14 2018-10-14 Outpatient MHIE MHIE [id number] [facility] 13:00:00 13:00:00 03 carlos Mason 2018-09-10 2018-09-10 Outpatient MHIE MHIE [id number] Memoria 10:30:00 10:30:00 02 carlos Mason 2018-08-21 2018-08-21 [facility] [id number] Common 10:30:00 10:30:[address] [facility] 2018-08-06 2018-08-06 [facility] [id number] Common 10:52:00 10:52:[address] [facility] 2018-08-04 2018-08-04 [facility] [id number] Common 09:26:00 09:26:[address] [facility] 2018-07-31 2018-07-31 Out[facility] [id number] Common 13:30:00 13:30:[address] [facility] 2018-02-19 2018-02-19 [facility] [id number] Common 13:45:00 13:45:[address] [facility] 2017-11-05 2017-11-05 [facility] [id number] Common 09:30:00 09:30:[address] Sp[address] [facility] Results Test Description Test Time Test Comments Results Result Comments Source POCT-GLUCOSE METER 2020-01-14 11:06:00 Test Item Value Reference Range Interpretation Comme nts POC-GLUCOSE METER (BEAKER) 145 mg/dL 70-110 H : TESTED AT [facility] [address] [place] [address] (test code = 1538) [facility], [address]: Burr Grinder/Techni omid ID = [id number] for BROWN, SARA POCT-GLUCOSE [id number] 08:37:00 Test Item Value Reference Range Interpretation Comments POC-GLUCOSE METER 101 mg/dL 70-110 : TESTED A T [facility] 6720 (BEAKER) (test code = FRANCK Lundy [facility], 1538) [address]38: Burr Grinder/Techni omid ID = [id number] for BR OWN, SARA POCT-GLUCOSE [id number] 20:48:00 Test Item Value Reference Range Interpretation Comments POC-GLUCOSE METER 143 mg/dL 70-110 H : [facility] ([employer]) (test code = FRANCK Lundy [facility], 1538) 23426: Burr Grinder/Techni omid ID = [id number] for KOREY HNSONJOANQUETTA POCT-GLUCOSE [id number] 16:46:00 Test Item Value Reference Range Interpretation Comments POC-GLUCOSE METER 129 mg/dL 70-110 H : TESTED A T [facility] 6720 (BEAKER) (test code [facility], = 1538) 56146: Burr Grinder/Techni omid ID = [id number] for TSEG GAI, TSIGHEREDA POCT-GLUCOSE [id number] 12:23:00 Test Item Value Reference Range Interpretation Comments POC-GLUCOSE METER 130 mg/dL 70-110 H : TESTED A T [facility] 6720 (BEAKER) (test code [facility], = 1538) 72064: Burr Grinder/Techni omid ID = [id number] for TSEG GAI, TSIGHEREDA POCT-GLUCOSE [id number] 09:40:00 Test Item Value Reference Range Interpretation Comments POC-GLUCOSE METER 102 mg/dL 70-110 : TESTED A T [facility] 6720 (BEAKER) (test code [facility], = 1538) 14350: Burr Grinder/Techni omid ID = [id number] for TSEG GAI, TSIGHEREDA POCT-GLUCOSE [id number] 21:24:00 Test Item Value Reference Range Interpretation Comments POC-GLUCOSE METER 113 mg/dL 70-110 H : TESTED A T [facility] 6720 (BEAKER) (test code = [facility], 1538) 41429: Burr Grinder/Techni omid ID = [id number] for KOREY HNSON, JOANQUETTA POCT-GLUCOSE [id number] 17:10:00 Test Item Value Reference Range Interpretation Comments POC-GLUCOSE METER 139 mg/dL 70-110 H : TESTED A T [facility] 6720 (BEAKER) (test code [facility], = 1538) 59073: Burr Grinder/Techni omid ID = [id number] for TSEG GAI, TSIGHEREDA POCT-GLUCOSE [id number] 13:07:00 Test Item Value Reference Range Interpretation Comments POC-GLUCOSE METER 94 mg/dL 70-110 : TESTED A T [facility] 6720 (BEAKER) (test code [facility], = 1538) 05703: Burr Grinder/Techni omid ID = [id number] for TSEG GAI, TSIGHEREDA POCT-GLUCOSE [id number] 09:57:00 Test Item Value Reference Range Interpretation Comments POC-GLUCOSE METER 101 mg/dL 70-110 : TESTED A T [facility] 6720 (BEAKER) (test code [facility], = 1538) 35954: Burr Grinder/Techni omid ID = [id number] for TSEG GAI, TSIGHEREDA POCT-GLUCOSE [id number] 00:40:00 Test Item Value Reference Range Interpretation Comments POC-GLUCOSE METER 111 mg/dL 70-110 H : TESTED A T [facility] 6720 (BEAKER) (test code = [facility], 1538) 86104: Burr Grinder/Techni omid ID = [id number] for DO VE, CHEKARA POCT-GLUCOSE [id number] 11:38:00 Test Item Value Reference Range Interpretation Comments POC-GLUCOSE METER 133 mg/dL 70-110 H : TESTED A T [facility] 6720 (BEAKER) (test code = [facility], 1538) 53434: Burr Grinder/Techni omid ID = [id number] for BR OWN, SARA POCT-GLUCOSE [id number] 08:45:00 Test Item Value Reference Range Interpretation Comments POC-GLUCOSE METER 106 mg/dL 70-110 : TESTED A T [facility] 6720 (BEAKER) (test code = [facility], 1538) 32677: Burr Grinder/Techni omid ID = [id number] for BR OWN, SARA TISSUE [id number] 22:15:00Surgical Pathology Report Case: [id number] Authorizing Provider: Zach Mendoza MD Collected: 01/03/2020 11:39 AM Ordering Location: [address] Received: 01/04/2020 09:02 AM Service Patholo gist: Nazario Barakat MD Specimen: Disc L2-3 VERTEBRAL COLUMN, INTERVERTEBRAL DISC, L2-3, DISCECTOMY:FRAGMENTS OF FIBROCARTILAGE WITH MILD DEGENERATIVE CHANGES Signing Pathologist Direct Phone Line: [phone] signed by Nazario Barakat MD on 01/10/2020 at 10:15 [id number]; [id number] disc herniationA. Disc L2-3A. Received fresh, labeled with the patient's name, MRN and "disc L2-3" is a 2 x 1.5 x 0.3 cm aggregate of multiple pink-white fibrocartilagenous tissue fragments. Passenger Locomotive Engineer sections are submitted in A1, following light decalcification.SAMMI Leigh, PA (ASC)PerformedPOCT- GLUCOSE [id number] 21:12:00 Test Item Value Reference Range Interpretation Comments POC-GLUCOSE METER 115 mg/dL 70-110 H : Notified RN/MD: ([facility]) (test code = TESTED AT [place] [id number] 1538) [facility], 09237: Burr Grinder/Techni omid ID = [id number] for DO VE, CHEKARA POCT-GLUCOSE [id number] 17:47:00 Test Item Value Reference Range Interpretation Comments POC-GLUCOSE METER 116 mg/dL 70-110 H : TESTED A T [facility] 6720 ([facility]) (test code = [facility], [employer]) 54411: Burr Grinder/Techni omid ID = [id number] for RO DGERS, JAMECA POCT-GLUCOSE [id number] 13:03:00 Test Item Value Reference Range Interpretation Comments POC-GLUCOSE METER 96 mg/dL 70-110 : TESTED A T [facility] 6720 ([facility]) (test code = [facility], 153) 05850: Burr Grinder/Techni omid ID = [id number] for RODG ERS, JAMECA POCT-GLUCOSE [id number] 08:29:00 Test Item Value Reference Range Interpretation Comments POC-GLUCOSE METER 112 mg/dL 70-110 H : TESTED A T [facility] 6720 ([facility]) (test code = [facility], 153) 24316: Burr Grinder/Techni omid ID = [id number] for RO DGERS, JAMECA POCT-GLUCOSE [id number] 23:21:00 Test Item Value Reference Range Interpretation Comments POC-GLUCOSE METER 127 mg/dL 70-110 H : [facility] RN[facility] ([facility] code = TESTED AT [place] [id number] 1538) [facility], 64830: Burr Grinder/Techni omid ID = [id number] for DO VE, CHEKARA BASIC METABOLIC [id number] 18:26:00 Test Item Value Reference Range Interpretation [...] S NOT APPLICABLE FOR DIALYSIS PATIEN TS. Burr Grinder ID - DBCBC W/PLT COUNT & AUTO [id number] 18:14:00 Test Item Value Reference Range Interpretation [...] PERCENT (BEAKER) (test code = 2801) POCT-GLUCOSE [id number] 17:23:00 Test Item Value Reference Range Interpretation Comments POC-GLUCOSE METER 125 mg/dL 70-110 H : TESTED A T [facility] 6720 (BEAKER) (test code = [facility], 1538) 96803: Burr Grinder/Techni omid ID = [id number] for AK INSONU, WILLIAM POCT-GLUCOSE [id number] 12:56:00 Test Item Value Reference Range Interpretation Comments POC-GLUCOSE METER 127 mg/dL 70-110 H : TESTED A T [facility] 6720 (BEAKER) (test code = [facility], 1538) 35408: Burr Grinder/Techni omid ID = [id number] for AK INSONU, WILLIAM POCT-GLUCOSE [id number] 08:53:00 Test Item Value Reference Range Interpretation Comments POC-GLUCOSE METER 105 mg/dL 70-110 : TESTED A T [facility] 6720 (BEAKER) (test code = [facility], 153) 00736: Burr Grinder/Techni omid ID = [id number] for AK INSONU, WILLIAM POCT-GLUCOSE [id number] 21:56:00 Test Item Value Reference Range Interpretation Comments POC-GLUCOSE METER 132 mg/dL 70-110 H : TESTED A T [facility] 6720 (BEAKER) (test code = [facility], 153) 80926: Burr Grinder/Techni omid ID = [id number] for DE NNIS, SILVA POCT-GLUCOSE [id number] 16:35:00 Test Item Value Reference Range Interpretation Comments POC-GLUCOSE METER 100 mg/dL 70-110 : TESTED A T [facility] 6720 (BEAKER) (test code = [facility], 153) 05880: Burr Grinder/Techni omid ID = [id number] for BR OWN, SARA POCT-GLUCOSE [id number] 12:05:00 Test Item Value Reference Range Interpretation Comments POC-GLUCOSE METER 122 mg/dL 70-110 H : TESTED A T [facility] 6720 (BEAKER) (test code = [facility], 153) 95127: Burr Grinder/Techni omid ID = [id number] for BR OWN, SARA POCT-GLUCOSE [id number] 09:03:00 Test Item Value Reference Range Interpretation Comments POC-GLUCOSE METER 100 mg/dL 70-110 : TESTED A T [facility] 6720 (BEAKER) (test code = [facility], 153) 92460: Burr Grinder/Techni omid ID = [id number] for BR OWN, SARA POCT-GLUCOSE [id number] 22:05:00 Test Item Value Reference Range Interpretation Comments POC-GLUCOSE METER 135 mg/dL 70-110 H : TESTED A T [facility] 6720 (BEAKER) (test code = [facility], 153) 43134: Burr Grinder/Techni omid ID = [id number] for DE NNIS, SILVA POCT-GLUCOSE [id number] 16:38:00 Test Item Value Reference Range Interpretation Comments POC-GLUCOSE METER 107 mg/dL 70-110 : TESTED A T [facility] 6720 (BEAKER) (test code [facility], = 1538) 31216: Burr Grinder/Techni omid ID = [id number] for TSEG GAI, TSIGHEREDA POCT-GLUCOSE [id number] 12:03:00 Test Item Value Reference Range Interpretation Comments POC-GLUCOSE METER 111 mg/dL 70-110 H : TESTED A T [facility] 6720 (BEAKER) (test code [facility], = 1538) 08365: Burr Grinder/Techni omid ID = [id number] for TSEG GAI, TSIGHEREDA POCT-GLUCOSE [id number] 22:07:00 Test Item Value Reference Range Interpretation Comments POC-GLUCOSE METER 112 mg/dL 70-110 H : TESTED A T [facility] 6720 (BEAKER) (test code = [facility], 1538) 52395: Burr Grinder/Techni omid ID = [id number] for DE NNIS, SILVA POCT-GLUCOSE [id number] 17:28:00 Test Item Value Reference Range Interpretation Comments POC-GLUCOSE METER 93 mg/dL 70-110 : TESTED A T [facility] 6720 (BEAKER) (test code [facility], = 1538) 20458: Burr Grinder/Techni omid ID = [id number] for TSEG GAI, TSIGHEREDA POCT-GLUCOSE [id number] 15:47:00 Test Item Value Reference Range Interpretation Comments POC-GLUCOSE METER 128 mg/dL 70-110 H : TESTED A T [facility] 6720 (BEAKER) (test code = [facility], 1538) 17029: Burr Grinder/Techni omid ID = [id number] for BR OWN, SARA POCT-GLUCOSE [id number] 09:01:00 Test Item Value Reference Range Interpretation Comments POC-GLUCOSE METER 108 mg/dL 70-110 : TESTED A T [facility] 6720 (BEAKER) (test code = [facility], 1538) 04903: Burr Grinder/Techni omid ID = [id number] for BR OWN, SARA POCT-GLUCOSE [id number] 11:17:00 Test Item Value Reference Range Interpretation Comments POC-GLUCOSE METER 105 mg/dL 70-110 : TESTED A T [facility] 6720 (BEAKER) (test code = [facility], 1538) 75916: Burr Grinder/Techni omid ID = [id number] for HU NT, KAYKAY POCT-GLUCOSE [id number] 09:40:00 Test Item Value Reference Range Interpretation Comments POC-GLUCOSE METER 106 mg/dL 70-110 : TESTED A T [facility] 6720 (BEAKER) (test code = [facility], 1538) 92565: Burr Grinder/Techni omid ID = [id number] for HU NT, KAYKAY CBC W/PLT COUNT & AUTO [id number] 06:05:00 Test Item Value Reference Range Interpretation [...] (BEAKER) (test code = 2801) LACTIC ACID, [id number] 06:03:00 Test Item Value Reference Range Interpretation Comments LACTATE BLOOD VENOUS (2) (BEAKER) 0.81 mmol/L 0.50-2.20 (test code = 2872) Burr Grinder ID - BRIAN MPOCT-GLUCOSE [id number] 08:30:00 Test Item Value Reference Range Interpretation Comments POC-GLUCOSE METER 101 mg/dL 70-110 : TESTED A T [facility] 6720 (BEAKER) (test code = [facility], 1538) 13827: Burr Grinder/Techni omid ID = [id number] for WILLIAM LYNCH BASIC METABOLIC [id number] 05:19:00 Test Item Value Reference Range Interpretation [...] S NOT APPLICABLE FOR DIALYSIS PATIEN TS. Burr Grinder ID - BRIAN MPOCT-GLUCOSE [id number] 22:02:00 Test Item Value Reference Range Interpretation Comments POC-GLUCOSE METER 140 mg/dL 70-110 H : TESTED A T [facility] 6720 (BEAKER) (test code = [facility], 1538) 52810: Burr Grinder/Techni omid ID = [id number] for DE NNIS, SILVA POCT-GLUCOSE [id number] 18:05:00 Test Item Value Reference Range Interpretation Comments POC-GLUCOSE METER 128 mg/dL 70-110 H : TESTED A T [facility] 6720 (BEAKER) (test code [facility], = 1538) 28613: Burr Grinder/Techni omid ID = [id number] for TSEG GAI, LAWRENCEIGHEREDA RAD, CHEST, 1 VIEW, NON [id number] 14:05:00Reason for exam:->Check position of central lineFINAL [...] 01/02/2020. Signed: Nat Mcclellan MDReport Verified Date/Time: 01/03/202014:05:38 Reading Location: [facility] B1 C013Y CT Body Reading Room FL, FLUORO, NON-SPECIFIC, UP TO 1 [id number] 10:07:00 Reason for exam:->Lumbar LaminectomyFINAL REPORT Fluoroscopy, less than 1 hour History:Localization for lumbar spine surgery Comparison: none Findings:Fluoroscopic assistance was provided during lumbar spine surgery.The images are taken in lateral projection. The localization device appears at L3. Please see separate procedure note for full details. Total Fluoroscopy time: 46.4 seconds Number of fluoroscopic images obtained: 2 Impression:Fluoroscopy assistance as described above. Findings discussed with Dr. Mendoza intdaniel emergency room at the time of this dictation. Signed: Nitin Naranjo MDReport Verified Date/Time: 01/03/2020 10:07:45 Reading Location: [facility] C013X Ortho Consult Reading Room [id number] 06:23:00 Test Item Value Reference Range Interpretation Comments FERRITIN (BEAKER) (test code = 39.88 ng/mL 5.00-275.00 361) Burr Grinder ID - BRIAN MVITAMIN B12 AND [id number] 06:23:00 Test Item Value Reference Range Interpretation Comments VITAMIN B12 (BEAKER) (test code = 232 pg/mL 213-816 774) FOLATE (BEAKER) (test code = 362) 9.30 ng/mL >=7.00 Burr Grinder ID - BRIAN LAWRENCEON, TIBC, % SAT. (WITHOUT FERRITIN)2020-01-03 05:49:00 Test Item Value Reference Range Interpretation Comments IRON (BEAKER) (test code = 547) 37.0 ug/dL 40.0-160.0 L TOTAL IRON BINDING CAPACITY 436 ug/dL 250-450 (BEAKER) (test code = 769) IRON % SATURATION (2) (BEAKER) 8 % 20-55 L (test code = 2590) Burr Grinder ID - BRIAN MBASIC METABOLIC [id number] 05:25:00 Test Item Value Reference Range Interpretation [...] = 358) GLUCOSE RANDOM 103 mg/dL 70-105 (BEAKER) (test code = 652) CALCIUM (DIORAKER) 8.9 mg/dL 8.4-10.2 (test code = 697) EGFR (MACRINA) (test 85 mL/min/1.73 ESTIMA EMIR GFR IS code = 1092) sq m NOT ACCURATE CREATININE CLEARANCE IN PREDICTING GLOMERULAR FILTRATION RATE . ESTIMATED GFR I S NOT APPLICABLE FOR DIALYSIS PATIEN TS. Burr Grinder ID - BRIAN MPOCT-GLUCOSE [id number] 18:11:00 Test Item Value Reference Range Interpretation Comments POC-GLUCOSE METER 80 mg/dL 70-110 : TESTED A T [facility] 6720 (MACRINA) (test code = [facility], 1538) 14796: Burr Grinder/Techni omid ID = [id number] for WILLIAM MAGANA SARS-COV2/RT-PCR ([facility])2020-01-02 14:35:00 Test Item Value Reference Range Interpretation Comments SARS-COV2/RT-PCR (test Not Detected Not Detected, Negative code = 5839409) SARS-COV-2 PERFORMING LAB [facility] (test code = 1170837) Negative results do not preclude SARS-CoV-2 infection [...] of the Act.Fact Sheet for Healthcare Pro viders:https://www.Vinja.uiu/Documents/Xpert%20Xpress%20SARS%20CoV-2/Fact%20Sh eets/302-3802%38EUUP-XDE-5%20HEALTHCARE%20PROVIDERS%20FACT%20SHEET.pdfFact Sheet for Healthcare Patients:https://www.ScaleGrid.com/Documents/Xpert%20Xpress%20SARS%20CoV-2/Fact%20Sheets/302-3801%20SARS-COV -2%20PATIENT%20FACT%20SHEET.pdfPerforming Laboratory:[facility], [place] [address]BS, SPINE, LUMBAR, WO [id number] 13:56:00FINAL REPORT CT, SPINE, LUMBAR, WO CONTRAST INDICATION: L2-3 disc herniation/surgical planning COMPARISON: None TECHNIQUE: Contiguous noncontrast axial images of the lumbar spine are obtained. Computer reformatted coronal and sagittal images are also provided. Axial images are avai lable in both bone and soft tissue algorithm. DOSE REDUCTION: Dose modulation, iterative reconstruction, and/or weight-based adjustment of the mA/kV was utilized to reduce the radiation dose to as low as reasonably achievable. FINDINGS: Exam is limited by low rgkgzi-vy-vhhvl ratio due to patient body h abitus. Nomenclature: L5-S1 is axial image 116. Alignment: Normal. Vertebrae: No acute fracture. No aggressive osseous lesions. Spondylosis: Large disc herniation at L2-[address] is [address] evaluated by CT. There is likely at least moderate canal stenosis. Soft tissues: No acute abnormality. IMPRESSION:Pr eoperative planning exam. 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 Signed: Catherine Vaughan Verified Date/Time: 01/02/2020 13:56:46 RAD, CHEST, 1 VIEW, NON [id number] 12:49:00Reason for exam:- >preopShould this be performed at the bedside?->YesFINAL REPORT RAD, CHEST, 1 VIEW, NON DEPT CLINICAL INDICATION: preop TECHNIQUE: AP view of the chest COMPARISON: None FINDINGS: Contents retrocardiac opacity reflect atelectasis. Lungs are otherwise clear. No pleural effusion or pneumothorax. Cardiomediastinal silhouette, dariana, and pulmonary vasculature are normal. No acute osseous abnormality. IMPRESSION:Dense retrocardiac opacity likely reflects atelectasis. Otherwise no acute cardiopulmonary abnormality. Signed: Catherine Vaughan Verified Date/Time: 01/02/2020 12:49:44 /FREE T4 IF [id number] 12:14:00 Test Item Value Reference Range Interpretation Comments THYROID STIMULATING HORMONE 4.784 uIU/mL 0.350-4.940 (BEAKER) (test code = 772) Burr Grinder ID - RICHIE CVITAMIN D, [id number] 12:07:00 Test Item Value Reference Range Interpretation Comments VITAMIN D 25-OH (BEAKER) (test 10.1 ng/mL 6.6-49.9 code = 2764) Effective 05/08/2017: Reference Range ChangeNew: 6.6-49.9 ng/mL Previous: 13.0- 47.8 ng/mLRecommendedVitamin D Target Range: 30.0-40.0 ng/mLOperator ID - [id number] 11:46:00 Test Item Value Reference Range Interpretation Comments PARTIAL THROMBOPLASTIN TIME 28.1 seconds 22.5-36.0 (BEAKER) (test code = 760) HEPATIC FUNCTION [id number] 08:59:00 Test Item Value Reference Range Interpretation [...] (test code = 15 U/L 6-55 347) Burr Grinder ID - RICHIE CPROTHROMBIN [id number] 08:53:00 Test Item Value Reference Range Interpretation Comments PROTIME (BEAKER) (test code = 13.5 seconds 11.9-14.2 759) INR (BEAKER) (test code = 370) 1.1 <=5.9 Effective 12/24/2018: PT Reference Range ChangeNew: 11.9-14.2 Previous: 11.7- 14.7RECOMMENDED COUMADIN/WARFARIN INR THERAPY RANGESSTANDARD DOSE: 2.0-3.0 Includes: PROPHYLAXIS for venous thrombosis, systemic embolization; TREATMENT for venous thrombosis and/or pulmonary embolus.HIGH RISK: Target INR is 2.5-3.5 for patients wiht mechanical heart valves.BASIC METABOLIC [id number] 06:12:00 Test Item Value Reference Range Interpretation [...] S NOT APPLICABLE FOR DIALYSIS PATIEN TS. Burr Grinder ID - ANEL WCBC W/PLT COUNT & AUTO [id number] 05:39:00 Test Item Value Reference Range Interpretation [...] % 0-1 PERCENT (BEAKER) (test code = 2151)
--- NOTE | 2022-04-13 21:48 | RAD REPORT ---
EXAM DESCRIPTION: US - Extrem Venous W Compress Naeem - 04/13/2022 9:32 pm CLINICAL HISTORY: PAIN COMPARISON: Extremity Venous Uni Ltd dated 06/17/2021 TECHNIQUE: Real-time sonographic evaluation of the lower extremity deep venous systems was performed using color Doppler, grayscale, and compression. FINDINGS: Bilateral lower extremities. Normal compressibility, flow augmentation, phasic flow and spontaneous flow is identified in both the left and right lower extremity deep venous systems. No intraluminal filling defects seen. IMPRESSION: No DVT in either lower extremity.
--- NOTE | 2022-04-13 22:25 | RAD REPORT ---
EXAM DESCRIPTION: US - Lower Extremity Artery Uni Ltd - 04/13/2022 9:35 pm CLINICAL HISTORY: Leg pain COMPARISON: None FINDINGS: Color Doppler, grayscale, and spectral analysis was performed. Biphasic flow within the common femoral artery, superficial femoral artery, popliteal artery, posteri or tibial artery and dorsalis pedis arteries. Velocities are within normal limits. IMPRESSION: No flow limiting stenosis within the right lower extremity.
--- NOTE | 2022-04-13 22:31 | RAD REPORT ---
EXAM DESCRIPTION: RAD - Foot Right 3 View - 04/13/2022 10:10 pm CLINICAL HISTORY: PAIN COMPARISON: Foot Right 3 View dated 12/20/2016; MRI FOOT RIGHT dated 11/29/2014 FINDINGS/IMPRESSION: Hallux valgus deformity at the first MTP. Diffuse osteopenia is noted. Midfoot degenerative changes. No fractures identified. No radiographic evidence of osteomyelitis.
--- NOTE | 2022-04-13 22:32 | RAD REPORT ---
EXAM DESCRIPTION: RAD - Chest Single View - 04/13/2022 10:10 pm CLINICAL HISTORY: AMS COMPARISON: Chest Single View dated 06/17/2021; Chest Single View dated 01/01/2020; Chest Single View dated 11/18/2016; Chest Single View dated 10/26/2016 FINDINGS: Lines: None. Lungs: No evidence of edema or pneumonia. Pleural: No significant pleural effusions or pneumothorax. Cardiac: Enlarged cardiac silhouette which may be accentuated by low lung volumes. Mediastinum: Within normal limits. Bones: No acute fractures. Other: None IMPRESSION: No acute cardiopulmonary disease.
[2022-04-13 22:55] LABS: Absolute Lymphocytes (CBC) 0.5 K/uL (0.7-4.9); Hematocrit 38.1 % (36.0-45.0); MPV 8.8 fL (7.6-11.3); RBC Red Blood Cell Count 4.38 M/uL (3.86-4.86)
[2022-04-13 22:56] LABS: Protime INR 1.01
[2022-04-13 23:02] LABS: Urine Blood Negative (Negative); Urine Glucose Negative (Negative); Urine Protein Negative (Negative)
[2022-04-13 23:09] LABS: Urine Bacteria <20 /HPF (<20); Urine Mucus Slight /HPF (None Seen); Urine RBC <5 /HPF (None Seen)
[2022-04-13 23:11] LABS: Magnesium 1.7 mg/dL (1.8-2.4); Potassium 4.5 mmol/L (3.5-5.1); Troponin High Sensitivity 10.1 pg/mL (<58.9)
[2022-04-13] MEDS ORDERED: NA CHLORIDE 0.9% 500 ML ONE (23:12)
[2022-04-13] MEDS ORDERED: NA CHLORIDE 0.9% 100 ML ONE (23:34)
[2022-04-13] MEDS ORDERED: CEFEPIME 2 GM VIAL ONE (23:34)
[2022-04-13 23:58] LABS: Arterial Blood Carboxyhemoglob 0.7 % (0-1.5); Blood O2 Saturation 94.7 % (92-98.5)
[2022-04-14 00:59] LABS: SARS-CoV-2 Antigen Rapid Res Negative (Negative)
--- NOTE | 2022-04-14 01:15 | EDPHYS ---
Physician Documentation [facility] Name: Hanane Huizar Age: 81 yrs Sex: Female : 1940 Arrival Date: 04/13/2022 Time: 19:28 Bed 27 Private MD: ED Physician Sharath Bro HPI: 04/13 20:25 This 81 yrs old Female presents to ER via EMS with complaints of Altered Mental Status. cp 20:25 The patient presents with decreased mental status. cp 20:25 Onset: The symptoms/episode began/occurred 4 day(s) ago. cp 20:25 Possible causes: sepsis, the patient lives in a retirement, history of recent UTI. cp Associated signs and symptoms: Pertinent negatives: abdominal pain, chest pain, combativeness, fever. Patient's baseline: Neuro: alert and fully oriented, Ambulation: unable to walk, is bedridden, Speech: normal. Historical: - Allergies: 19:47 No Known Allergies; vc1 - PMHx: 19:47 Arthritis; Hyperlipidemia; Hypertension; Hypothyroidism; spinal stenosis; ESRD; vc1 Obstructive Sleep Apnea; - PSHx: 19:47 Pacemaker; vc1 - Immunization history:: Adult Immunizations up to date. - Social history:: Smoking status: unknown. ROS: 20:30 Constitutional: Positive for poor PO intake, Negative for fever. cp 20:30 Eyes: Negative for injury, pain, redness, and discharge. cp 20:30 Cardiovascular: Positive for edema, Negative for chest pain. 20:30 Respiratory: Negative for cough, shortness of breath, wheezing. 20:30 Abdomen/GI: Negative for abdominal pain, vomiting, diarrhea, constipation. 20:30 Neuro: Positive for altered mental status. 20:30 All other systems are negative. Exam: 20:30 ECG was reviewed by the Attending Physician. cp 20:35 Constitutional: The patient appears in no acute distress, alert, awake, cp non-diaphoretic, non-toxic, well developed, well nourished, obese. 20:35 Head/Face: Normocephalic, atraumatic. cp 20:35 Eyes: Periorbital structures: appear normal, Pupils: equal, round, and reactive to light and accomodation, Extraocular movements: intact throughout, Conjunctiva: normal, no exudate, no injection, Sclera: no appreciated abnormality, Lids and lashes: appear normal, bilaterally. 20:35 ENT: External ear(s): are unremarkable, Nose: is normal, Mouth: Lips: dry, Oral mucosa: pink and intact, moist, Posterior pharynx: Airway: no evidence of obstruction, patent. 20:35 Neck: ROM/movement: pain, that is mild, with any movement, Meningeal signs: are not present, nuchal rigidity, is not appreciated. 20:35 Chest/axilla: Inspection: normal, Palpation: is normal, no crepitus, no tenderness. 20:35 Cardiovascular: Rate: tachycardic, Rhythm: regular, Edema: pedal edema, that is mild, JVD: is not appreciated. 20:35 Respiratory: the patient does not display signs of respiratory distress, Respirations: labored breathing, is not present, shallow respirations, that is mild, Breath sounds: decreased breath sounds, that are mild, throughout, stridor, is not appreciated, wheezing: is not appreciated. 20:35 Abdomen/GI: Inspection: obese Bowel sounds: active, all quadrants, Palpation: abdomen is soft and non-tender, in all quadrants, rebound tenderness, is not appreciated, involuntary guarding, is not appreciated. 20:35 Back: pain, is absent, ROM is normal. 20:35 Neuro: Orientation: to person, situation, Mentation: able to follow commands, slow to respond. 20:35 Skin: cellulitis, that is mild, on the right first toe, erythema, mild swelling noted. cp Vital Signs: 19:40 BP 112 / 61; Pulse 94; Resp 24; Temp 99.9(O); Pulse Ox 94% on R/A; vc1 20:36 BP 136 / 80; Pulse 102; Resp 22; Pulse Ox 94% on R/A; tw5 22:45 BP 91 / 54; Pulse 86; Resp 18; Pulse Ox 86% on R/A; tw5 23:51 Pulse 88; Resp 18; Pulse Ox 96% on 2 lpm NC; tw5 04/14 03:25 BP 104 / 57; Pulse 75; Resp 24; Pulse Ox 94% on 2 lpm NC; tw5 04/13 22:45 2 L NC placed on patient. tw5 MDM: 20:05 Patient medically screened. [facility] 09/17 01:15 Data reviewed: vital signs, nurses notes, lab test result(s), EKG, radiologic studies, cp CT scan, plain films. 01:15 Test interpretation: by ED physician or midlevel provider: ECG, plain radiologic cp studies. Response to treatment: the patient's symptoms have mildly improved after treatment. 04/13 20:22 Order name: Basic Metabolic Panel; Complete Time: 23:15 cp 04/13 23:15 Interpretation: Normal except: GLUC 150; BUN 28; GFR 84. 04/13 20:22 Order name: CBC with Diff; Complete Time: 23:03 04/13 23:16 Interpretation: Normal except: MCHC 31.7; RDW 16.6; CHELSIE% 75.4; LYM% 10.0; LYMA 0.5. 04/13 20:22 Order name: Magnesium; Complete Time: 23:15 cp 04/13 20:22 Order name: NT PRO-BNP; Complete Time: 23:15 cp 04/13 20:22 Order name: PT-INR; Complete Time: 23:03 04/13 20:22 Order name: Troponin HS; Complete Time: 23:15 04/13 20:22 Order name: XRAY Chest (1 view); Complete Time: 22:39 04/13 20:22 Order name: Lactate; Complete Time: 23:15 04/13 20:22 Order name: Blood Culture Adult (2) 04/13 20:22 Order name: Urine Microscopic Only; Complete Time: 23:15 04/13 23:15 Interpretation: Normal except: HYAL 5-10. 04/13 20:22 Order name: Procalcitonin; Complete Time: 00:33 cp 04/14 00:33 Interpretation: Reviewed. 04/13 23:03 Order name: Urine Dipstick-Ancillary; Complete Time: 23:03 EDMS 04/13 23:17 Order name: ABG; Complete Time: 00:57 cp 04/14 00:08 Order name: SARS RAPID; Complete Time: 01:09 tw5 04/13 20:22 Order name: EKG; Complete Time: 20:23 cp 04/13 20:22 Order name: Cardiac monitoring; Complete Time: 22:32 cp 04/13 20:22 Order name: EKG - Nurse/Tech; Complete Time: 20:54 cp 04/13 20:22 Order name: IV Saline Lock; Complete Time: 22:32 cp 04/13 20:22 Order name: Labs collected and sent; Complete Time: 22:33 cp 04/13 20:22 Order name: O2 Per Protocol; Complete Time: 22:50 cp 04/13 20:22 Order name: Extremity Venous W Compression Naeem; Complete Time: 22:39 cp 04/13 20:22 Order name: LE Artery Uni Ltd; Complete Time: 22:39 cp 04/13 20:22 Order name: XRAY Foot RIGHT 3 View; Complete Time: 22:39 cp 04/13 22:56 Order name: CT Head Brain wo Cont cp 04/13 23:17 Order name: CT Chest, Abdomen, Pelvis - W/Contrast 04/13 20:22 Order name: O2 Sat Monitoring; Complete Time: 22:50 cp 04/13 20:22 Order name: Urine Dipstick-Ancillary (obtain specimen); Complete Time: 23:06 cp 04/13 20:22 Order name: Cath; Complete Time: 22:32 cp EC/16 20:30 Rate is 98 beats/min. Rhythm is regular. IN interval is normal. QRS interval is cp prolonged at 132 msec. QT interval is normal. T waves are Inverted in lead aVR. Interpreted by me. Reviewed by me. Administered Medications: 23:50 Drug: NS 0.9% 500 ml Route: IV; Rate: bolus; Site: right antecubital; tw5 04/14 03:07 Follow up: Response: No adverse reaction; IV Status: Completed infusion; IV Intake: tw5 500ml 04/13 23:50 Drug: Cefepime 2 grams Route: IVPB; Rate: 200 ml/hr; Infused Over: 30 mins; Site: right tw5 antecubital; 04/14 03:08 Follow up: IV Status: Completed infusion tw5 02:01 Drug: metroNIDAZOLE 500 mg Volume: 100 ml; Route: IVPB; Infused Over: 30 mins; Site: tw5 right antecubital; 03:08 Follow up: IV Status: Completed infusion tw5 02:01 Drug: NS 0.9% 500 ml Route: IV; Rate: bolus; Site: right antecubital; tw5 03:08 Follow up: Response: No adverse reaction; IV Status: Completed infusion; IV Intake: tw5 100ml 03:07 Drug: LevaQUIN (levofloxacin) 750 mg Volume: 150 ml; Route: IVPB; Infused Over: 90 tw5 mins; Site: right antecubital; 03:25 Follow up: IV Status: Infusion continued upon admission tw5 Disposition Summary: 04/14/22 01:14 Hospitalization Ordered Hospitalization Status: Inpatient Admission cp Provider: Ramo Cleary cp [facility] cp Condition: Stable cp Problem: new cp Symptoms: have improved cp Bed/Room Type: Standard cp Room Assignment: 415(04/14/22 02:49) cg Diagnosis - Sepsis, unspecified organism cp - Cellulitis of right lower limb - right toe cp - Pneumonia, unspecified organism cp - Colitis cp Forms: - Medication Reconciliation Form cp - SBAR form cp Signatures: Dispatcher [employer] EDSharath Dickerson MD MD cha Attema, Lee, TOBACCO CURER-C TOBACCO CURER-Cla1 Sharath Hernandez PA PA cp Heidi Hernandez RN RN cg Lolly Ruelas tw5 Elina Lazaro RN RN vc1 Corrections: (The following items were deleted from the chart) 02:49 01:14 cp cg
--- NOTE | 2022-04-14 01:15 | ER ---
Nurse's Notes [facility] Name: Hanane Huizar Age: 81 yrs Sex: Female : 1940 Arrival Date: 04/13/2022 Time: 19:28 Bed 27 Private MD: Diagnosis: Sepsis, unspecified organism;Cellulitis of right lower limb-right toe;Pneumonia, unspecified organism;Colitis Presentation: 04/13 19:40 Chief complaint: EMS states: "We initially were toned out for an infected toe, her vc1 daughter wanted to get a second opinion. When we arrived her BP was 80/60. We gave her about 200 cc of NS and her BP increased. Her O2 was 90-91% but she said that is normal for her because she has COPD.". Coronavirus screen: At this time, the client does not indicate any symptoms associated with coronavirus-19. Ebola Screen: No symptoms or risks identified at this time. Initial Sepsis Screen: Does the patient meet any 2 criteria? RR > 20 per min. HR > 90 bpm. Yes Does the patient have a suspected source of infection? Yes: Skin breakdown/wound. Risk Assessment: Do you want to hurt yourself or someone else? Patient reports no desire to harm self or others. Onset of symptoms was April 13, 2022. 19:40 Method Of Arrival: EMS: [facility] vc1 19:40 Acuity: ROSEMARY 3 vc1 Triage Assessment: 19:48 General: Appears in no apparent distress. uncomfortable, obese, unkempt, Behavior is vc1 calm, cooperative. Pain: Complains of pain in right first toe. EENT: No deficits noted. Neuro: Level of Consciousness is awake, obeys commands, Oriented to person, situation. Cardiovascular:. Respiratory: Airway is patent Respiratory effort is even, unlabored, Respiratory pattern is tachypnea. GI: No deficits noted. : No deficits noted. Derm: Wound noted right first toe. Historical: - Allergies: 19:47 No Known Allergies; vc1 - PMHx: 19:47 Arthritis; Hyperlipidemia; Hypertension; Hypothyroidism; spinal stenosis; ESRD; vc1 Obstructive Sleep Apnea; - PSHx: 19:47 Pacemaker; vc1 - Immunization history:: Adult Immunizations up to date. - Social history:: Smoking status: unknown. Screenin:36 Abuse screen: Denies threats or abuse. Denies injuries from another. Nutritional tw5 screening: Daughter states "Someone has to feed her or she wont". Tuberculosis screening: No symptoms or risk factors identified. Fall Risk Secondary diagnosis (15 points) IV access (20 points). Gait- Normal/Bed Rest/Wheelchair (0 pts) Mental Status- Overestimates/Forgets Limitations (15 pts.). Assessment: 20:36 General: Daughter at the bedside states " She has been on antibitiotics for the past 4 tw5 months for a UTI, but they dont' seem to be doing anything at all. She also has started to develop a smell that wasn't there before, they also just told me about this foot wound and said that it had just developed yesterday, I dont believe that. The wound looks like it has been developing for a while now. She also has a lot of redness in her face that wasn't there. This is not what she normally looks like and I am very concerned that she is really sick even septic.". Pain: Complains of pain in buttocks Pain currently is 9 out of 10 on a pain scale. Neuro: Level of Consciousness is awake, alert, obeys commands, Oriented to person, place. Respiratory: Airway is patent Trachea midline Respiratory effort is. Derm: Skin with poor turgor Wound noted medial aspect of right toes Wound is redness, swollen and pustule. 22:45 General: Smells of foul, strong order. Beige green discharge noted on diapers. Unknown tw5 source. Urine appeared clear. : Urine is clear. 22:50 General: Two nurses spent over 30 min in the room with daughter cleaning up patient and tw5 placing a Jenkins. Daughter at the bedside appears agitated and anxious about her mothers condition. Nursing staff explained the process and time frame for results. . 23:47 General: patient in CT. Daughter can be heard complaining on phone about nursing staff. tw5 Nursing staff asked provider to step into room to talk to daughter about the process and status. . 23:51 General: RT at the bedside getting ABG. tw5 Vital Signs: 19:40 BP 112 / 61; Pulse 94; Resp 24; Temp 99.9(O); Pulse Ox 94% on R/A; vc1 20:36 BP 136 / 80; Pulse 102; Resp 22; Pulse Ox 94% on R/A; tw5 22:45 BP 91 / 54; Pulse 86; Resp 18; Pulse Ox 86% on R/A; tw5 23:51 Pulse 88; Resp 18; Pulse Ox 96% on 2 lpm NC; tw5 04/14 03:25 BP 104 / 57; Pulse 75; Resp 24; Pulse Ox 94% on 2 lpm NC; tw5 04/13 22:45 2 L NC placed on patient. tw5 ED Course: 19:28 Patient arrived in ED. tw5 19:46 Triage completed. vc1 19:49 Arm band placed on. vc1 19:49 Patient has correct armband on for positive identification. Bed in low position. Side vc1 rails up X2. Client placed on continuous cardiac and pulse oximetry monitoring. NIBP monitoring applied. 19:56 EKG done, by lead radiologic technologist. reviewed by Sharath Bro MD. oe 20:00 Sharath Hernandez PA is PHCP. cp 20:00 Sharath Bro MD is Attending Physician. cp 20:25 Lolly Ruelas is Primary Nurse. tw5 21:34 US Extremity Venous W Compression Naeem In Process Unspecified. EDMS 21:37 US LE Artery Uni Ltd In Process Unspecified. EDMS 22:00 Initial lab(s) drawn, by me, sent to lab. First set of blood cultures drawn by nm. tw5 22:11 XRAY Chest (1 view) In Process Unspecified. EDMS 22:11 XRAY Foot RIGHT 3 View In Process Unspecified. EDMS 22:30 Awaiting lab results. tw5 22:30 Second set of blood cultures drawn by me. tw5 22:30 Jenkins cath inserted, using sterile technique, 16 Fr., by me, balloon inflated, to tw5 gravity drainage, urine specimen collected. returned clear yellow urine. Patient tolerated well. 22:45 Door closed. Noise minimized. tw5 22:45 Inserted saline lock: 20 gauge in right antecubital area, using aseptic technique. tw5 Blood collected. ultrasound guided IV. Several missed attempts prior by techs. 22:50 Procalcitonin Sent. tw5 22:50 Urine Microscopic Only Sent. tw5 22:50 Blood Culture Adult (2) Sent. tw5 22:50 Lactate Sent. tw5 22:50 Troponin HS Sent. tw5 22:50 Magnesium Sent. tw5 22:50 CBC with Diff Sent. tw5 22:50 Basic Metabolic Panel Sent. tw5 22:50 NT PRO-BNP Sent. tw5 22:50 PT-INR Sent. tw5 23:51 CT Head Brain wo Cont In Process Unspecified. EDMS 23:51 CT Chest, Abdomen, Pelvis - W/Contrast In Process Unspecified. EDMS 23:51 Procalcitonin Sent. tw5 04/14 00:40 ABG Sent. tw5 00:40 Blood Culture Adult (2) Sent. tw5 00:41 SARS RAPID Sent. tw5 01:13 Ramo Cleary MD is Hospitalizing Provider. cp 02:52 No provider procedures requiring assistance completed. Patient admitted, IV remains in tw5 place. Administered Medications: 04/13 23:50 Drug: NS 0.9% 500 ml Route: IV; Rate: bolus; Site: right antecubital; tw5 04/14 03:07 Follow up: Response: No adverse reaction; IV Status: Completed infusion; IV Intake: tw5 500ml 04/13 23:50 Drug: Cefepime 2 grams Route: IVPB; Rate: 200 ml/hr; Infused Over: 30 mins; Site: right tw5 antecubital; 04/14 03:08 Follow up: IV Status: Completed infusion tw5 02:01 Drug: metroNIDAZOLE 500 mg Volume: 100 ml; Route: IVPB; Infused Over: 30 mins; Site: tw5 right antecubital; 03:08 Follow up: IV Status: Completed infusion tw5 02:01 Drug: NS 0.9% 500 ml Route: IV; Rate: bolus; Site: right antecubital; tw5 03:08 Follow up: Response: No adverse reaction; IV Status: Completed infusion; IV Intake: tw5 100ml 03:07 Drug: LevaQUIN (levofloxacin) 750 mg Volume: 150 ml; Route: IVPB; Infused Over: 90 tw5 mins; Site: right antecubital; 03:25 Follow up: IV Status: Infusion continued upon admission tw5 Medication: 04/13 20:36 VIS not applicable for this client. tw5 Intake: 04/14 03:07 IV: 500ml; Total: 500ml. tw5 03:08 IV: 100ml; Total: 600ml. tw5 Output: 03:33 Urine: 900ml (Jenkins); Total: 900ml. Outcome: 01:14 Decision to Hospitalize by Provider. cp 02:52 Admitted to Med/surg accompanied by tech, via stretcher, room 415. tw5 02:52 Condition: stable 02:52 Instructed on the need for admit. 03:00 Admitted to Med/surg Report called to report given to jorgito 03:39 Patient left the ED. Signatures: Dispatcher [employer] EDMS Sharath Hernandez PA PA cp Espinosa, Orlando oe Wood, Tiffany Elina Lazaro, RN RN vc1
[2022-04-14] MEDS ORDERED: Levofloxacin 750mg IV 750 MG/150 ML BAG IV ONE (01:53)
[2022-04-14] MEDS ORDERED: METRONIDAZOLE 500mg IVPB 500 MG/100 ML BAG IV ONE (01:54)
[2022-04-14] MEDS ORDERED: NA CHLORIDE 0.9% 500 ML ONE (02:06)
--- NOTE | 2022-04-14 03:23 | P.HP ---
Certification for Inpatient Patient admitted to: Inpatient With expected LOS: >2 Midnights Patient will require the following post-hospital care: None Practitioner: I am a practitioner with admitting privileges, knowledge of patient current condition, hospital course, and medical plan of care. Services: Services provided to patient in accordance with Admission requirements found in Title 42 Section 412.3 of the Code of Federal Regulations <Otf Paulino - Last Filed: 04/14/22 03:15> Patient History Date of Service: 04/14/22 Reason for admission: Sepsis History of Present Illness: 81-year-old female with history of COPD, hyperlipidemia, GERD, obesity, RA, gout who is bedbound resident of a [facility] presents emergency department initially for concern of wound to the right great toe as well as low blood pressure. Daughter reports she was notified of wound to the right great toe yesterday and concern that her mother may be becoming ill. She is evaluated in the emergency department she initially met criteria for sepsis given heart rate greater than 90 and respiratory rate greater than 20 with suspected source of infectionwound to her right great toe. Blood cultures were obtained additional labs were significant for a normal white blood cell count mildly elevated glucose 150 magnesium 1.7 procalcitonin 0.17 lactic acid 1.6 no sign of urinary tract infection she had a CT of her chest abdomen pelvis performed which revealed diffuse mosaic attenuation within the lungs bilaterally differential considerations include small airway disease, small vessel disease and interstitial infiltrates, the sigmoid colon appears somewhat thickened they reflect mild nonspecific colitis. Patient also had x-ray of her right foot which showed hallux valgus deformity at the first MTP, diffuse osteopenia midfoot degenerative changes with no fractures identified no radiographic evidence of osteomyelitis. Venous ultrasound performed bilateral lower extremities negative for DVT arterial ultrasound the right lower extremity negative for flow-limiting stenosis. Patient is criteria for sepsis with pos sible contributing sources including wound to the right great toe, possible nonspecific colitis, possible pneumonia. She is covered with antibiotics LevaquinFlagyl ED provider wishes to admit for further evaluation and management. - Past Medical/Surgical History Diabetic: No -: HTN -: Hyperlipidemia -: Hypothyroidism -: Obstructive sleep apnea -: Restless leg syndrome -: Edema -: Neuropathy -: GERD -: Degenerative changes to the bone -: Obesity -: Gout -: Left knee replacement -: History of abdominal surgery -: Carpal tunnel surgery Psychosocial/ Personal History: She states the fpc at [facility] and is bedbound she is . Her is handicap. She has 1 child. - Family History Father -: Cancer Notes: Esophageal Mother -: Hypertension, Cancer Notes: Lung - Social History Smoking Status: Never smoker Alcohol use: No CD- Drugs: No Caffeine use: Yes Place of Residence: Home <Otf Paulino - Last Filed: 04/14/22 03:15> Date of Service: 04/14/22 <Ramo Cleary - Last Filed: 04/14/22 18:48> Allergies No Known Allergies Allergy (Verified 04/14/22 03:52) Home Medications: Acetaminophen 325 mg PO Q4HP PRN 04/14/22 Allopurinol 1 tab PO DAILY 04/14/22 Amlodipine Besylate 10 mg PO BEDTIME 04/14/22 Ascorbic Acid [Vitamin C] 250 mg PO DAILY 04/14/22 Baclofen 10 mg PO Q8H PRN 04/14/22 Bisacodyl [Laxative] 2 tab PO BEDTIME PRN 04/14/22 Famotidine [Pepcid] 20 mg PO BEDTIME 04/14/22 Meloxicam 7.5 mg PO DAILY 04/14/22 Multivitamin [Multiple Vitamins] 1 tab PO DAILY 04/14/22 Nystatin Powder [Mycostatin (Powder)] 15 appl TOP Q12H PRN 04/14/22 Potassium Chloride 20 meq PO BID 04/14/22 Pravastatin Sodium 20 mg PO BEDTIME 04/14/22 Zinc Amino Acid Chelate [Zinc] 50 mg PO DAILY 04/14/22 sulfaSALAzine [Sulfasalazine] 500 mg PO BID 04/14/22 Review of Systems 10-point ROS is otherwise unremarkable General: Weakness, Malaise Gastrointestinal: Nausea, Constipation <Otf Paulino - Last Filed: 04/14/22 03:15> Physical Examination - Physical Exam General: Alert, In no apparent distress, Oriented x3, Obese HEENT: Atraumatic, PERRLA, Mucous membr. moist/pink, EOMI, Sclerae nonicteric Neck: Supple, 2+ carotid pulse no bruit, No LAD, Without JVD or thyroid abnormality Respiratory: Clear to auscultation bilaterally, Diminished Cardiovascular: Regular rate/rhythm, Normal S1 S2, Edema Capillary refill: <2 Seconds Gastrointestinal: Normal bowel sounds, No tenderness Musculoskeletal: No tenderness Integumentary: No rashes Neurological: Normal speech, Normal strength at 5/5 x4 extr, Normal tone, Normal affect - Studies Laboratory Data (last 24 hrs) 04/13/22 22:30: PT 11.1, INR 1.01 04/13/22 22:30: WBC 5.40, Hgb 12.1, Hct 38.1, Plt Count 203 04/13/22 22:30: Sodium 139, Potassium 4.5, BUN 28 H, Creatinine 0.73, Glucose 150 H, Magnesium 1.7 L <Otf Paulino - Last Filed: 04/14/22 03:15> - Studies Laboratory Data (last 24 hrs) 04/13/22 22:30: PT 11.1, INR 1.01 04/13/22 22:30: WBC 5.40, Hgb 12.1, Hct 38.1, Plt Count 203 04/13/22 22:30: Sodium 139, Potassium 4.5, BUN 28 H, Creatinine 0.73, Glucose 150 H, Magnesium 1.7 L <Ramo Cleary - Last Filed: 04/14/22 18:48> Assessment and Plan - Plan Assessment: Sepsis Hypertension Hyperlipidemia Hypothyroidism GERD RA/DJD/medical debility Plan: Sepsis: SIRS criteria present heart rate greater than 90, respiratory rate greater than 20. Source of infection possibly multifactorial patient with wound to the right great toe, nonspecific colitis and possible pneumonia on CT. No significant hypotension and lactate less than 2 patient did not receive 30 cc/kg fluid bolus. She was started on antibiotics with Levaquin/Flagyl. We will continue with incentive spirometry, wound healing consult. Blood cultures were obtained we will follow. Hypertension: Hold antihypertensive agents given recently diagnosed sepsis, restart when appropriate. Hyperlipidemia: Continue home medications once verified. Hypothyroidism: Continue home medications once verified. GERD: Continue home medications once verified. RA/DJD/medical debility: Continue home medications once verified. DVT PPX: Lovenox Code status: Full Discharge Plan: Home Plan to discharge in: 72 Hours - Advance Directives Does patient have a Living Will: Yes Does patient have a Durable POA for Healthcare: Yes - Code Status/Comfort Care Code Status Assessed: Yes (Full code) Critical Care: No Time Spent Managing Pts Care (In Minutes): 70 <Otf Paulino - Last Filed: 04/14/22 03:15> Physician Review: Patient Assessed, Agree with Above Assessment and Plan <Ramo Cleary - Last Filed: 04/14/22 18:48>
[2022-04-14] MEDS ORDERED: ONDANSETRON 4 MG/2 ML VIAL IV PRN (03:51)
[2022-04-14 04:22] VITALS: BMI 47.0
[2022-04-14 06:28] LABS: Absolute Lymphocytes (CBC) 0.5 K/uL (0.7-4.9); Hematocrit 33.9 % (36.0-45.0); Lymphocytes % 12.5 % (15.3-44.8); MPV 8.6 fL (7.6-11.3); RBC Red Blood Cell Count 3.89 M/uL (3.86-4.86)
[2022-04-14 06:51] LABS: Bilirubin Total 0.2 mg/dL (0.2-1.0); Magnesium 1.8 mg/dL (1.8-2.4); Potassium 4.5 mmol/L (3.5-5.1); Protein, Total 5.6 g/dL (6.4-8.2); Thyroid Stimulating Hormone 3.71 uIU/mL (0.360-3.740)
[2022-04-14 07:41] LABS: Blood Morphology Comment NOT SEEN (NOT SEEN); Platelet Estimate ADEQ; White Blood Cell Scan OK (OK)
[2022-04-14] MEDS ORDERED: MAGNESIUM SULFATE 1 gm IVPB 1 GM/100 ML BAG IV ONE (09:00)
[2022-04-14] MEDS: ENOXAPARIN 40 MG/0.4 ML SQ SCH (09:29)
[2022-04-14] MEDS: METRONIDAZOLE 500mg IVPB 500 MG/100 ML BAG IV SCH ×2 (09:29→16:46)
--- NOTE | 2022-04-14 20:16 | RAD REPORT ---
EXAM DESCRIPTION: CT - Head Brain Wo Cont - 04/13/2022 11:49 pm CLINICAL HISTORY: AMS TECHNIQUE: Axial computed tomography images of the head/brain without intravenous contrast. Sagitt al and coronal reformatted images were created and reviewed. This CT exam was performed using one o r more of the following dose reduction techniques: automated exposure control, adjustment of the mA and/or kV according to patient size, and/or use of iterative reconstruction technique. COMPARISON: No relevant prior studies available. FINDINGS: Brain: Mild to moderate cerebral atrophy. Moderate bilateral periventricular and subcort ical white matter low-attenuation which can be seen in the setting of chronic microvascular angiopath y. No hemorrhage. Ventricles: Moderate ventriculomegaly. Borderline ventricular prominence compared with degree of pa renchymal volume loss. Bones/joints: Unremarkable. No acute fracture. Soft tissues: Unremarkable. Vasculature: There is atherosclerotic disease of the internal carotid arteries bilaterally. Sinuses: Unremarkable as visualized. No acute sinusitis. Mastoid air cells: Unremarkable as visualized. No mastoid effusion. IMPRESSION: 1. No acute hemorrhage, focal mass or large territory infarction. 2. Borderline ventricular prominence compared with degree of parenchymal volume loss. Prominent madan tral ventricles may be secondary to central cortical atrophy versus normal pressure hydrocephalus. 3. Other findings as above. Electronically signed by: Erendira Mcknight MD 04/14/2022 12:27 AM CDT Due to temporary technical issues with the PACS/Fluency reporting system, reports are being signed by the in house radiologists without review as a courtesy to insure prompt reporting. The interpreting radiologist is fully responsible for the content of the report.
--- NOTE | 2022-04-14 20:23 | RAD REPORT ---
EXAM DESCRIPTION: CT - Chest Abdomen Pelvis W Cont - 04/13/2022 11:49 pm CLINICAL HISTORY: Altered mental status TECHNIQUE: Axial computed tomography images of the chest, abdomen and pelvis with intravenous contra st. Sagittal and coronal reformatted images were created and reviewed. This CT exam was performed using one or more of the following dose reduction techniques: automated exposure control, adjustme nt of the mA and/or kV according to patient size, and/or use of iterative reconstruction technique. COMPARISON: No relevant prior studies available. FINDINGS: CHEST: Lungs: Mosaic attenuation within the lungs bilaterally with an upper lobe predominance. Pleural space: Unremarkable. No significant effusion. No pneumothorax. Heart: The heart is mildly enlarged. No significant pericardial effusion. No significant lópez ry artery calcifications. ABDOMEN: Liver: Unremarkable. No mass. Gallbladder and bile ducts: Unremarkable. No calcified stones. No ductal dilation. Pancreas: Moderate pancreatic parenchymal atrophy. No ductal dilation. Spleen: Unremarkable. No splenomegaly. Adrenals: Unremarkable. No mass. Kidneys and ureters: Bilateral renal cysts measuring 4 cm on the right and 3.8 cm on the left. No f ollow-up imaging is necessary. No calculi. No hydronephrosis. No solid mass. Stomach and bowel: Postsurgical changes of the stomach. Duodenal diverticula. Moderate stool within the proximal to mid large bowel. Colonic diverticula without adjacent inflammatory change. The sigmo id colon appears somewhat thickened. PELVIS: Appendix: Normal caliber appendix. No findings to suggest acute appendicitis. Bladder: The urinary bladder is decompressed around a Jenkins catheter. Reproductive: Unremarkable as visualized. CHEST, ABDOMEN and PELVIS: Intraperitoneal space: Unremarkable. No significant fluid collection. No free air. Bones/joints: Multilevel spondylosis. Moderate degenerative changes at the glenohumeral joints bila terally. No acute fracture. No dislocation. Soft tissues: Prior ventral hernia repair. Vasculature: Thoracic aortic atherosclerosis. No aortic aneurysm. Lymph nodes: Unremarkable. No enlarged lymph nodes. IMPRESSION: 1. Diffuse mosaic attenuation within the lungs bilaterally. Differential consideration s include small airways disease, small vessel disease and interstitial infiltrates. 2. The sigmoid colon appears somewhat thickened and may reflect mild nonspecific colitis. 3. Other findings as above. Electronically signed by: Erendira Mcknight MD 04/14/2022 12:35 AM CDT Due to temporary technical issues with the PACS/Fluency reporting system, reports are being signed by the in house radiologists without review as a courtesy to insure prompt reporting. The interpreting radiologist is fully responsible for the content of the report.
[2022-04-14] MEDS: Levofloxacin500mg IV 500 MG/100 ML BAG IV SCH (21:50)
[2022-04-15] MEDS: METRONIDAZOLE 500mg IVPB 500 MG/100 ML BAG IV SCH ×3 (00:53→16:01)
[2022-04-15 05:34] LABS: Absolute Lymphocytes (CBC) 0.4 K/uL (0.7-4.9); Hematocrit 32.5 % (36.0-45.0); MCV 86.7 fL (80-100); MPV 8.3 fL (7.6-11.3); RBC Red Blood Cell Count 3.75 M/uL (3.86-4.86)
[2022-04-15 05:49] LABS: Albumin 1.8 g/dL (3.4-5.0); Bilirubin Total 0.3 mg/dL (0.2-1.0); Potassium 3.8 mmol/L (3.5-5.1); Protein, Total 5.1 g/dL (6.4-8.2)
[2022-04-15] MEDS ORDERED: POTASSIUM 25 MEQ EFFERV TAB PO ONE (06:14)
[2022-04-15] MEDS: ENOXAPARIN 40 MG/0.4 ML SQ SCH (09:09)
--- NOTE | 2022-04-15 15:58 | EKG ---
Test Date: 2022-04-13 Test Time: 19:49:53 [employer] Associate: RICHARD MEASUREMENT RESULTS: Intervals: Rate: 98 DE: 146 QRSD: 132 QT: 370 QTc: 472 [place]: P: 57 DE: 146 QRS: -63 T: 56 INTERPRETIVE STATEMENTS: Normal sinus rhythm Right bundle branch block Left anterior fascicular block Bifascicular block Possible Lateral infarct, age undetermined Cannot rule out Inferior infarct (masked by fascicular block?), age undetermined Abnormal ECG Electronically Signed On 04-15-22 15:55:07 CDT by Justen Andres
--- NOTE | 2022-04-15 18:43 | P.PN ---
Subjective Date of Service: 04/15/22 Chief Complaint: Sepsis Subjective: No new changes No acute events overnight. She denies any specific symptoms. She states that her primary concern is her foot infection and her generalized weakness. Review of Systems 10-point ROS is otherwise unremarkable General: Weakness (generalized) Physical Examination - Vital Signs Temperature: 97.8 F Blood Pressure: 134/67 Pulse: 81 Respirations: 18 Pulse Ox (%): 90 - Physical Exam General: Alert, In no apparent distress, Oriented x3 HEENT: Atraumatic, PERRLA, Mucous membr. moist/pink, EOMI, Sclerae nonicteric Neck: Supple, JVD not distended Respiratory: Clear to auscultation bilaterally, Normal air movement Cardiovascular: No edema, Regular rate/rhythm, Normal S1 S2, No gallops, No rubs, No murmurs Gastrointestinal: Normal bowel sounds, Soft and benign, Non-distended, No tenderness, No rebound, No guarding Musculoskeletal: No clubbing Integumentary: Skin lesion (skin tear/ulceration? on base of right toe with surroundinge erythema) Neurological: Normal speech, Cranial nerves 3-12 intact, Normal affect Assessment And Plan - Plan # Sepsis likely secondary to Bilateral Pneumonia vs Mild Sigmoid Colitis She met sepsis criteria based on HR > 90 bpm and RR > 20 breaths/min, and WBC < 4,000, and the suspected source is pneumonia vs colitis. - Sepsis order set was initiated - Initial Lactate was 1.6 - Blood cultures drawn before antibiotics were given - Broad spectrum antibiotics started: Levofloxacin + Metronidazole - In regards to fluids: - 30 mL/kg of IV fluids was not administered given SBP > 90, MAP > 65, lactic acid < 4 - Consult wound care - Radiographic Studies: - CXR = "No acute cardiopulmonary disease." - RLE arterial Doppler = "No flow limiting stenosis within the right lower extremity." - Bilateral venous Doppler = "No DVT in either lower extremity." - Right foot x-ray = "Hallux valgus deformity at the first MTP. Diffuse osteopenia is noted. Midfoot degenerative changes. No fractures identified. No radiographic evidence of osteomyelitis." - CT head = "1. No acute hemorrhage, focal mass or large territory infarction. 2. Borderline ventricular prominence compared with degree of parenchymal volume loss. Prominent central ventricles may be secondary to central cortical atrophy versus normal pressure hydrocephalus." - CT chest/abdomen/pelvis = "1. Diffuse mosaic attenuation within the lungs bilaterally. Differential considerations include small airways disease, small vessel disease and interstitial infiltrates. 2. The sigmoid colon appears somewhat thickened and may reflect mild nonspecific colitis." - MRI right foot = pending # Deconditioning # Rheumatoid Arthritis # Degenerative Joint Disease - Consult PT - Resume home medications once verified # Hypertension - Home anti-hypertensive currently on hold given concern for sepsis # Hyperlipidemia # Hypothyroidism # Gastroesophageal Reflux Disease - Resume home medications once verified Ramo Cleary M.D.
[2022-04-15] MEDS: Levofloxacin500mg IV 500 MG/100 ML BAG IV SCH (21:16)
[2022-04-16] MEDS: METRONIDAZOLE 500mg IVPB 500 MG/100 ML BAG IV SCH ×3 (00:49→16:08)
[2022-04-16 03:48] LABS: Absolute Lymphocytes (CBC) 0.6 K/uL (0.7-4.9); Hematocrit 31.9 % (36.0-45.0); MCV 86.5 fL (80-100); MPV 8.5 fL (7.6-11.3); RBC Red Blood Cell Count 3.68 M/uL (3.86-4.86)
[2022-04-16 04:24] LABS: Albumin 1.9 g/dL (3.4-5.0); Bilirubin Total 0.3 mg/dL (0.2-1.0); Magnesium 1.9 mg/dL (1.8-2.4); Potassium 3.8 mmol/L (3.5-5.1); Protein, Total 5.1 g/dL (6.4-8.2)
[2022-04-16] MEDS ORDERED: POTASSIUM CL SA 10 MEQ TAB PO ONE (04:53)
[2022-04-16] MEDS: ENOXAPARIN 40 MG/0.4 ML SQ SCH (08:59)
--- NOTE | 2022-04-16 15:04 | RAD REPORT ---
EXAM DESCRIPTION: MRIFoot Right Wo Cont04/16/2022 2:35 pm CLINICAL HISTORY: Right foot pain COMPARISON: 2014 TECHNIQUE: Axial, sagittal and coronal magnetic resonance imaging of the right foot was obtained. FINDINGS: Diffuse edema within dorsal subcutaneous tissues. Marked hallux valgus deformity. No significant abnormal signal within the bones to suggest osteomyelitis IMPRESSION: Cellulitis No evidence of osteomyelitis
[2022-04-16] MEDS ORDERED: Levofloxacin 750mg IV 750 MG/150 ML BAG IV SCH (17:00)
[2022-04-17] MEDS: METRONIDAZOLE 500mg IVPB 500 MG/100 ML BAG IV SCH ×2 (00:51→08:37)
[2022-04-17 05:40] LABS: Absolute Lymphocytes (CBC) 0.6 K/uL (0.7-4.9); Hematocrit 32.8 % (36.0-45.0); Lymphocytes % 17.5 % (15.3-44.8); MCV 85.5 fL (80-100); MPV 8.1 fL (7.6-11.3); RBC Red Blood Cell Count 3.84 M/uL (3.86-4.86)
[2022-04-17 05:52] LABS: Albumin 1.9 g/dL (3.4-5.0); Bilirubin Total 0.3 mg/dL (0.2-1.0); Protein, Total 5.2 g/dL (6.4-8.2)
[2022-04-17 07:34] LABS: Blood Morphology Comment NOT SEEN (NOT SEEN); Platelet Estimate ADEQ; Toxic Granulation NOTED
[2022-04-17] MEDS: ENOXAPARIN 40 MG/0.4 ML SQ SCH (08:38)
[2022-04-17] MEDS ORDERED: MUPIROCIN 2% OINT 22GM TUBE TOP SCH (09:00)
--- NOTE | 2022-04-17 09:25 | P.PN ---
Subjective Date of Service: 04/16/22 Subjective: No new changes, No C/O voiced, Improving Review of Systems Difficult Physical Examination - Vital Signs Temperature: 96.5 F Blood Pressure: 122/64 Pulse: 69 Respirations: 18 Pulse Ox (%): 95 - Physical Exam General: Alert, In no apparent distress, Oriented x2 HEENT: Atraumatic, PERRLA, EOMI Neck: Supple, JVD not distended Respiratory: Clear to auscultation bilaterally, Normal air movement Cardiovascular: Regular rate/rhythm, Normal S1 S2 Gastrointestinal: Normal bowel sounds, Soft and benign, Non-distended, No tenderness Musculoskeletal: No tenderness Integumentary: Other (Skin breakdown on the big toe with minimal erythema) Neurological: Normal speech, Normal tone, Normal affect Lymphatics: No axilla or inguinal lymphadenopathy - Studies Medications List Reviewed: Yes Assessment & Plan - Problems (Diagnosis) (1) Cellulitis Current Visit: Yes Status: Acute (2) CKD (chronic kidney disease) Onset Date: 10/11/16 Current Visit: No Status: Chronic Qualifiers: Chronic kidney disease stage: stage 3 (moderate) (3) Falls Onset Date: 10/11/16 Current Visit: No Status: Chronic Qualifiers: Encounter type: subsequent encounter Qualified Code(s): W19.XXXD - Unspecified fall, subsequent encounter (4) Gout Onset Date: 11/19/16 Current Visit: No Status: Chronic Qualifiers: Gout site: multiple sites Gout etiology: unspecified cause Chronicity: chronic Qualified Code(s): M1A.09X0 - Idiopathic chronic gout, multiple sites, without tophus (tophi) (5) HTN (hypertension) Onset Date: 10/11/16 Current Visit: No Status: Chronic Qualifiers: Hypertension type: essential hypertension Qualified Code(s): I10 - Essential (primary) hypertension (6) Hyperlipemia Onset Date: 10/11/16 Current Visit: No Status: Chronic Qualifiers: Hyperlipidemia type: unspecified Qualified Code(s): E78.5 - Hyperlipidemia, unspecified (7) Hypothyroidism Onset Date: 11/19/16 Current Visit: No Status: Chronic Qualifiers: Hypothyroidism type: unspecified Qualified Code(s): E03.9 - Hypothyroidism, unspecified (8) Neuropathy Onset Date: 11/19/16 Current Visit: No Status: Chronic (9) Obesity Onset Date: 11/19/16 Current Visit: No Status: Chronic Qualifiers: Obesity type: unspecified obesity type Qualified Code(s): E66.9 - Obesity, unspecified (10) Obstructive sleep apnea Onset Date: 11/19/16 Current Visit: No Status: Chronic (11) Osteoarthritis Onset Date: 11/19/16 Current Visit: No Status: Chronic Qualifiers: Osteoarthritis location: multiple joints Osteoarthritis type: primary - Plan PLAN: 1. Continue with IV antibiotic 2. Continue with local wound care 3. Wound care consultation/surgical consultation 4. Gentle IV hydration 5. Monitor CBC 6. Strict blood sugar monitoring 7. Pain control 8. GI and DVT prophylaxis - Advance Directives Does patient have a Living Will: Yes Does patient have a Durable POA for Healthcare: Yes Physician Review: Patient Assessed, Agree with Above Assessment and Plan
--- NOTE | 2022-04-17 09:26 | P.DS ---
Discharge Date: 04/17/22 Disposition: TRANSFER TO [facility] Discharge Condition: GOOD Reason for Admission: Sepsis - Problems (1) Cellulitis Current Visit: Yes Status: Acute (2) CKD (chronic kidney disease) Onset Date: 10/11/16 Current Visit: No Status: Chronic Qualifiers: Chronic kidney disease stage: stage 3 (moderate) (3) Falls Onset Date: 10/11/16 Current Visit: No Status: Chronic Qualifiers: Encounter type: subsequent encounter Qualified Code(s): W19.XXXD - Unspecified fall, subsequent encounter (4) Gout Onset Date: 11/19/16 Current Visit: No Status: Chronic Qualifiers: Gout site: multiple sites Gout etiology: unspecified cause Chronicity: chronic Qualified Code(s): M1A.09X0 - Idiopathic chronic gout, multiple sites, without tophus (tophi) (5) HTN (hypertension) Onset Date: 10/11/16 Current Visit: No Status: Chronic Qualifiers: Hypertension type: essential hypertension Qualified Code(s): I10 - Essential (primary) hypertension (6) Hyperlipemia Onset Date: 10/11/16 Current Visit: No Status: Chronic Qualifiers: Hyperlipidemia type: unspecified Qualified Code(s): E78.5 - Hyperlipidemia, unspecified (7) Hypothyroidism Onset Date: 11/19/16 Current Visit: No Status: Chronic Qualifiers: Hypothyroidism type: unspecified Qualified Code(s): E03.9 - Hypothyroidism, unspecified (8) Neuropathy Onset Date: 11/19/16 Current Visit: No Status: Chronic (9) Obesity Onset Date: 11/19/16 Current Visit: No Status: Chronic Qualifiers: Obesity type: unspecified obesity type Qualified Code(s): E66.9 - Obesity, unspecified (10) Obstructive sleep apnea Onset Date: 11/19/16 Current Visit: No Status: Chronic (11) Osteoarthritis Onset Date: 11/19/16 Current Visit: No Status: Chronic Qualifiers: Osteoarthritis location: multiple joints Osteoarthritis type: primary Brief History of Present Illness: 81-year-old female with history of COPD, hyperlipidemia, GERD, obesity, RA, gout who is bedbound resident of a [facility] presents emergency department initially for concern of wound to the right great toe as well as low blood pressure. Daughter reports she was notified of wound to the right great toe yesterday and concern that her mother may be becoming ill. She is evaluated in the emergency department she initially met criteria for sepsis given heart rate greater than 90 and respiratory rate greater than 20 with suspected source of infectionwound to her right great toe. Blood cultures were obtained additional labs were significant for a normal white blood cell count mildly elevated glucose 150 magnesium 1.7 procalcitonin 0.17 lactic acid 1.6 no sign of urinary tract infection she had a CT of her chest abdomen pelvis performed which revealed diffuse mosaic attenuation within the lungs bilaterally differential considerations include small airway disease, small vessel disease and interstitial infiltrates, the sigmoid colon appears somewhat thickened they reflect mild nonspecific colitis. Patient also had x-ray of her right foot which showed hallux valgus deformity at the first MTP, diffuse osteopenia midfoot degenerative changes with no fractures identified no radiographic evide nce of osteomyelitis. Venous ultrasound performed bilateral lower extremities negative for DVT arterial ultrasound the right lower extremity negative for flow-limiting stenosis. Patient is criteria for sepsis with possible contributing sources including wound to the right great toe, possible nonspecific colitis, possible pneumonia. She is covered with antibiotics LevaquinFlagyl ED provider wishes to admit for further evaluation and management. Hospital Course: Patient has cellulitis on the right toe. Patient was given wound care and IV antibiotics. Patient clinical symptoms are improved. Patient doing well with no complaints. At this time, she is stable for discharge without patient follow-up with wound care. Continue with oral antibiotic therapy. Vital Signs/Physical Exam: Temp Pulse Resp BP Pulse Ox 96.5 F L 69 18 122/64 95 04/17/22 09:25 04/17/22 09:25 04/17/22 09:25 04/17/22 09:25 04/17/22 09:25 General: Alert, In no apparent distress, Oriented x2 Laboratory Data at Discharge: WBC 3.50 K/uL (4.3-10.9) L 04/17/22 05:16 Hgb 10.8 g/dL (12.0-15.0) L 04/17/22 05:16 Hct 32.8 % (36.0-45.0) L 04/17/22 05:16 Plt Count 170 K/uL (152-406) 04/17/22 05:16 PT 11.1 SECONDS (9.5-12.5) 04/13/22 22:30 INR 1.01 04/13/22 22:30 Sodium 137 mmol/L (136-145) 04/17/22 05:16 Potassium 4.0 mmol/L (3.5-5.1) 04/17/22 05:16 BUN 7 mg/dL (7-18) 04/17/22 05:16 Creatinine 0.24 mg/dL (0.55-1.3) L 04/17/22 05:16 Glucose 112 mg/dL (74-106) H 04/17/22 05:16 Magnesium 2.0 mg/dL (1.8-2.4) 04/17/22 05:16 Total Bilirubin 0.3 mg/dL (0.2-1.0) 04/17/22 05:16 AST 15 U/L (15-37) 04/17/22 05:16 ALT 14 U/L (12-78) 04/17/22 05:16 Alkaline Phosphatase 51 U/L (45-117) 04/17/22 05:16 Home Medications: Acetaminophen 325 mg PO Q4HP PRN 04/14/22 Allopurinol 1 tab PO DAILY 04/14/22 Amlodipine Besylate 10 mg PO BEDTIME 04/14/22 Ascorbic Acid [Vitamin C] 250 mg PO DAILY 04/14/22 Baclofen 10 mg PO Q8H PRN 04/14/22 Bisacodyl [Laxative] 2 tab PO BEDTIME PRN 04/14/22 Famotidine [Pepcid] 20 mg PO BEDTIME 04/14/22 Meloxicam 7.5 mg PO DAILY 04/14/22 Multivitamin [Multiple Vitamins] 1 tab PO DAILY 04/14/22 Nystatin Powder [Mycostatin (Powder)*] 15 appl TOP Q12H PRN 04/14/22 Potassium Chloride 20 meq PO BID 04/14/22 Pravastatin Sodium 20 mg PO BEDTIME 04/14/22 Zinc Amino Acid Chelate [Zinc] 50 mg PO DAILY 04/14/22 sulfaSALAzine [Sulfasalazine] 500 mg PO BID 04/14/22 Levofloxacin [Levaquin] 500 mg PO DAILY #10 04/17/22 Minocycline HCl 100 mg PO BID #20 04/17/22 Mupirocin Oint [Bactroban 2% Ointment*] 1 appl TOP DAILY #1 tube 04/17/22 New Medications: Mupirocin Oint [Bactroban 2% Ointment*] 1 appl TOP DAILY #1 tube Levofloxacin [Levaquin] 500 mg PO DAILY #10 Minocycline HCl 100 mg PO BID #20 Physician Discharge Instructions: -DC IV and DC home -Follow-up with PCP at [facility] in [facility] hours -Follow-up with wound care in 1 week -Please call Dr. Leary at [phone] if any questions regarding hospital stay -Please call nursing station at [phone] if any nursing or medication questions -Return to the emergency room if symptoms worsen Diet: AHA Activity: Fall precautions Followup: NONE,NONE [Primary Care Provider] - Time spent managing pt's care (in minutes): 35
[2022-04-17 09:54] VITALS: O2SAT 95
[2022-04-17] MEDS ORDERED: levoFLOXacin 750 MG TAB PO SCH (15:00)
[2022-04-17 17:06] VITALS: BP 109/63; TEMP 97.7
== END 2022-04-17 16:30 | DRG 872 ==
LOC: ER 19:21 → ERHOLD 04-14 02:42 → 4TH 04-14 02:53
PROVIDERS: ADMIT Internal Medicine; ATTEND Hospitalist
DX: A41.9 Sepsis, unspecified organism (principal); Z68.42 Body mass index [BMI] 45.0-49.9, adult; E66.9 Obesity, unspecified; L03.031 Cellulitis of right toe; M06.9 Rheumatoid arthritis, unspecified; E03.9 Hypothyroidism, unspecified; E78.5 Hyperlipidemia, unspecified; K52.9 Noninfective gastroenteritis and colitis, unspecified; I12.9 Hypertensive chronic kidney disease with stage 1 through stage 4 chronic kidney disease, or unspecified chronic kidney disease; N18.30 Chronic kidney disease, stage 3 unspecified; G47.33 Obstructive sleep apnea (adult) (pediatric); G62.9 Polyneuropathy, unspecified; M15.9 Polyosteoarthritis, unspecified; K21.9 Gastro-esophageal reflux disease without esophagitis; J44.9 Chronic obstructive pulmonary disease, unspecified; M1A.09X0 Idiopathic chronic gout, multiple sites, without tophus (tophi); Z95.0 Presence of cardiac pacemaker; Z74.01 Bed confinement status; Z79.899 Other long term (current) drug therapy; Z96.652 Presence of left artificial knee joint; Z20.822 Contact with and (suspected) exposure to COVID-19
CPT/HCPCS: 36415; 51702; 70450; 71045; 71260; 74177; 80048; 80053; 81003; 81015; 82805; 83605; 83735; 83880; 84145; 84439; 84443; 84484; 85025; 85610; 87040; 87811; 93005; 93926; 93970; 94010; 96365; 96366; 96367; 97110; 99251; 99285; J0692; J1650; J3475; J7040; Q9967; U0003